=== PATIENT | female | born 1980 | race Caucasian/White ===

== ENCOUNTER → 2023-06-09 08:20 | Outpatient (BNVA) | payer OTHER, SELFPAY | PROVIDERS: Visit Provider Physician Assistant ==

== ENCOUNTER 2023-06-23 11:22 | Outpatient (AMB) | payer OTHER, MEDICAID, SELFPAY ==
--- NOTE | 2023-06-23 12:44 | MHC.OFFVISWM ---
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.6 HPI Details Start time: 12.15pm, End time: 1.30pm ?I spent 40 minutes speaking with the patient on the phone plus an additional 5 minutes reviewing and updating records for a total of 45 minutes HPI Comments History of Present Illness Details Previous weight loss efforts: self diets, GLP-1 (Semaglutide lost 27lbs in 3 months but regained all of it) Wakes up: 6.30am, Sleeps: 11pm Breakfast: 9am (eggs and cheese with bagel) Lunch: 2pm (mac and cheese, fast food) Dinner: 6pm (chicken, vegetable, potatoes) Snacks: 4pm (donut), 8pm (ice cream) Exercise: has home treadmill and rowing machine Fluids: Coffee 3-4 cups/day (sugar), tea: none, soda: none, juice: x3/wk cranberry juice, ETOH: 1-2/wk (1 glass each) PFSH Medical History (Updated 06/23/23 @ 13:00 by Shahab Leavitt MD) Heavy menses Sleep apnea with use of continuous positive airway pressure (CPAP) Surgical History (Updated 06/09/23 @ 08:57 by Kirstin Obregon CMA) Hx of dilation and curettage History of wisdom tooth extraction Hx of breast biopsy Family History (Updated 06/09/23 @ 08:58 by Kirstin Obregon CMA) Maternal Aunt Breast CA Social History (Updated 06/09/23 @ 08:58 by Kirstin Obregon CMA) Alcohol intake: current Alcohol intake frequency: other Comment: once a week Patient Tobacco Use Status: Never used Tobacco Assessment & Plan Assessment & Plan (1) Obesity: Code(s): E66.9 - Obesity, unspecified Qualifiers: Obesity type: due to excess calories Obesity classification: adult class 2 (BMI 35 - 39.9) Serious obesity comorbidity presence: with serious comorbidity Body mass index: BMI 36.0-36.9 Qualified Code(s): E66.01 - Morbid (severe) obesity due to excess calories; Z68.36 - Body mass index [BMI] 36.0-36.9, adult Plan: 1.? Plan for lap sleeve gastrectomy. If diaphragmatic or ventral hernias are present at time of surgery, these will be repaired laparoscopically as well. Risks and complications were discussed in detail including possible conversion to an open procedure, anastomotic leak, bleeding requiring transfusion, small bowel obstruction, , DVT and pulmonary embolism, cardiac, or pulmonary complications, as moth exterminator complications such as anastomotic ulcer, insufficient weight loss and vitamin deficiencies. I emphasized the importance of close follow-up, adherence to instructions and good communication. 2. Nutritional counseling. Start with 2 Isopure protein (buy at [employer], [employer], [employer], [employer]) shakes (HALF scoop in 8oz water each) at 7am-9am and 10am-12pm, 2 protein bars (Zone Perfect protein bars, buy at [employer], [employer], [employer], or [employer]) at 1pm-3pm, 4pm-6pm, dinner at 7pm (8 forks of protein and 8 forks of salad/vegetables) and one more Isopure protein shake (HALF scoop in 8oz water) after dinner at 11pm-1am. So you do 3 protein shakes, 2 protein bars and one meal per day. Meal to include lean meat (beef, fish, pork, turkey, chicken), or iraqi yogurt, or egg whites, or beans with a salad with olive oil and fruits (berries, pears, apples, kiwi). Avoid salt, breads, potatoes, rice, pasta, desserts. 3. Each shake would be drunk slowly, like coffee in a period of 2 hours. 4. Cut each bar in 4 pieces and eat each piece in 30min ?to make each bar last 2 hours. 5. I emphasized the importance of measuring accurately the food portion and measure it when serving the food in plate 6. The meal portions include 8 full-size forks of meat and 8 full-size forks of salad. You always eat the meat portion but you can replace up to 4 forks for salad/vegetables with rice, potatoes or pasta, or a fruit ?if you like. The less you do it the better weight loss will be. 7. One full-size fork is what it can be scooped on the fork without falling aside and not what can be bit with the fork. Use regular forks like those you find in a typical restaurant. 8.? Please send me weight measurements tomorrow and then once a week. Always include your diet and exercise plan. 9. Start treadmill with an incline of 2.0 and speed of 3.0. Increase incline by 1 every 3 min to a max incline of 8.0, stay 3min at 8.0 and then return to 2.0 and repeat same steps until calorie goal is met. Goal is to burn 2000 calories per week on exercise, which means either 300 calories daily, or 400 calories 5 days per week, or 500 calories 4 days per week, or 650 calories 3 days per week. 10.?It is important of avoiding and for at least 18 months postoperatively and has been discussed at the infosession. 11. Goal is to lose at least 1.5-2lbs per week 12. Goal to lose 10% of your weight before surgery, which is about 23lbs. Ultimate weight goal: 210lbs before surgery 13. Please follow the diet plan exactly without any change. If you don't like something about the plan or you feel hungry you need to communicate with me so I can help you revise the plan. You should not change the plan yourself. Orders: Orders Insulin Today E66.9 - Obesity, unspecified, G47.30 - Sleep apnea, unspecified, N92.0 - Excessive and frequent menstruation with regular cycle, Z68.36 - Body mass index [BMI] 36.0-36.9, adult Complete Blood Count Auto Diff Today E66.9 - Obesity, unspecified, G47.30 - Sleep apnea, unspecified, N92.0 - Excessive and frequent menstruation with regular cycle, Z68.36 - Body mass index [BMI] 36.0-36.9, adult Lipid Panel Today E66.9 - Obesity, unspecified, G47.30 - Sleep apnea, unspecified, N92.0 - Excessive and frequent menstruation with regular cycle, Z68.36 - Body mass index [BMI] 36.0-36.9, adult IRON PROFILE Today E66.9 - Obesity, unspecified, G47.30 - Sleep apnea, unspecified, N92.0 - Excessive and frequent menstruation with regular cycle, Z68.36 - Body mass index [BMI] 36.0-36.9, adult Comprehensive Met. Panel Today E66.9 - Obesity, unspecified, G47.30 - Sleep apnea, unspecified, N92.0 - Excessive and frequent menstruation with regular cycle, Z68.36 - Body mass index [BMI] 36.0-36.9, adult Vitamin B12 and Folate Today E66.9 - Obesity, unspecified, G47.30 - Sleep apnea, unspecified, N92.0 - Excessive and frequent menstruation with regular cycle, Z68.36 - Body mass index [BMI] 36.0-36.9, adult Zinc Today E66.9 - Obesity, unspecified, G47.30 - Sleep apnea, unspecified, N92.0 - Excessive and frequent menstruation with regular cycle, Z68.36 - Body mass index [BMI] 36.0-36.9, adult C Reactive Protein Today E66.9 - Obesity, unspecified, G47.30 - Sleep apnea, unspecified, N92.0 - Excessive and frequent menstruation with regular cycle, Z68.36 - Body mass index [BMI] 36.0-36.9, adult TSH reflex Free T4 Today E66.9 - Obesity, unspecified, G47.30 - Sleep apnea, unspecified, N92.0 - Excessive and frequent menstruation with regular cycle, Z68.36 - Body mass index [BMI] 36.0-36.9, adult Ferritin Today E66.9 - Obesity, unspecified, G47.30 - Sleep apnea, unspecified, N92.0 - Excessive and frequent menstruation with regular cycle, Z68.36 - Body mass index [BMI] 36.0-36.9, adult XR chest 2V Today E66.9 - Obesity, unspecified, G47.30 - Sleep apnea, unspecified, N92.0 - Excessive and frequent menstruation with regular cycle, Z68.36 - Body mass index [BMI] 36.0-36.9, adult ECG 12 lead EKG Today E66.9 - Obesity, unspecified, G47.30 - Sleep apnea, unspecified, N92.0 - Excessive and frequent menstruation with regular cycle, Z68.36 - Body mass index [BMI] 36.0-36.9, adult FL upper GI w air Today E66.9 - Obesity, unspecified, G47.30 - Sleep apnea, unspecified, N92.0 - Excessive and frequent menstruation with regular cycle, Z68.36 - Body mass index [BMI] 36.0-36.9, adult Hemoglobin A1c Today E66.9 - Obesity, unspecified, G47.30 - Sleep apnea, unspecified, N92.0 - Excessive and frequent menstruation with regular cycle, Z68.36 - Body mass index [BMI] 36.0-36.9, adult H Pylori Breath Test Today E66.9 - Obesity, unspecified, G47.30 - Sleep apnea, unspecified, N92.0 - Excessive and frequent menstruation with regular cycle, Z68.36 - Body mass index [BMI] 36.0-36.9, adult Vitamin B1 Today E66.9 - Obesity, unspecified, G47.30 - Sleep apnea, unspecified, N92.0 - Excessive and frequent menstruation with regular cycle, Z68.36 - Body mass index [BMI] 36.0-36.9, adult Vitamin A Today E66.9 - Obesity, unspecified, G47.30 - Sleep apnea, unspecified, N92.0 - Excessive and frequent menstruation with regular cycle, Z68.36 - Body mass index [BMI] 36.0-36.9, adult Vitamin D 25-OH Total Today E66.9 - Obesity, unspecified, G47.30 - Sleep apnea, unspecified, N92.0 - Excessive and frequent menstruation with regular cycle, Z68.36 - Body mass index [BMI] 36.0-36.9, adult US abdomen comp w elastography Today E66.9 - Obesity, unspecified, G47.30 - Sleep apnea, unspecified, N92.0 - Excessive and frequent menstruation with regular cycle, Z68.36 - Body mass index [BMI] 36.0-36.9, adult Referrals Behavioral Health Referral E66.9 - Obesity, unspecified, G47.30 - Sleep apnea, unspecified, N92.0 - Excessive and frequent menstruation with regular cycle, Z68.36 - Body mass index [BMI] 36.0-36.9, adult Nutrition/Dietitian Referral E66.9 - Obesity, unspecified, G47.30 - Sleep apnea, unspecified, N92.0 - Excessive and frequent menstruation with regular cycle, Z68.36 - Body mass index [BMI] 36.0-36.9, adult Telehealth Telehealth Location of provider rendering services: practice address Location of patient: address on file Patient Identification confirmed using: Name, : Yes Telehealth method: voice only Patient verbally consented to treatment: Yes Patient verbally consented to billing insurance company: Yes Patient informed of any privacy concerns related to visit: Yes Minutes spent on Phone/Video with Pt.: 45 Coding Level of Care Code Tele [facility] Pt Level 4 (08771) Diagnoses Class 2 severe obesity due to excess calories with serious comorbidity and body mass index (BMI) of 36.0 to 36.9 in adult E66.01; Z68.36 Obesity type: due to excess calories Obesity classification: adult class 2 (BMI 35 - 39.9) Serious obesity comorbidity presence: with serious comorbidity Body mass index: BMI 36.0-36.9 Time Spent (min) 45
[2023-06-23 12:54] VITALS: BMI 36.5
== END 2023-06-23 13:31 | disposition home or self-care (01) ==
LOC: HO.HBS 11:22
PROVIDERS: Visit Provider Surgery
DX: E66.01 Morbid (severe) obesity due to excess calories (principal); Z68.36 Body mass index [BMI] 36.0-36.9, adult
CPT/HCPCS: 99443

== ENCOUNTER → 2023-06-23 11:22 | Outpatient (BNVA) | payer OTHER, SELFPAY | PROVIDERS: Visit Provider Surgery ==

== ENCOUNTER 2023-06-26 08:23 | Outpatient (REF) | payer OTHER, SELFPAY ==
--- NOTE | ~2023-06-26 | US_ITS ---
EXAMINATION: US COMPLETE ABDOMEN WITH LIVER ELASTOGRAPHY CLINICAL INFORMATION: Obesity COMPARISON: None available. TECHNIQUE: Real-time imaging of the abdominal viscera. Noninvasive ultrasound liver fibrosis assessment is performed using [employer] ElastPQ point quantification shear wave elastography (2D-SWE) with a C5-2 MHz transducer. Multiple elastography samples are obtained. FINDINGS: PANCREAS: Normal. The visualized pancreatic head and body are normal in appearance. The remainder of the pancreas is obscured from visualization by the overlying bowel gas. ABDOMINAL AORTA: The proximal, middle, and distal aortic segments are normal in caliber. INFERIOR VENA CAVA: Visualized portions are normal. LIVER: Normal. The liver demonstrates normal size, contour and echogenicity. No focal lesion or intrahepatic biliary duct dilatation. The right lobe measures 17.6 cm in length. The left lobe measures 10.5 cm in length. Portal flow is antegrade. Shear wave liver elastography median stiffness is 1.46 m/s (reference: normal median stiffness is 1.3 m/s or less). IQR/median stiffness to assess sampling precision is 0.22 (reference: good quality data set is IQR/median stiffness of 0.15 or less). GALLBLADDER: Cholelithiasis is present without gallbladder wall thickening or pericholecystic fluid. COMMON BILE DUCT: Normal in caliber measuring 0.3 cm in diameter. RIGHT KIDNEY: Normal. No hydronephrosis. No renal calculi or focal parenchymal lesions. The kidney measures 11.2 cm in maximum dimension. LEFT KIDNEY: Normal. No hydronephrosis. No renal calculi or focal parenchymal lesions. The kidney measures 10 cm in maximum dimension. SPLEEN: Normal. The spleen measures 9.4 cm in maximum dimension. FREE FLUID: None. US/US abdomen comp w elastography IMPRESSION: 1. Cholelithiasis without evidence of acute cholecystitis. 2. Liver elastography: Although measurements appear to rule out compensated advanced chronic liver disease, there is statistical variability of the sampling which decreases accuracy. REFERENCE: Society of Radiologists in Ultrasound Liver Stiffness Thresholds (2019): LIVER STIFFNESS THRESHOLDS: *Liver Stiffness equal or less than 1.3 m/s: High probability of being normal. *Liver Stiffness less than 1.7 m/s: In the absence of other known clinical signs, rules out compensated advanced chronic liver disease. *Liver Stiffness 1.7-2.1 m/s: Suggestive of compensated advanced chronic liver disease but need further test for confirmation. *Liver Stiffness over 2.1 m/s: Rules in compensated advanced chronic liver disease. *Liver Stiffness over 2.4 m/s: Suggestive of clinically significant portal hypertension. QUALITY OF DATA SET: *IQR/Median value equal or less than 0.15 implies a quality data set. *IQR/Median value over 0.15 implies a poor quality data set. SIGNIFICANT CHANGE FROM PRIOR EXAM: Significant change if liver stiffness measurement is 10% or greater from prior exam. OTHER CONSIDERATIONS: The stage of liver fibrosis may be overestimated in the setting of acute hepatitis, liver inflammation, elevated liver function tests, hepatic vascular congestion, obstructive cholestasis, non-fasting state, and infiltrative diseases such as amyloidosis and lymphoma. In some patients with NAFLD, the liver stiffness thresholds for compensated advanced chronic liver disease may be lower. In causes other than viral hepatitis and NAFLD, liver stiffness thresholds are not well established.
== END 2023-06-26 08:24 | disposition home or self-care (01) ==
LOC: HO.US 08:23
PROVIDERS: PCP Internal Medicine; Visit Provider Surgery
DX: E66.9 Obesity, unspecified (principal); Z68.36 Body mass index [BMI] 36.0-36.9, adult; G47.30 Sleep apnea, unspecified; N92.0 Excessive and frequent menstruation with regular cycle
CPT/HCPCS: 76700; 76981

== ENCOUNTER 2023-07-03 08:18 | Outpatient (REF) | payer OTHER, MEDICAID, SELFPAY ==
--- NOTE | ~2023-07-03 | XR_ITS ---
EXAMINATION: XR CHEST CLINICAL INFORMATION: Obesity unspecified. COMPARISON: None available. TECHNIQUE: 2 views of the chest were obtained. FINDINGS: There is no gross pneumothorax. Heart size is normal. No pleural effusion. No focal consolidation to suggest pneumonia. Mild degenerative changes in the thoracic spine. XR/XR chest 2V IMPRESSION: No evidence of pneumonia.
[2023-07-03 08:38] LABS: MANUAL DIFF FLAG NO
--- NOTE | 2023-07-03 08:38 | ECG_ITS ---
Test Reason : OBESITY Blood Pressure : / mmHG Vent. Rate : 061 BPM Atrial Rate : 061 BPM P-R Int : 166 ms QRS Dur : 080 ms QT Int : 440 ms P-R-T Axes : 037 055 033 degrees QTc Int : 442 ms Normal sinus rhythm with sinus arrhythmia Normal ECG No previous ECGs available Referred By: Shahab Leavitt Electronically Signed By:KALIA BEAUCHAMP MD
[2023-07-03 09:38] LABS: Basophils Percent Auto 0.8 % (0-2); Eosinophils Absolute Auto 0.1 X10*3/uL (0.0-0.4); Eosinophils Percent Auto 2.2 % (0-4); Hematocrit 39.6 % (37.0-47.0); Hemoglobin 13.3 g/dl (12.0-16.0); Imm Gran Abs Auto 0.01 X10*3/uL (0.00-0.03); Imm Gran Pct Auto 0.2 % (0.0-0.4); Lymphocytes Absolute Auto 1.3 X10*3/uL (1.2-4.9); Lymphocytes Percent Auto 26.2 % (20-40); Mean Corpuscular HGB Conc 33.6 g/dl (31.0-35.0); Mean Corpuscular Hemoglobin 29.7 pg (27.0-33.0); Mean Corpuscular Volume 88.4 fL (80.0-98.0); Mean Platelet Volume 10.3 fL (9.4-12.3); Monocytes Absolute Auto 0.6 X10*3/uL (0.1-1.2); Monocytes Percent Auto 11.5 % (2-11); Neutrophils Absolute Auto 2.9 x10*3/uL (2.0-8.3); Neutrophils Percent Auto 59.1 % (45-73); Platelet Count 293 X10*3/uL (160-400); Red Blood Count 4.48 X10*6/uL (4.20-5.50); Red Cell Distribution Width 17.4 % (11.0-16.0); White Blood Count 4.9 X10*3/uL (4.8-10.8)
[2023-07-03 09:43] LABS: Estimated Average Glucose 94 mg/dL; Hemoglobin A1c % 4.9 % (<6.0)
[2023-07-03 10:04] LABS: Alanine Aminotransferase 20 U/L (0-31); Alkaline Phosphatase 56 U/L (39-117); Anion Gap 12 (12-20); Aspartate Amino Transferase 23 U/L (5-31); Bilirubin Total 0.4 mg/dL (0.0-1.0); Blood Urea Nitrogen 14 mg/dL (9-16); C Reactive Protein 0.51 mg/dL (< or = 0.50); Calcium 9.4 mg/dL (8.4-10.2); Carbon Dioxide 25 mmol/L (22-29); Chloride 107 mmol/L (96-108); Cholesterol 179 mg/dL (<200); Estimated Glomerular Filt Rate > 60; Glucose Random 82 mg/dL (60-115); HDL Cholesterol 61 mg/dL (>40); Iron 72 mcg/dL (30-160); LDL Cholesterol Calculated 104 mg/dL (<100); Percent Iron Saturation 24 % (15-50); Potassium 4.1 mmol/L (3.3-5.1); Sodium 140 mmol/L (135-145); Total Iron Binding Capacity 298 mcg/dL (228-428); Triglycerides 72 mg/dL (<150); Unsaturated Iron Binding 226 ug/dL
[2023-07-03 10:20] LABS: Ferritin 31 ng/mL (10-250); Insulin 6 uU/mL (2-29); TSH reflex Free T4 1.05 uIU/mL (0.32-4.0); Vitamin D 25-OH Total 25.3 ng/mL (>30)
[2023-07-03 10:30] LABS: Folate 14.9 ng/mL (> or = 4.0); Vitamin B12 772 pg/mL (200-900)
[2023-07-07 03:13] LABS: Zinc 97 mcg/dL (60-130)
[2023-07-07 19:58] LABS: Vitamin A 42 mcg/dL (38-98)
[2023-07-08 16:02] LABS: Vitamin B1 15 nmol/L (8-30)
== END 2023-07-03 08:19 | disposition home or self-care (01) ==
LOC: HO.LAB 08:18
PROVIDERS: PCP Internal Medicine; Visit Provider Surgery
DX: E66.9 Obesity, unspecified (principal); Z68.36 Body mass index [BMI] 36.0-36.9, adult; G47.30 Sleep apnea, unspecified; N92.0 Excessive and frequent menstruation with regular cycle
CPT/HCPCS: 36415; 71046; 80053; 80061; 82306; 82607; 82728; 82746; 83036; 83525; 83540; 84425; 84443; 84590; 84630; 85025; 86140; 93005

== ENCOUNTER → 2023-07-03 08:38 | Outpatient (BNV) | payer OTHER, MEDICAID, SELFPAY | PROVIDERS: PCP Internal Medicine; Visit Provider Internal Medicine Cardiovascular Disease | DX: I49.8 Other specified cardiac arrhythmias (principal); E66.9 Obesity, unspecified | CPT/HCPCS: 93010 ==

== ENCOUNTER 2023-07-07 10:17 | Outpatient (AMB) | payer OTHER, MEDICAID, SELFPAY ==
--- NOTE | 2023-07-07 10:09 | A.OFFVIS_ITS ---
Intake Intake Visit Reasons: (TV) Initial Nutrition [facility] Transit Planning Manager Required: No Allergies No Known Allergies Allergy (Verified 06/23/23 12:44) HPI Nutrition Presentation Reason for consult elevated BMI Diet Assmnt Details using Issopure infusion 1/2 scoop 3x per day 2 zone perfect bars dinner meal - protein and vegetables reports feeling hungry between 10am-1pm Prior to the program, reports mindless eating, didn't realize how often she was getting restaurant foods, drinks, etc until she started changing eating habits. [id number] was vegan, then vegetarian aft er in 2019, then resumed eating animal products. [facility] online classes: completed , reviewed. Previous weight loss methods attempted self diets, GLP-1 (Semaglutide lost 27lbs in 3 months but regained all of it) Dietary counseling reduction Who buys your food self Who prepares/cooks your food self Lifestyle Food frequency Fruit: daily, Vegetables: daily, Grains/pasta/breads/cereal (carbs): daily, Meats/poultry/fish (protein): daily and Meat substitutes/nuts/seeds/legumes: daily Diagnosis Nutrition problem #1 overweight/obesity As related to (etiology) #1 excess energy intake and physical inactivity As evidenced by (sign/symptom) #1 high BMI Monitoring/Goals Nutrition problem monitoring total energy intake, level of knowledge/skill, total PRO intake, total CHO intake and weight Outcome progress progressing Learning/Education Readiness to learn good Stages of change action Educational materials provided Yes Most Recent Diabetes Results: Cholesterol 179 mg/dL (<200) 07/03/23 HDL Cholesterol 61 mg/dL (>40) 07/03/23 Triglycerides 72 mg/dL (<150) 07/03/23 Creatinine 0.83 mg/dL (0.5-1.4) 07/03/23 Blood Urea Nitrogen 14 mg/dL (9-16) 07/03/23 Sodium 140 mmol/L (135-145) 07/03/23 Potassium 4.1 mmol/L (3.3-5.1) 07/03/23 Chloride 107 mmol/L (96-108) 07/03/23 Carbon Dioxide 25 mmol/L (22-29) 07/03/23 Calcium 9.4 mg/dL (8.4-10.2) 07/03/23 AST 23 U/L (5-31) 07/03/23 ALT 20 U/L (0-31) 07/03/23 Total Protein 7.0 g/dL (6.5-8.0) 07/03/23 Albumin 4.0 g/dL (3.5-5.0) 07/03/23 PFSH Medical History (Updated 06/23/23 @ 13:00 by Shahab Leavitt MD) Heavy menses Sleep apnea with use of continuous positive airway pressure (CPAP) Surgical History (Updated 06/09/23 @ 08:57 by Kirstin Obregon CMA) Hx of dilation and curettage History of wisdom tooth extraction Hx of breast biopsy Family History (Updated 06/09/23 @ 08:58 by Kirstin Obregon CMA) Maternal Aunt Breast CA Social History (Updated 06/09/23 @ 08:58 by Kirstin Obregon CMA) Alcohol intake: current Alcohol intake frequency: other Comment: once a week Patient Tobacco Use Status: Never used Tobacco Assessment & Plan Assessment & Plan (1) Obesity (BMI 30-39.9): Code(s): E66.9 - Obesity, unspecified Plan Patient is cleared from a nutrition standpoint for bariatric surgery. Educational requirements have been completed. Reviewed vitamin supplementation and commitment to protein shake for several months post surgery. Encouraged communication with office as needed Telehealth Telehealth Location of provider rendering services: practice address Location of patient: address on file Patient Identification confirmed using: Name, : Yes Telehealth method: voice only Patient verbally consented to treatment: Yes Patient verbally consented to billing insurance company: Yes Patient informed of any privacy concerns related to visit: Yes Minutes spent on Phone/Video with Pt.: 20 Coding Level of Care Code Nutr Indiv Intake (15620) Diagnoses Obesity (BMI 30-39.9) E66.9 Time Spent (min) 20
== END 2023-07-07 10:29 | disposition home or self-care (01) ==
LOC: HO.HBS 10:17
PROVIDERS: PCP Internal Medicine; Visit Provider Dietitian, Registered
DX: E66.9 Obesity, unspecified (principal)

== ENCOUNTER → 2023-07-07 10:17 | Outpatient (BNVA) | payer OTHER, MEDICAID, SELFPAY | PROVIDERS: PCP Internal Medicine; Visit Provider Dietitian, Registered | DX: E66.9 Obesity, unspecified (principal); Z71.3 Dietary counseling and surveillance | CPT/HCPCS: 97802 ==

== ENCOUNTER 2023-07-17 07:33 | Outpatient (AMB) | payer OTHER, MEDICAID, SELFPAY ==
--- NOTE | 2023-07-17 09:12 | MHC.OFFVISWM ---
Intake VS Expanded 07/17/23 09:16 Height 5 ft 7 in Weight 211 lb 4 oz BMI 33.1 Body Fat % 46.1 Body Fat Mass 97.4 Fat Free Mass 114 Visceral Fat Rating 12.1 Body Water % 41 Body Water Mass 86.6 Basal Metabolic Rate/Score 1,650 Intake Visit Reasons: TV Follow Up SWL - 1ST Allergies No Known Allergies Allergy (Verified 06/23/23 12:44) HPI TV Follow Up SWL - 1ST HPI Details Start time: 9.03am, End time: 9.23am ?I spent 15 minutes speaking with the patient on the phone plus an additional 5 minutes reviewing and updating records for a total of 20 minutes HPI Comments History of Present Illness Details Overall weight loss: 22lbs, or 9.43% TBWL Is doing 3 Isopure Infusions (1/2 scoop in 8oz water), 2 Zone Perfect protein bars and one meal (8 forks of meat and 8 forks of salad or vegetables) Exercise: is doing treadmill daily for 475 calories per work-out PFSH Medical History (Updated 07/17/23 @ 09:09 by Shahab Leavitt MD) Heavy menses Sleep apnea with use of continuous positive airway pressure (CPAP) Surgical History (Updated 06/09/23 @ 08:57 by Kirstin Obregon CMA) Hx of dilation and curettage History of wisdom tooth extraction Hx of breast biopsy Family History (Updated 06/09/23 @ 08:58 by Kirstin Obregon CMA) Maternal Aunt Breast CA Social History (Updated 06/09/23 @ 08:58 by Kirstin Obregon CMA) Alcohol intake: current Alcohol intake frequency: other Comment: once a week Patient Tobacco Use Status: Never used Tobacco Assessment & Plan Assessment & Plan (1) Obesity: Code(s): E66.9 - Obesity, unspecified Qualifiers: Obesity type: due to excess calories Obesity classification: adult class 2 (BMI 35 - 39.9) Serious obesity comorbidity presence: with serious comorbidity Body mass index: BMI 36.0-36.9 Qualified Code(s): E66.01 - Morbid (severe) obesity due to excess calories; Z68.36 - Body mass index [BMI] 36.0-36.9, adult Plan: 1. Plan for lap sleeve gastrectomy including upper GI endoscopy. All tests has been completed and reviewed and the patient is cleared for the surgery. ?If diaphragmatic or ventral hernias are present at time of surgery, these will be repaired laparoscopically as well. Risks and complications were discussed in detail including possible conversion to an open procedure, anastomotic leak, bleeding requiring transfusion, small bowel obstruction, , DVT and pulmonary embolism, cardiac, or pulmonary complications, as director long term care complications such as anastomotic ulcer, insufficient weight loss and vitamin deficiencies. I emphasized the importance of close follow-up, adherence to instructions and good communication. So far she has proven to be an excellent communicator and very compliant with all our directions accomplishing a great weight loss. I believe that she is an excellent candidate and she is ready. 2. The patient participated in a structured preoperative lifestyle intervention program supervised by a physician the 3 weeks preceding the surgical procedure. The lifestyle intervention included a structured nutritional plan with a specific daily protein intake goal, an exercise plan with a 2000 calorie burn weekly goal, weekly behavior modification guidance and completion of eight 1-hour online nutritional classes and passing successfully the corresponding quizzes. Adherence to preoperative care plan was demonstrated by completing an extensive preoperative work-up. Program participation was demonstrated by completing 2 visits with our medical team and by sharing weekly weight measurements weekly for 4 consecutive weeks via an approved body composition scale. Compliance to the lifestyle intervention was demonstrated by achieving a 22lbs weight-loss or 9.43% total body weight loss (TBWL). No medications were used to achieve this weight loss. In our published experience an over 7% preoperative TBWL, achieved by meeting the diet and exercise goals of our program improves surgical outcomes, reduces the potential for surgical complications, and predicts a statistically significant higher weight loss up to 6 years postoperatively. 3. Continue same nutritional plan of 3 Isopure Infusions (1/2 scoop in 8oz water), 2 Zone Perfect protein bars and one meal (8 forks of meat and 8 forks of salad or vegetables) 4. Exercise: continue treadmill daily for 475 calories per work-out 5. Continue to send me weight measurements weekly on Wednesdays Medications: New cholecalciferol (vitamin D3) 125 mcg PO DAILY 90 caps 0RF E55.9 - Vitamin D deficiency, unspecified Telehealth Telehealth Location of provider rendering services: practice address Location of patient: address on file Patient Identification confirmed using: Name, : Yes Telehealth method: voice only Patient verbally consented to treatment: Yes Patient verbally consented to billing insurance company: Yes Patient informed of any privacy concerns related to visit: Yes Minutes spent on Phone/Video with Pt.: 20 Coding Level of Care Code Tele Est Pt Level 3 (43594) Diagnoses Class 2 severe obesity due to excess calories with serious comorbidity and body mass index (BMI) of 36.0 to 36.9 in adult E66.01; Z68.36 Obesity type: due to excess calories Obesity classification: adult class 2 (BMI 35 - 39.9) Serious obesity comorbidity presence: with serious comorbidity Body mass index: BMI 36.0-36.9 Time Spent (min) 20
[2023-07-17 09:16] VITALS: BMI 33.1
== END 2023-07-17 09:25 | disposition home or self-care (01) ==
LOC: HO.HBS 07:33
PROVIDERS: PCP Internal Medicine; Visit Provider Surgery
DX: E66.09 Other obesity due to excess calories (principal); Z68.33 Body mass index [BMI] 33.0-33.9, adult
CPT/HCPCS: 99442

== ENCOUNTER → 2023-07-17 07:33 | Outpatient (BNVA) | payer OTHER, MEDICAID, SELFPAY | PROVIDERS: PCP Internal Medicine; Visit Provider Surgery ==

== ENCOUNTER 2023-07-20 12:07 | Outpatient (AMB) | payer OTHER, MEDICAID, SELFPAY ==
--- NOTE | 2023-07-20 12:01 | MHC.WMTHER ---
Intake Intake Visit Reasons: (TV) BH Intake Allergies No Known Allergies Allergy (Verified 06/23/23 12:44) [facility] Medical History (Updated 07/20/23 @ 12:20 by Khushboo Horner) Heavy menses Sleep apnea with use of continuous positive airway pressure (CPAP) Surgical History (Updated 06/09/23 @ 08:57 by Kirstin Obregon CMA) Hx of dilation and curettage History of wisdom tooth extraction Hx of breast biopsy Family History (Updated 06/09/23 @ 08:58 by Kirstin Obregon CMA) Maternal Aunt Breast CA Social History (Updated 06/09/23 @ 08:58 by Kirstin Obregon CMA) Alcohol intake: current Alcohol intake frequency: other Comment: once a week Patient Tobacco Use Status: Never used Tobacco Behavioral Health Assessment Weight Management Therapy Therapy Notes Details Patient is looking to have weight loss surgery to help improve her health and quality of life. She reported being in therapy last year (anxiety, , stress) and is currently in therapy for marriage counseling with her . Pt has no history of alcohol or drug abuse. She has no history of inpatient psychiatric admissions. Takes half of a 1mg Clonazepam every morning. Presenting Concerns Referral Source provider Reason for referral weight loss surgery evaluation Precipitating Event obesity Living Situation At risk of losing current housing? No Satisfied with current living situation? Yes Comments Patient lives with her , children 17, 12, 5, and 3 years old. Food/Weight/Diet Expectations of change weight loss and maintenance History/Relationship with food Pt stated that when she was alone, after her kids would be in bed, she would treat herself to bowl of ice cream, or be alone in the car without interruption, then would have shame and hide the trash. She would sometimes skip meals, would have coffee with sweeteners. She would eat late morning/afternoon, kids foods, mac and cheese, snacking, History/Relationship with weight Patient stated that she has struggled with her weight for years on and off. She stated that her mom was overweight and often did not see healthy eating habits. During her first , she was often shamed by him and his family because of how strict they were. History/Relationship with dieting Isogenix, counting calories, semaglutide, Binge Eating Do you frequently eat large amounts of food in short periods of time, not feeling physically hungry? No Do you feel out of control when you eat a large amount of food in a short period of time? No Do you eat large amounts of food rapidly and typically alone? Yes Night Eating Do you wake up at least once during the night to eat? No If you wake up in the night, do you find that it is necessary to eat something in order to fall back asleep? No Do you have little or no appetite in the morning and feel very hungry in the evening, often overeating between dinner and when you go to bed? Yes Social History Family history and relationship Patient is and remarried. She has 4 children. 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 none Education Highest grade completed high school Preferred learning style Auditory, Verbal, Written, Learn by doing and Visual Currently enrolled in educational program? No Interested in further educational program? 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 No Meaningful activities exercise Financial Situation Describe current financial situation Comfortable Financial assistance? None Service Service? No Mental Health and Addiction Treatment Current/Past substance abuse? No Current/Past addictive behavior concerns? No Medical and Physical Health Summary Physical exam in the last year? Yes Pain Screening Current pain? No Pain in the last few months? No Medications Is the patient compliant with medications? Yes Does the patient have Hassan Guardian in place? Not applicable Does the patient use complimentary health approaches? No Trauma/Abuse History History of trauma? No Questionnaires PHQ-9 Over the last 2 weeks, how often have you been bothered by any of the following problems? 1. Little interest or pleasure in doing things: several days 2. Feeling down, depressed, or hopeless: several days 3. Trouble falling or staying asleep, or sleeping too much: not at all 4. Feeling tired or having little energy: nearly every day 5. Poor appetite or overeating: more than half the days 6. Feeling bad about yourself - or that you are a failure or have let yourself or your family down: several days 7. Trouble concentrating on things, such as reading the newspaper or watching television: several days 8. Moving or speaking so slowly that other people could have noticed. Or the opposite - being so fidgety or restless that you have been moving around a lot more than usual: not at all 9. Thoughts that you would be better off or of hurting yourself in some way: not at all Total score: 9 Source: Developed by Drs. Angel Barboza, Sofía Alegria, Butch Juan and colleagues, with an educational lauryn from [employer]. Binge Eating Scale Group 1 A. I don't feel self-conscious about my wt. or body size when I'm with others. B. I feel concerned about how I look to others, but it normally does not make me fell disappointed with myself C. I do get self-conscious about my appearance and wt. which makes me feel disappointed in myself. D. I feel very self-conscious about my wt. and frequently I feel intense shame and disgust for myself. I try to avoid social contacts because of my self-consciousness. Response Group 1: B Group 2 A. I don't have any difficulty eating slowly in the proper manner. B. Although I seem to gobble down foods, I don't end up feeling stuffed because of eating to much. C. At times, I tend to eat quickly and then, I feel uncomfortably full afterwards. D. I have the habit of bolting down my food, without really chewing it. When this happens I usually feel uncomfortably stuffed because I've eaten to much. Response Group 2: B Group 3 A. I feel capable to control my eating urges when I want to. B. I feel like I have failed to control my eating more than the average person. C. I feel utterly helpless when it comes to feeling in control of my eating urges. D. Because I feel so helpless about controlling my eating I have become very desperate about trying to get control. Response Group 3: A Group 4 A. I don't have the habit of eating when I'm bored. B. I sometimes eat when I'm bored, but often I'm able to get busy and get my mind off food. C. I have a regular habit of eating when I'm bored, but occasionally, I can use some other activity to get my mind off eating. D. I have a strong habit of eating when I'm bored. Nothing seems to help me breath the habit. Response Group 4: D Group 5 A. I'm usually physically hungry when I eat something. B. Occasionally, I eat something on impulse even though I really am not hungry. C. I have the regular habit of eating foods, that I might not really enjoy, to satisfy a hungry feeling even though physically, I don't need the food. D. Although I'm not physically hungry, I get a hungry feeling in my mouth that only seems to be satisfied when I eat a food, like sandwich, that fills my mouth. Sometimes, when I eat the food to satisfy my mouth hunger, I then spit the food out so I won't gain weight. Response Group 5: C Group 6 A. I don't feel any guilt or self-hate after I overeat. B. After I overeat, occasionally I feel guilt or self-hate. C. Almost all the time I experience strong guilt or self-hate after I overeat. Response Group 6: B Group 7 A. I don't lose total control of my eating when dieting even after periods when I overeat. B. Sometimes when I eat a forbidden food on a diet, I feel like I blew it and eat even more. C. Frequently, I have the habit of saying to myself, I've blown it now, why not go all the way, when I overeat on a diet. When that happens I eat more. D. I have a regular habit of starting a strict diets for myself but I break the diets by going on an eating binge. My life seems to be either a feast or famine. Response Group 7: B Group 8 A. I rarely eat so much food that I feel uncomfortably stuffed afterwards. B. Usually about once a month, I each such a quantity of food, I end up feeling very stuffed. C. I have regular periods during the month when I eat large amounts of food, either at mealtime or at snacks. D. I eat so much food that I regularly feel quite uncomfortable after eating and sometimes a bit nauseous. Response Group 8: C Group 9 A. My level of calorie intake does not go up very high or go down very low on a regular basis. B. Sometimes after I overeat, I will try to reduce my caloric intake to almost nothing to compensate for the excess calories I've eaten. C. I have a regular habit of overeating during the night. It seems that my routine is not to be hungry in the morning but overeat in the evening. D. In my adult years, I have had week-long periods where I practically starve myself. This follows periods when I overeat. It seems I live a life of either feast or famine. Response Group 9: C Group 10 A. I usually am able to stop eating when I want to. I know when enough is enough. B. Every so often, I experience a compulsion to eat which I can't seem to control. C. Frequently, I experience strong urges to eat which I seem unable to control, but at other times I can control my eating urges. D. I feel incapable of controlling urges to eat. I have a fear of not being able to stop eating voluntarily. Response Group 10: B Group 11 A. I don't have any problem stopping eating when I feel full. B. I usually can stop eating when I feel full but occasionally overeat leaving me feeling uncomfortably stuffed. C. I have a problem stopping eating once I start and usually I feel uncomfortably stuffed after I eat a meal. D. Because I have a problem not being able to stop eating when I want, I sometimes have to induce vomiting to relieve my stuffed feeling. Response Group 11: B Group 12 A. I seem to eat just as much when I'm with others, Family social gatherings as when I'm by myself. B. Sometimes, when I'm with other persons, I don't eat as much as I want to eat because I'm self-conscious about my eating. C. Frequently, I eat only a small amount of food when others are present, because I'm very embarrassed about my eating. D. I feel so ashamed about overeating that I pick times to overeat when I know no one will see me. I feel like a closet eater. Response Group 12: B Group 13 A. I eat three meals a day with only an occasional between meal snack. B. I eat 3 meals a day, but I also normally snack between meals. C. When I am snacking heavily, I get in the habit of skipping regular meals. D. There are regular periods when I seem to be continually eating, with no planned meals. Response Group 13: A Group 14 A. I don't think much about trying to control unwanted eating urges. B. At least some of the time, I feel my thoughts are pre-occupied with trying to control my eating urges. C. I feel that frequently I spend much time thinking about how much I ate or about trying not to eat anymore. D. It seems to me that most of my waking hours are pre-occupied by thoughts about eating or not eating. I feel like I'm constantly struggling not to eat. Response Group 14: A Group 15 A. I don't think about food a great deal. B. I have strong craving for food but they last only for brief periods of time. C. I have days when I can't seem to think about anything else but food. D. Most of my days seem to be pre-occupied with thoughts about food. I feel like I live to eat. Response Group 15: B Group 16 A. I usually know whether or not I'm physically hungry. I take the right portion of food to satisfy me. B. Occasionally, I feel uncertain about knowing whether or not I'm physically hungry. A these times it's hard to know how much food I should take to satisfy me. C. Even though I might know how many calories I should eat, I don't have any idea what is a normal amount of food for me. Response Group 16: B Binge Eating Score: 18 Score less than 17 Minimal Risk Score between 18-26 Moderate Risk Score between 27-46 High Risk Assessment & Plan Assessment & Plan (1) Generalized anxiety disorder: Code(s): F41.1 - Generalized anxiety disorder (2) Obesity: Code(s): E66.9 - Obesity, unspecified Qualifiers: Obesity type: due to excess calories Obesity classification: adult class 2 (BMI 35 - 39.9) Serious obesity comorbidity presence: with serious comorbidity Body mass index: BMI 36.0-36.9 Qualified Code(s): E66.01 - Morbid (severe) obesity due to excess calories; Z68.36 - Body mass index [BMI] 36.0-36.9, adult (3) Sleep apnea with use of continuous positive airway pressure (CPAP): Code(s): G47.30 - Sleep apnea, unspecified Plan Patient is doing well, no major barriers. She is cleared for surgery when ready. Telehealth Telehealth Location of provider rendering services: other Location of patient: address on file Patient Identification confirmed using: Name, : Yes Telehealth method: voice only Patient verbally consented to treatment: Yes Patient verbally consented to billing insurance company: Yes Patient informed of any privacy concerns related to visit: Yes Minutes spent on Phone/Video with Pt.: 45 Coding Level of Care Code Tele Psy Diag Eval (50782) Diagnoses Generalized anxiety disorder F41.1 Class 2 severe obesity due to excess calories with serious comorbidity and body mass index (BMI) of 36.0 to 36.9 in adult E66.01; Z68.36 Obesity type: due to excess calories Obesity classification: adult class 2 (BMI 35 - 39.9) Serious obesity comorbidity presence: with serious comorbidity Body mass index: BMI 36.0-36.9 Sleep apnea with use of continuous positive airway pressure (CPAP) G47.30 Time Spent (min) 45
== END 2023-07-20 12:23 | disposition home or self-care (01) ==
LOC: HO.HBST 12:07
PROVIDERS: PCP Internal Medicine; Visit Provider Counselor Mental Health
DX: F41.1 Generalized anxiety disorder (principal); E66.01 Morbid (severe) obesity due to excess calories; Z68.36 Body mass index [BMI] 36.0-36.9, adult; G47.30 Sleep apnea, unspecified
CPT/HCPCS: 90791

== ENCOUNTER → 2023-07-20 12:07 | Outpatient (BNVA) | payer OTHER, MEDICAID, SELFPAY | PROVIDERS: PCP Internal Medicine; Visit Provider Counselor Mental Health ==

== ENCOUNTER 2023-07-28 12:43 | Day surgery (SDC) | payer OTHER, SELFPAY ==
--- NOTE | 2023-07-27 10:17 | HO.ANESPROP2 ---
HPI - Anesthesia Eval Consult details Narrative: 42yo F for Upper Endoscopy PMFSH Active Problems Active Problems: All Active Problems Generalized anxiety disorder (Acute) Vitamin D deficiency (Acute) Heavy menses (Acute) Sleep apnea with use of continuous positive airway pressure (CPAP) (Acute) BMI 36.0-36.9,adult (Acute) Obesity (Acute) Past Medical History Medical History Heavy menses Sleep apnea with use of continuous positive airway pressure (CPAP) Family History Family History Maternal Aunt Breast CA Surgical History Surgical History History of esophagogastroduodenoscopy (EGD) Hx of dilation and curettage History of wisdom tooth extraction Hx of breast biopsy Social History Social History Are you a primary palliative care physician to a significant other at home: No Do you presently have visiting nurse or other home services: No Alcohol intake: current Alcohol intake frequency: does not drink Comment: once a week Patient Tobacco Use Status: Former Tobacco user Quit Date: >10 years ago-smoked very occasionally Tobacco use type: Cigarette Use of substances other than those prescribed or required for medical reasons: No Have you been hit, kicked, punched, or otherwise hurt by someone within the past year? If so, by whom?: No Are you DNR?: No Advance Directives: No Advance Directives on File: No Recently lost weight without trying: No Eating poorly because of decreased appetite: No Nutrition Risks: No Nutritional Risk Patient : No FDLMP: 07/30/23 : No Poor oral hygiene: No Meds Allergies Allergy/AdvReac Type Severity Reaction Status Date / Time steri strips-adhesive Allergy Intermediate Blister Uncoded 08/04/23 11:09 Home Medications ?Medication ?Instructions ?Recorded ?Confirmed ?Last Taken ?Type CPAP (CPAP Machine/Device) 06/09/23 07/31/23 Unknown History clonazepam 1 mg tablet 1 mg PO DAILY PRN Anxiety 06/09/23 08/04/23 Unknown History multivitamin 1 tab PO DAILY 06/09/23 08/11/23 08/10/23 History tranexamic acid 650 mg tablet 1,300 mg PO TID PRN during menses 06/09/23 08/11/23 06/19/23 History ondansetron 4 mg disintegrating 4 mg PO Q12H PRN nausea and 08/11/23 08/11/23 Unknown History tablet vomiting pantoprazole 40 mg tablet,delayed 40 mg PO DAILY@0630 08/11/23 08/11/23 08/10/23 History release Assessment and Plan Assessment Anesthesia Assessment: Chart Reviewed
[2023-07-28 13:04] VITALS: BMI 32.4
[2023-07-28 13:14] VITALS: BP 131/69; PULSE 64; RESP 18; TEMP 36.7; O2SAT 98
[2023-07-28 13:14] LABS: UPreg QC Valid YES; Urine Pregnancy NEGATIVE (NEGATIVE)
[2023-07-28] MEDS: Lactated Ringers 1,000 ML 100 ML IVCONT (13:15)
--- NOTE | 2023-07-28 13:27 | MHC.SHP ---
Pre-Procedural Eval Section A - 24 Hr Update-Section A only Date of Service: 07/28/23 The patient is an INPATIENT: No The patient has been examined within 24 hours of the surgical procedure. The History & Physical has been completed within 30 days and I have reviewed it.: No Section B - Complete if H&P > 30 days Chief Complaint: Morbid (severe) obesity due to excess calories Relevant Family History (Specify if Yes): No Relevant Social History: None Present Medications: None Medical History: No relevant PMH History of Previous Operations: No relevant previous surgery Allergies: Allergies Allergy/AdvReac Type Severity Reaction Status Date / Time No Known Allergies Allergy Verified 07/28/23 13:25 Review of Systems Sugical H&P ROS: Negative: Constitution, Cardiovascular, Respiratory, Neurological, Psychiatric, Hem-Onc, Allergic/Immunologic, Gastrointestinal, Genitourinary, Musculoskeletal, Integumentary, Endocrine and Eyes/Ears/Nose/Throat Exam Surgical H&P Exam: Normal: HEENT, Normal: Heart, Normal: Lungs, Normal: Extremities, Normal: Abdomen, Normal: Skin and Normal: Neurological Plan Diagnosis/Plan: Unchanged (EGD to assess the stomach's anatomy and for H pylori. Risks of bleeding and perforation were discussed with the patient and she is in agreement with the plan.) I have reviewed the history and physical and performed a pertinent physical examination on my patient. No changes have occurred unless specified. Time Spent With Patient Time: Total time managing care of this patient today ____ minutes.
--- NOTE | 2023-07-28 13:36 | PM.OP ---
Brief Operative Note Date of Service: 07/28/23 Pre-op diagnosis: Obesity Post-op diagnosis: same Procedure: PROCEDURE DATE: 07/28/2023 PREOPERATIVE DIAGNOSIS: Obesity POSTOPERATIVE DIAGNOSIS: ?Same as above. 1) small hiatal hernia PROCEDURE: Pccpfkuh-zyyqyo-flsivcgonmxy with biopsies Surgeon: William Leavitt M.D.. Ph.D. Solid Waste Disposal Manager: None ? Anesthesia: IV sedation Estimated blood loss: ?Minimal FINDINGS AND PROCEDURE: ? OPERATIVE INDICATIONS: ?The patient is a 42 year old female known to me who is interested in bariatric surgery. Based on this information I recommended an upper endoscopy to evaluate the stomach's anatomy. Risks and complications of the surgery were discussed with the patient in advance particularly the possibility of perforation or bleeding that may require surgical intervention. The patient understood the risks and was in agreement with the plan. ? PROCEDURE: After informed consent was obtained by the patient, the patient was ?transferred to the Operating Room and was placed in the supine position.? After successful induction of IV sedation, a mouth block was inserted and the patient was placed in the left lateral decubitus position. An upper endoscopy was performed next, the oropharynx and esophagus appeared within the normal limits. There was a small 2-3cm hiatal hernia. The z-line was smooth. Two biopsies were obtained from the distal esophagus 2-3 cm proximal to the GE junction and two additional biopsies from the GE junction. The stomach was entered and it appeared to be of normal size. There was no gastritis. There was no stricture or ulcer. A biopsy was obtained from the gastric fundus and antrum. No significant bleeding was noted from any of the biopsy sites. The scope was then advanced into the duodenum which appeared to be normal as well. At that point the duodenum ?and the stomach were decompressed and the scope was withdrawn from the patient's mouth. The patient extubated and was transferred in stable condition to the Recovery Room for further care. I was present and performed all steps of the procedure. There were no residents to assist with this case. Andrea Leavitt M.D., Ph.D. Surgeon: Shahab Leavitt MD Anesthesia: MAC Was an Solid Waste Disposal Manager used for this Procedure?: No Estimated blood loss (mL): 0 IV fluids (mL): 400 Urine output (mL): 0 (No Wright to record output) Pathology: other (1) antrum x1, 2) gastric fundus x1, 3) GE junctionx2, 4) distal esophagus x2) Condition: stable Disposition: PACU
[2023-07-28 14:05] VITALS: BP 111/56; PULSE 67; RESP 14; TEMP 37.2; O2SAT 98
[2023-07-28 14:20] VITALS: BP 128/67; PULSE 60; RESP 20; TEMP 37.1; O2SAT 100
== END 2023-07-28 15:27 | disposition home or self-care (01) ==
PROVIDERS: Nurse Practitioner; PCP Internal Medicine; Visit Provider Surgery
PROC: 0DJ08ZZ Inspection of Upper Intestinal Tract, Via Natural or Artificial Opening Endoscopic (ICD-10-PCS; CPT 43235; principal; 2023-07-28 13:30)
DX: E66.01 Morbid (severe) obesity due to excess calories (principal); Z68.36 Body mass index [BMI] 36.0-36.9, adult; K44.9 Diaphragmatic hernia without obstruction or gangrene; N92.0 Excessive and frequent menstruation with regular cycle; E55.9 Vitamin D deficiency, unspecified; G47.33 Obstructive sleep apnea (adult) (pediatric); Z99.89 Dependence on other enabling machines and devices
CPT/HCPCS: 43239; 81025; 88305; 88313; 88342; J2250; J2704

== ENCOUNTER → 2023-07-28 12:43 | Outpatient (BNV) | payer OTHER, SELFPAY | PROVIDERS: PCP Internal Medicine; Visit Provider Surgery | DX: K44.9 Diaphragmatic hernia without obstruction or gangrene (principal) | CPT/HCPCS: 43239 ==

== ENCOUNTER 2023-07-31 08:30 | Outpatient (AMB) | payer OTHER, SELFPAY ==
--- NOTE | 2023-07-31 14:12 | A.OFFVIS_ITS ---
Intake VS Expanded 07/31/23 14:21 Height 5 ft 7 in Weight 205 lb 5 oz BMI 32.2 Body Fat % 45.2 Body Fat Mass 92.8 Fat Free Mass 112.7 Visceral Fat Rating 11.5 Body Water % 41.5 Body Water Mass 85.2 Basal Metabolic Rate/Score 1,622 Intake Visit Reasons: TV Pre Op LSG 08/11/23 Allergies No Known Allergies Allergy (Verified 07/31/23 14:12) Medication List - Last Reconciled 07/31/23 by Shahab Leavitt MD cholecalciferol (vitamin D3) 125 mcg PO DAILY clonazepam 1 mg PO DAILY CPAP (CPAP Machine/Device) As directed multivitamin 1 tab PO DAILY ondansetron 4 mg PO Q12H pantoprazole 40 mg PO DAILY polyethylene glycol 3350 (Miralax) 17 grams PO DAILY sucralfate 10 mL PO BID tranexamic acid 1,300 mg PO TID HPI TV Pre Op LSG 08/11/23 HPI Details Start time: 2.10pm, End time: 2.30pm ?I spent 15 minutes speaking with the patient on the phone plus an additional 5 minutes reviewing and updating records for a total of 20 minutes HPI Comments History of Present Illness Details Overall weight loss: 27.9lbs, or 11.95% TBWL Is doing 3 Isopure Infusions (1/2 scoop each in water), 2 Zone Perfect protein bars and one meal (8 forks of protein and 8 forks of salad or vegetables) Exercise: treadmill daily for 350 calories (speed: 3mph, incline: 2-8) PFSH Medical History (Updated 07/20/23 @ 12:20 by Khushboo Horner) Heavy menses Sleep apnea with use of continuous positive airway pressure (CPAP) Surgical History (Updated 06/09/23 @ 08:57 by Kirstin Obregon CMA) Hx of dilation and curettage History of wisdom tooth extraction Hx of breast biopsy Family History (Updated 06/09/23 @ 08:58 by Kirstin Obregon CMA) Maternal Aunt Breast CA Social History (Updated 06/09/23 @ 08:58 by Kirstin Obregon CMA) Alcohol intake: current Alcohol intake frequency: other Comment: once a week Patient Tobacco Use Status: Never used Tobacco Assessment & Plan Assessment & Plan (1) Obesity: Code(s): E66.9 - Obesity, unspecified Qualifiers: Obesity type: due to excess calories Obesity classification: adult class 2 (BMI 35 - 39.9) Serious obesity comorbidity presence: with serious comorbidity Body mass index: BMI 36.0-36.9 Qualified Code(s): E66.01 - Morbid (severe) obesity due to excess calories; Z68.36 - Body mass index [BMI] 36.0- 36.9, adult Plan: 1. Plan for lap sleeve gastrectomy including upper GI endoscopy. All tests has been completed and reviewed and the patient is cleared for the surgery. ?If diaphragmatic or ventral hernias are present at time of surgery, these will be repaired laparoscopically as well. Risks and complications were discussed in detail including possible conversion to an open procedure, anastomotic leak, bleeding requiring transfusion, small bowel obstruction, , DVT and pulmonary embolism, cardiac, or pulmonary complications, as intermediate complications such as anastomotic ulcer, insufficient weight loss and vitamin deficiencies. I emphasized the importance of close follow-up, adherence to instructions and good communication. So far she has proven to be an excellent communicator and very compliant with all our directions accomplishing a great weight loss. I believe that she is an excellent candidate and she is ready. 2. Preop prescriptions were provided and explained the purpose of each one. Need to be purchased preop. Start Pantoprazole now as you get it from the pharmacy, 1 pill per day. Sucralfate and Zofran are for after surgery as needed. 3. Bowel prep: please do 7 packets ?of Miralax mixing each one with a an 8oz glass of water, crystal light, gatorade zero, or propel ?on 08/09/23 and the same amount on 08/10/23. The Miralax you begin with one packet at a time in 8oz water or crystal light, gatorade zero, or propel ?as early in the day as you can and you do them back to back until you finish them. Continue the protein shakes during? the bowel prep. 4. Needs to purchase 1oz medicine cups . 5. Needs to purchase Children's liquid Tylenol for postop pain control. 6. She needs to stop the Tranexamic acid as of today and do not restart it until 09/10/23. Avoid aspirin, motrin, Advil, Aleve, Ibuprofen, Naproxyn. Tylenol is OK. 7. She needs to purchase the Celebrate 4:1 protein shakes from the hospital's gift shop. 8. Will do basic preop blood work-up any day between Thursday08/04/23 and Thursday08/07/23 fasting for 12 hours and is scheduled to see the Anesthesiologist prior to the day of surgery. 9. Importance of adherence to postop folllow-up and recommendations was underscored and she understands that. 10. Stop food and bars as of Thursday08/01/23 and continue with 3 Isopure protein shakes (HALF scoop EACH in 8oz water) at 8am-10am, 11am-1pm and 2pm-4pm and two more Isopure protein shakes with ONE scoop EACH in 8oz of water at 5pm- 7pm and 8pm-10pm 11. No soups, broths or V8 12. The patient's?medical?history has been reviewed and they are considered low risk for post op DVT and therefore DVT prophylaxis is not considered necessary. Travel after surgery was reviewed. The patient has not disclosed any travel plans during the first 30 days after surgery and they have been advised that within the first 30 days after surgery any bus, plane, train or car travel over 2 hours in duration is contraindicated due to the possibility of developing blood clots from immobility. Any travel, needs to include periods of ambulation of 10 minutes in duration every 2 hours.? Patient was instructed to discuss any plans for travel during this period with their bariatric surgeon.? 13. Use your CPAP daily and bring it to the hospital with your mask 14. Please take at the day of surgery the following medications: NONE 15. Stop any control pills and don't use them for one month after surgery 16. Absolutely no smoking or vaping, or marijuana until the surgery and for at least the first 4 weeks. Only nicotine patches are allowed. 17. Send me weight measurements on Thursday08/05/23 and then on Thursday08/11/23, the day of surgery before you go to the hospital. 18. Avoid any steroids by mouth for any reason. Let me know if someone prescribes them to you 19. These instructions supersede anything else you read in the handbook, anything you watched in videos or classes or you were told by any other provider. If there is any conflict, you follow the above instructions and nothing else. Orders: Orders TSH reflex Free T4 Today E66.01 - Morbid (severe) obesity due to excess calories, Z68.36 - Body mass index [BMI] 36.0-36.9, adult Type and Screen Today E66.01 - Morbid (severe) obesity due to excess calories, Z68.36 - Body mass index [BMI] 36.0-36.9, adult Partial Thromboplastin Time Today E66.01 - Morbid (severe) obesity due to excess calories, Z68.36 - Body mass index [BMI] 36.0-36.9, adult C Reactive Protein Today E66.01 - Morbid (severe) obesity due to excess calories, Z68.36 - Body mass index [BMI] 36.0-36.9, adult Lipid Panel Today E66.01 - Morbid (severe) obesity due to excess calories, Z68.36 - Body mass index [BMI] 36.0-36.9, adult Hemoglobin A1c Today E66.01 - Morbid (severe) obesity due to excess calories, Z68.36 - Body mass index [BMI] 36.0-36.9, adult Insulin Today E66.01 - Morbid (severe) obesity due to excess calories, Z68.36 - Body mass index [BMI] 36.0-36.9, adult Comprehensive Met. Panel Today E66.01 - Morbid (severe) obesity due to excess calories, Z68.36 - Body mass index [BMI] 36.0-36.9, adult Prothrombin Time INR Today E66.01 - Morbid (severe) obesity due to excess calories, Z68.36 - Body mass index [BMI] 36.0-36.9, adult Complete Blood Count Auto Diff Today E66.01 - Morbid (severe) obesity due to excess calories, Z68.36 - Body mass index [BMI] 36.0-36.9, adult Medications: New pantoprazole 40 mg PO DAILY 90 tabs 0RF K21.9 - Gastro-esophageal reflux disease without esophagitis sucralfate 10 mL PO BID 600 mL 2RF K21.9 - Gastro-esophageal reflux disease without esophagitis polyethylene glycol 3350 (Miralax) Mix each packet with 8oz of water, Crystal light, or Gatorade zero, or Propel and do 7 packets on 08/09/23 and another 7 packets on 08/10/23 17 grams PO DAILY 14 ea 0RF Z01.818 - Encounter for other preprocedural examination ondansetron Only take one every 12 hours as needed if you have nausea 4 mg PO Q12H 20 tabs 0RF nausea and vomiting R11.0 - Nausea Telehealth Telehealth Location of provider rendering services: practice address Location of patient: address on file Patient Identification confirmed using: Name, : Yes Telehealth method: voice only Patient verbally consented to treatment: Yes Patient verbally consented to billing insurance company: Yes Patient informed of any privacy concerns related to visit: Yes Minutes spent on Phone/Video with Pt.: 20 Coding Level of Care Code Tele Est Pt Level 3 (11375) Diagnoses Class 2 severe obesity due to excess calories with serious comorbidity and body mass index (BMI) of 36.0 to 36.9 in adult E66.01; Z68.36 Obesity type: due to excess calories Obesity classification: adult class 2 (BMI 35 - 39.9) Serious obesity comorbidity presence: with serious comorbidity Body mass index: BMI 36.0-36.9 Time Spent (min) 20
[2023-07-31 14:21] VITALS: BMI 32.2
== END 2023-07-31 14:31 | disposition home or self-care (01) ==
LOC: HO.HBS 08:30
PROVIDERS: PCP Internal Medicine; Visit Provider Surgery
DX: E66.09 Other obesity due to excess calories (principal); Z68.32 Body mass index [BMI] 32.0-32.9, adult
CPT/HCPCS: 99499

== ENCOUNTER → 2023-07-31 08:30 | Outpatient (BNVA) | payer OTHER, SELFPAY | PROVIDERS: PCP Internal Medicine; Visit Provider Surgery ==

== ENCOUNTER 2023-08-04 08:07 | Outpatient (REF) | payer OTHER, MEDICAID, SELFPAY ==
[2023-08-04 08:37] LABS: MANUAL DIFF FLAG NO
[2023-08-04 09:06] LABS: Prothrombin Time 12.3 SEC (11.1-13.3)
[2023-08-04 09:08] LABS: Basophils Percent Auto 0.7 % (0-2); Eosinophils Absolute Auto 0.1 X10*3/uL (0.0-0.4); Eosinophils Percent Auto 1.6 % (0-4); Hemoglobin 13.2 g/dl (12.0-16.0); Imm Gran Abs Auto 0.01 X10*3/uL (0.00-0.03); Imm Gran Pct Auto 0.2 % (0.0-0.4); Lymphocytes Absolute Auto 0.9 X10*3/uL (1.2-4.9); Mean Corpuscular Hemoglobin 30.1 pg (27.0-33.0); Mean Corpuscular Volume 91.3 fL (80.0-98.0); Mean Platelet Volume 11.8 fL (9.4-12.3); Monocytes Absolute Auto 0.4 X10*3/uL (0.1-1.2); Monocytes Percent Auto 9.8 % (2-11); Neutrophils Absolute Auto 2.9 x10*3/uL (2.0-8.3); Neutrophils Percent Auto 66.7 % (45-73); Platelet Count 232 X10*3/uL (160-400); Red Blood Count 4.38 X10*6/uL (4.20-5.50); Red Cell Distribution Width 14.9 % (11.0-16.0); White Blood Count 4.4 X10*3/uL (4.8-10.8)
[2023-08-04 09:09] LABS: Estimated Average Glucose 103 mg/dL; Hemoglobin A1c % 5.2 % (<6.0); Partial Thromboplastin Time 31.4 SEC (26.0-36.8)
[2023-08-04 10:16] LABS: Alanine Aminotransferase 13 U/L (0-31); Albumin Level 4.1 g/dL (3.5-5.0); Alkaline Phosphatase 56 U/L (39-117); Anion Gap 12 (12-20); Aspartate Amino Transferase 15 U/L (5-31); Bilirubin Total 0.7 mg/dL (0.0-1.0); Blood Urea Nitrogen 16 mg/dL (9-16); C Reactive Protein 0.27 mg/dL (< or = 0.50); Calcium 9.5 mg/dL (8.4-10.2); Carbon Dioxide 25 mmol/L (22-29); Chloride 107 mmol/L (96-108); Cholesterol 150 mg/dL (<200); Estimated Glomerular Filt Rate > 60; Glucose Random 75 mg/dL (60-115); HDL Cholesterol 50 mg/dL (>40); Insulin 3 uU/mL (2-29); LDL Cholesterol Calculated 87 mg/dL (<100); Potassium 3.8 mmol/L (3.3-5.1); Sodium 140 mmol/L (135-145); TSH reflex Free T4 1.09 uIU/mL (0.32-4.0); Total Protein 6.9 g/dL (6.5-8.0); Triglycerides 67 mg/dL (<150)
== END 2023-08-04 08:08 | disposition home or self-care (01) ==
LOC: HO.LAB 08:07
PROVIDERS: Visit Provider Surgery
DX: E66.01 Morbid (severe) obesity due to excess calories (principal); Z68.36 Body mass index [BMI] 36.0-36.9, adult
CPT/HCPCS: 36415; 80053; 80061; 83036; 83525; 84443; 85025; 85610; 85730; 86140

== ENCOUNTER 2023-08-11 08:04 | Inpatient (IN) | payer OTHER, MEDICAID, SELFPAY ==
[2023-08-04 11:11] VITALS: BMI 31.3
--- NOTE | 2023-08-10 10:06 | HO.ANESPROP2 ---
Documented by User: Annie Sinha NP 08/10/23 10:07 HPI - Anesthesia Eval Consult details Narrative: 42yo F for Gastrectomy Sleeve,EGD,possible diaphragmatic hernia, possible ventral hernia,possible open, PMFSH Active Problems Active Problems: All Active Problems Generalized anxiety disorder (Acute) Vitamin D deficiency (Acute) BMI 36.0-36.9,adult (Acute) Obesity (Acute) Heavy menses (Acute) Sleep apnea with use of continuous positive airway pressure (CPAP) (Acute) Past Medical History Medical History Heavy menses Sleep apnea with use of continuous positive airway pressure (CPAP) Family History Family History Maternal Aunt Breast CA Surgical History Surgical History History of esophagogastroduodenoscopy (EGD) Hx of dilation and curettage History of wisdom tooth extraction Hx of breast biopsy Social History Social History Are you a primary career placement specialist to a significant other at home: No Do you presently have visiting nurse or other home services: No Alcohol intake: current Alcohol intake frequency: does not drink Comment: once a week Patient Tobacco Use Status: Former Tobacco user Quit Date: >10 years ago-smoked very occasionally Tobacco use type: Cigarette Use of substances other than those prescribed or required for medical reasons: No Have you been hit, kicked, punched, or otherwise hurt by someone within the past year? If so, by whom?: No Are you DNR?: No Advance Directives: No Advance Directives on File: No Recently lost weight without trying: No Eating poorly because of decreased appetite: No Nutrition Risks: No Nutritional Risk Patient : No FDLMP: 07/30/23 : No Poor oral hygiene: No Meds Allergies Allergy/AdvReac Type Severity Reaction Status Date / Time steri strips-adhesive Allergy Intermediate Blister Uncoded 08/04/23 11:09 Home Medications ?Medication ?Instructions ?Recorded ?Confirmed ?Last Taken ?Type CPAP (CPAP Machine/Device) 06/09/23 07/31/23 Unknown History clonazepam 1 mg tablet 1 mg PO DAILY PRN Anxiety 06/09/23 08/04/23 Unknown History multivitamin 1 tab PO DAILY 06/09/23 08/04/23 Unknown History tranexamic acid 650 mg tablet 1,300 mg PO TID 06/09/23 08/04/23 Unknown History Exam Height,Weight and Vital Signs: Height 5 ft 7 in Weight 90.718 kg Pertinent Lab Results Pertinent Lab Results: Laboratory Tests 08/04/23 08:25 Blood Type AB Positive Antibody Screen NEGATIVE Laboratory Tests 08/04/23 08:25 WBC 4.4 L Hgb 13.2 Hct 40.0 Plt Count 232 Sodium 140 Potassium 3.8 Chloride 107 Carbon Dioxide 25 BUN 16 Creatinine 0.76 Narrative Narrative: EKG 06/2023 Vent. Rate : 061 BPM Atrial Rate : 061 BPM P-R Int : 166 ms QRS Dur : 080 ms QT Int : 440 ms P-R-T Axes : 037 055 033 degrees QTc Int : 442 ms Normal sinus rhythm with sinus arrhythmia Normal ECG No previous ECGs available Assessment and Plan Assessment Anesthesia Assessment: Chart Reviewed Documented by User: Mayte Teague MD 08/11/23 08:56 HPI - Anesthesia Eval Consult details Narrative: 42yo F for EGD, Laparoscopic Sleeve Gastrectomy,possible diaphragmatic hernia, possible ventral hernia,possible open, PMFSH Past Medical History Medical History Heavy menses Sleep apnea with use of continuous positive airway pressure (CPAP) Family History Family History Maternal Aunt Breast CA Family history of problems with anesthesia: No Surgical History Surgical History History of esophagogastroduodenoscopy (EGD) Hx of dilation and curettage History of wisdom tooth extraction Hx of breast biopsy History of Problems with Anesthesia: No Social History Social History Are you a primary career placement specialist to a significant other at home: No Do you presently have visiting nurse or other home services: No Alcohol intake: current Alcohol intake frequency: does not drink Comment: once a week Patient Tobacco Use Status: Former Tobacco user Quit Date: >10 years ago-smoked very occasionally Tobacco use type: Cigarette Use of substances other than those prescribed or required for medical reasons: No Have you been hit, kicked, punched, or otherwise hurt by someone within the past year? If so, by whom?: No Are you DNR?: No Advance Directives: No Advance Directives on File: No Recently lost weight without trying: No Eating poorly because of decreased appetite: No Nutrition Risks: No Nutritional Risk Patient : No FDLMP: 07/30/23 : No Poor oral hygiene: No Meds Allergies Allergy/AdvReac Type Severity Reaction Status Date / Time steri strips-adhesive Allergy Intermediate Blister Uncoded 08/04/23 11:09 Home Medications ?Medication ?Instructions ?Recorded ?Confirmed ?Last Taken ?Type CPAP (CPAP Machine/Device) 06/09/23 07/31/23 Unknown History clonazepam 1 mg tablet 1 mg PO DAILY PRN Anxiety 06/09/23 08/04/23 Unknown History multivitamin 1 tab PO DAILY 06/09/23 08/04/23 Unknown History tranexamic acid 650 mg tablet 1,300 mg PO TID 06/09/23 08/04/23 Unknown History Exam Height,Weight and Vital Signs: Height 5 ft 7 in Weight 90.718 kg Vital Signs Temp Pulse Resp BP Pulse Ox O2 Del Method 08/11/23 08:44 97.1 F 68 16 116/63 99 Room Air Pertinent Lab Results Pertinent Lab Results: Laboratory Tests 08/04/23 08:25 Blood Type AB Positive Antibody Screen NEGATIVE Laboratory Tests 08/04/23 08:25 WBC 4.4 L Hgb 13.2 Hct 40.0 Plt Count 232 Sodium 140 Potassium 3.8 Chloride 107 Carbon Dioxide 25 BUN 16 Creatinine 0.76 Lab Results 08/04/23 08/11/23 Range/Units 08:25 08:05 Urine Test NEGATIVE (NEGATIVE) Blood Type AB Positive Antibody Screen NEGATIVE Airway Mallampati Class: I TM Dist: >3cm Neck ROM: Full Loose/Missing/Broken Teeth: No (Denies broken, loose, missing teeth) Heart: RRR Lungs: CTAB Assessment and Plan Assessment Anesthesia Assessment: Anesthesia Plan Discussed and Chart Reviewed Final Anesthetic Review Family History of Problems with Anesthesia: No History of Problems with Anesthesia: No NPO: Yes ASA Class: III Final Preanesthetic Review: No Changes in Pt Med Stat, Meds/Allgs Chart Reviewed, Consent Obtained/Reviewed and Anes Risks/Benef Reviewed Patient Risk: Intermediate Procedure Risk: Intermediate Assessment/Block/Sedation in SS: Assess/Block/Sedation- Anesthetic Plan Anesthetic Plan: GA Disposition: Standard PACU and Inp. Admit - Standard Bed
[2023-08-11] VITALS (19 sets, daily range): BP systolic 100–141; BP diastolic 58–79; PULSE 68–93; RESP 16–20; TEMP 36.2–37.3; O2SAT 95–100; BMI 33.7
--- OUTSIDE RECORDS SUMMARY | 2023-08-11 08:18 | XMS_ITS | Continuity of Care Document ---
Author Organization [facility]andra Address [address] [place] [address]- Care Team Providers Care Receptionist Scheduler Name Role Phone Lisa ADAMES ([facility] [place]), Francisca Hidalgo Primary Care Ph ysician Encounter [facility] Date(s): 11/11/19 - 12/11/19 [facility] [address] [place] [address]- [facility] Allergies, Adverse Reactions, Alerts Substance Reaction Severity Status NKA Active Immunizations Given and Recorded Vaccine Date Status Refusal Reason tetanus/diphtheria/pertussis, acel(Tdap) 09/28/19 Given Medications famotidine 10 mg oral tablet 1 tablet = 10 mg, By Mouth, 2 times a day, # 60 tablet, 5 Refills, Soft Stop, 10/04/19 7:53:00 EDT,[id number], 174, cm, 09/28/19 14:40:00 EDT, Height, 100.3, kg, 07/21/18 14:06:00 EDT, Dry Weight Start Date: 10/04/19 Stop Date: 04/01/20 Status: Ordered Multivitamins By Mouth, Daily, 0 Refills, Maintenance, 09/26/19 14:02:00 EDT Start Date: 09/26/19 Status: Ordered Tofranil 10 mg oral tablet See Instructions, 3 tablet By Mouth daily, 0 Refills, Maintenance, 05/03/18 11:29:39 EST Start Date: 05/03/18 Status: Ordered Problem List Condition Effective Dates Status Health Status Inform ant Anxiety(Confirmed) 1 Active BMI 31.0-31.9,adult(Confirmed) Active abnormality in (Confirmed) Active Injury of left elbow(Confirmed) 05/03/18 Active Advanced maternal age in multigravida(Confirmed) Active H/O hemorrhage(Confirmed) 2 Active state(Confirmed) Active UTI in (Confirmed) Active 1Per chart: Has therapist, takes medication. Patient aware of potential KELI of 2due to retained placenta Social History Social History Type Response Smoking Status Former smoker, quit more than 30 days ago; Other: quit >10 years ago; entered on: 09/26/19 Sex
--- OUTSIDE RECORDS SUMMARY | 2023-08-11 08:18 | XMS_ITS | Continuity of Care Document ---
Author Organization [facility] Address [address] [place] [address]- Care Team Providers Care Box Repairer Name Role Phone Priyank ADAMES, Michael Price Primary Care Physician Encounter [facility] Date(s): 12/16/22 - 01/15/[address] [address]- Attending Physician: Rebeca Garcia Admitting Physician: Rebeca Garcia Referring Physician: Rebeca Gacria Allergies, Adverse Reactions, Alerts No Known Allergies Immunizations Given and Recorded Vaccine Date Status Refusal Reason tetanus/diphtheria/pertussis, acel(Tdap) 09/28/19 Given Medications AutoCPAP 9-14 AutoCPAP 9-14, See Instructions, # 1 each, Refills 0, Tot. Refills 0, Maintenance, use overnight and naps from [employer], 10/09/22 15:06:00 EDT, Compound Start Date: 10/09/22 Status: Ordered Cymbalta 20 mg oral enteric coated capsule 2 capsule = 40 mg, By Mouth, Daily, 0 Refills, Maintenance, 07/10/22 11:24:00 EDT, Partial fill upon patient request if the prescription is for a schedule II opioid drug. Start Date: 07/10/22 Status: Ordered Problem List Condition Confirmation Course Effective Dates Status Health St atus Informant Anxiety 1 Confirmed Active BMI 31.0-31.9,adult Confirmed Active abnormality in Confirmed Active Injury of left elbow Confirmed 05/03/18 Active Advanced maternal age in multigravida Confirmed Active Obese class I Confirmed Active BENJAMIN (obstructive sleep apnea) Confirmed Active H/O hemorrhage 2 Confirmed Active state Confirmed Active UTI in Confirmed Active 1Per chart: Has therapist, takes medication. Patient aware of potential KELI of 2due to retained placenta Procedures Procedure Date Related Diagnosis Body Site Status D&C - Dilatation and curettage 2018 Completed 1D&C for retained placenta 3-4 days Vital Signs Most recent to oldest [Reference Range]: 1 Height 174 cm (09/26/19 1:45 PM) Social History Social History Type Response Smoking Status Never (less than 100 in lifetime); Tobacco user in household: No entered on: 05/12/18 Sex Patient Care team information Care Team Personnel Name: Michael Yost MD Position: [facility] Physician - Primary Care Member Role: PCP Address: Address: [address] [place] [address] [address] [place] [address]- Care Team Related Persons Name: SUSIE HUMPHREYS Address: [address] [place] [address] Name: JOHN HUMPHREYS Address: [employer] Address: [address] [place] [address] Name: TRISH MANDUJANO Address: [facility] [address] [place] [address]
--- OUTSIDE RECORDS SUMMARY | 2023-08-11 08:18 | XMS_ITS | Continuity of Care Document ---
Author Organization [facility] Address [address] [place] [id number]- Care Team Providers Care Customer Success Advocate Name Role Phone Priyank ADAMES, Michael Price Primary Care Physician Encounter [facility] Date(s): 07/07/23 - 08/06/[address] [address]- Allergies, Adverse Reactions, Alerts No Known Allergies Immunizations Given and Recorded Vaccine Date Status Refusal Reason tetanus/diphtheria/pertussis, acel(Tdap) 09/28/19 Given Medications AutoCPAP 9-14 AutoCPAP 9-14, See Instructions, # 1 each, Refills 0, Tot. Refills 0, Maintenance, use overnight and naps from [employer], 10/09/22 15:06:00 EDT, Compound Start Date: 10/09/22 Status: Ordered Clonazepam See Instructions, By Mouth 3 times a day, 0 Refills, Maintenance, 05/27/23 8:52:00 EST, Partial fill upon patient request if the prescription is for a schedule II opioid drug. Start Date: 05/27/23 Status: Ordered ferrous sulfate 325 mg oral tablet 1 tablet = 325 mg, By Mouth, 3 times a day, # 90 tablet, 0 Refills, Maintenance, 01/23/23 12:53:00 EDT, Tablet, [facility] #[id number], Partial fill upon patient request if the prescription is for a schedule II opioid drug., 174, cm, 01/21/23 14:10:00 EDT... Start Date: 01/23/23 Status: Ordered tranexamic acid 650 mg oral tablet 2 tablet = 1,300 mg, By Mouth, 3 times a day, for a maximum of 5 days during monthly menstruation, # 15 tablet, 3 Refills, Maintenance, 07/07/23 14:17:00 EDT, Tablet, [id number], Partial fillupon patient request if the prescription is for a s... Start Date: 07/07/23 Status: Ordered Problem List Condition Confirmation Course Effective Dates Status Health St atus Informant Abnormal uterine bleeding (AUB) Confirmed Active Anemia Confirmed Active Anxiety 1 Confirmed Active BMI 31.0-31.9,adult Confirmed Active Injury of left elbow Confirmed 05/03/18 Active Menorrhagia Confirmed Active BENJAMIN (obstructive sleep apnea) Confirmed Active Severe obesity (BMI 35.0-39.9) with comorbidity Confirmed Active 1Per chart: Has therapist, takes medication. Patient aware of potential KELI of Social History Social History Type Response Smoking Status Never (less than 100 in lifetime); Tobacco user in household: No entered on: 05/12/18 Sex Patient Care team information Care Team Personnel Name: Michael Yost MD Position: S Physician - Primary Care Member Role: PCP Address: Address: [address] [place] [address] [address] [place] [address]- Care Team Related Persons Name: SUSIE HUMPHREYS Address: [address] [place] [address] Name: JOHN HUMPHREYS Address: [employer] Address: [address] [place] [address] [place] Name: TRISH MANDUJANO
--- OUTSIDE RECORDS SUMMARY | 2023-08-11 08:18 | XMS_ITS | Continuity of Care Document ---
Author Organization [facility] Enoc Mendez [facility] Address [address] [place] [address], [address] [place] [address]- Care Team Providers Care Asparagus Buncher Name Role Phone Not on Staff, PCP Primary Care Physician Unavail able Encounter [facility] Date(s): 09/20/19 - 10/20/19 [facility] [address] [facility] [place] [address]- [facility] Attending Physician: Rebeca Garcia Admitting Physician: Rebeca Garcia Referring Physician: Rebeca Garcia Allergies, Adverse Reactions, Alerts Substance Reaction Severity [...] in multigravida(Confirmed) Active H/O hemorrhage(Confirmed) 2 Active UTI in (Confirmed) Active 1Per chart: Has therapist, takes medication. Patient aware of potential KELI of 2due to retained placenta Social History Social History Type Response Smoking Status Former smoker, quit more than 30 days ago; Other: quit >10 years ago; entered on: 09/26/19 Sex
--- OUTSIDE RECORDS SUMMARY | 2023-08-11 08:18 | XMS_ITS | Continuity of Care Document ---
Author Organization [facility] Address [address] [place] [address]- Care Team Providers Care Brush Trimming Machine Setter Name Role Phone Angel Henley DO Primary Care Physician Encounter [facility] Date(s): 12/25/21 - 01/24/[address] [address]- Attending Physician: Rebeca Garcia Admitting Physician: Rebeca Garcia Referring Physician: AdmtrRebeca Allergies, Adverse Reactions, Alerts No Known Allergies Immunizations Given and Recorded Vaccine Date Status Refusal Reason tetanus/diphtheria/pertussis, acel(Tdap) 09/28/19 Given Medications Multivitamins By Mouth, Daily, 0 Refills, Maintenance, 09/26/19 14:02:00 EDT Start Date: 09/26/19 Status: Ordered Tofranil 10 mg oral tablet See Instructions, 3 tablet By Mouth daily, 0 Refills, Maintenance, 05/03/18 11:29:39 EST Start Date: 05/03/18 Status: Ordered Problem List Condition Confirmation Course Effective Dates Status Health St atus Informant Anxiety 1 Confirmed Active BMI 31.0-31.9,adult Confirmed Active abnormality in Confirmed Active Injury of left elbow Confirmed 05/03/18 Active Advanced maternal age in multigravida Confirmed Active Obese class I Confirmed Active H/O hemorrhage 2 Confirmed Active [...] on: 05/12/18 Sex Patient Care team information Personnel Name: Angel Henley DO Address: Address: [address] [place] [address]
--- OUTSIDE RECORDS SUMMARY | 2023-08-11 08:18 | XMS_ITS | Continuity of Care Document ---
Author Organization [facility] Address [address] [place] [address]- Care Team Providers Care Electrician Master Name Role Phone Not on Staff, PCP Primary Care Physician Unavail able Encounter [facility] Date(s): 01/04/20 - 02/03/20 [facility] [address] [address]- [facility] Attending Physician: Rebeca Garcia Admitting Physician: AdmRebeca jacques Referring Physician: AdmtrRebeca Allergies, Adverse Reactions, Alerts Substance Reaction Severity [...]
--- OUTSIDE RECORDS SUMMARY | 2023-08-11 08:18 | XMS_ITS | Continuity of Care Document ---
Author Organization [facility] ter Address [address] [place] [address]- Care Team Providers Care Player Piano Technician Name Role Phone Priyank ADAMES, Michael Price Primary Care Physician Encounter [facility] Date(s): 02/05/23 - 02/06/[address] [address]- Encounter Diagnosis Shortness of breath(Final) - 02/06/23 Discharge Disposition: A-D/C AMA Attending Physician: Jonah Medina MD Admitting Physician: Jonah Medina MD Referring Physician: Not on Staff, Referring MD Allergies, Adverse Reactions, Alerts No Known Allergies [...] opioid drug. Start Date: 07/10/22 Status: Ordered ferrous sulfate 325 mg oral tablet 1 tablet = 325 mg, By Mouth, 3 times a day, # 90 tablet, 0 Refills, Maintenance, 01/23/23 12:53:00 EDT, Tablet, [facility]/pharmacy #[id number], Partial fill upon patient request if the prescription is for a schedule II opioid drug., 174, cm, 01/21/23 14:10:00 EDT... Start Date: 01/23/23 Status: Ordered Problem List Condition Confirmation Course Effective Dates Status Health St atus Informant Abnormal uterine bleeding (AUB) Confirmed Active Anemia Confirmed Active Anxiety 1 Confirmed Active BMI 31.0-31.9,adult Confirmed Active Injury of left elbow Confirmed 05/03/18 Active Obese class I Confirmed Active BENJAMIN (obstructive sleep apnea) Confirmed Active 1Per chart: Has therapist, takes medication. Patient aware of potential KELI of Vital Signs Most recent to oldest [Reference Range]: 1 2 3 Height 174 cm (02/05/23 5:31 PM) 174 cm (02/05/23 5:24 PM) Weight 97 kg (02/05/23 5:31 PM) 97 kg (02/05/23 5:24 PM) Oxygen Saturation [94-100 %] 100 % (02/05/23 10:54 PM) 100 % (02/05/23 8:53 PM) 97 % (02/05/23 5:27 PM) Pulse Rate [55-90 bpm] 68 bpm (02/05/23 10:54 PM) 88 bpm (02/05/23 8:53 PM) 94 bpm *H* (02/05/23 5:27 PM) Body Mass Index [18.5-24.99 kg/m2] 32.04 kg/m2 *>HHI* (02/05/23 5:24 PM) Blood Pressure [90-138/55-84 mm Hg] 116/63mm Hg (02/05/23 10:54 PM) 123/65mm Hg (02/05/23 8:53 PM) 125/78mm Hg (02/05/23 5:24 PM) Respiratory Rate [16-30 br/min] 18 br/min (02/05/23 5:24 PM) Temperature [96.8-100.4 DegF] 97.9 DegF (02/05/23 10:54 PM) 98.4 DegF (02/05/23 8:53 PM) 98.4 DegF (02/05/23 5:24 PM) Mode of Delivery (Oxygen) Room air (02/05/23 5:27 PM) Room air (02/05/23 5:24 PM) Blood pressure sites Arm, right (02/05/23 10:54 PM) Arm, left (02/05/23 8:53 PM) Arm, right (02/05/23 5:24 PM) Temperature Route Oral (02/05/23 10:54 PM) Oral (02/05/23 8:53 PM) Oral (02/05/23 5:24 PM) Dry Weight 97 kg (02/05/23 5:31 PM) 97 kg (02/05/23 5:24 PM) Social History Social History Type Response Smoking Status Never (less than 100 in lifetime); Tobacco user in household: No entered on: 05/12/18 Sex EKG study * Event Display: EKG Authored Date: * Event Display: ECG 12-Lead Authored Date: [id number] Please click on pdf link to open report * Event Display: ECG 12-Lead Authored Date: [id number] Ventricular Rate: 71 BPM Atrial Rate: 71 BPM P-R Interval: 144 ms QRS Duration: 72 ms Q-T Interval: 410 ms QTC Calculation(Bazett): 445 ms P Kinta: 28 degrees R Kinta: 49 degrees T Kinta: 36 degrees Normal sinus rhythm with sinus arrhythmia Normal ECG When compared with ECG of 21-JUL-2018 11:49, T wave amplitude has increased in Anterior leads Confirmed by CHASE QUINTANILLA MD ([id number]) on 02/06/2023 7:59:40 AM [place]: CHASE QUINTANILLA MD Patient Care team information Care Team Personnel Name: Michael Yost MD Position: [facility] Physician - Primary Care Member Role: PCP Address: Address: [address] [place] [address] & [place] [address]- Name: Jonah Medina MD Position: [facility] ED Medicine MD Member Role: ED Attending Physician Address: Address: [address] [place] [address] [place] [address]- Care Team Related Persons Name: SUSIE HUMPHREYS Address: home [address] [place] [address] Name: JOHN HUMPHREYS Address: [employer] Address: [address] [place] [address] Name: TRISH MANDUJANO Address: home [address] [place] [address]
--- OUTSIDE RECORDS SUMMARY | 2023-08-11 08:18 | XMS_ITS | Continuity of Care Document ---
Author Organization [facility] Address [address] [place] [address]- Care Team Providers Care Sample Preparation Supervisor Name Role Phone Lisa ADAMES ([facility])Francisca Primary Care ysician Encounter [facility] Date(s): 11/02/19 - 12/24/19 [facility] [address] [address]- [facility] Attending Physician: Not on Staff, Attending MD Referring Physician: Lisa ADAMES ([facility])Francisca Allergies, Adverse Reactions, Alerts Substance Reaction Severity [...]
--- OUTSIDE RECORDS SUMMARY | 2023-08-11 08:18 | XMS_ITS | Continuity of Care Document ---
Author Organization [facility] Address [address] [place] [address]- Care Team Providers Care Hat Marker Name Role Phone Priyank ADAMES, Michael Price Primary Care Physician Encounter [facility] Date(s): 06/17/23 - 07/17/[address] [address]- Allergies, Adverse Reactions, Alerts No Known Allergies [...] 0 Refills, Maintenance, 01/23/23 12:53:00 EDT, Tablet, [facility]/pharmacy #[id number], Partial fill upon patient request if the prescription is for a schedule II opioid drug., 174, cm, 01/21/23 14:10:00 EDT... Start Date: 01/23/23 Status: Ordered tranexamic acid 650 mg oral tablet 2 tablet = 1,300 mg, By Mouth, 3 times a day, for a maximum of 5 days during monthly menstruation, # 15 tablet, 3 Refills, Maintenance, 07/07/23 14:17:00 EDT, Tablet, [id number], Partial fillupon patient request if the prescription [...] Primary Care Member Role: PCP Address: Address: [address] [place] [address] [address] [place] [address]- Care Team Related Persons Name: SUSIE HUMPHREYS Address: [address] [place] [address] Name: JOHN HUMPHREYS Address: [employer] Address: home [address] [place] [address] [place] Name: TRISH MANDUJANO
--- OUTSIDE RECORDS SUMMARY | 2023-08-11 08:18 | XMS_ITS | Continuity of Care Document ---
Author Organization [facility] Address [address] [place] [address]- Care Team Providers Care Spray Gun Operator Name Role Phone Priyank ADAMES, Michael Price Primary Care Physician [place] [facility] [place](s[place] 01/29/23 - 02/28/[address] [address]- Allergies, Adverse Reactions, Alerts No Known Allergies [...] 0 Refills, Maintenance, 01/23/23 12:53:00 EDT, Tablet, [id number], Partial fill upon patient request if the [...] elbow Confirmed 05/03/18 Active Menorrhagia Confirmed Active Obese class I Confirmed Active BENJAMIN (obstructive sleep apnea) Confirmed Active 1Per chart: Has therapist, takes medication. Patient aware of potential KELI of Social History Social History Type Response Smoking Status Never (less than 100 in lifetime); Tobacco user in household: No entered on: 05/12/18 Sex Patient Care team information Care Team Personnel Name: Michael Yost MD Position: [facility] Physician - Primary Care Member Role: PCP Address: Address: [address] [place] [address] & [place] [address]- Care Team Related Persons Name: SUSIE HUMPHREYS Address: home [address] [place] [address] Name: JOHN HUMPHREYS Address: [employer] Address: home [address] [place] [address] Name: TRISH MANDUJANO Address: home [address] [place] [address]
--- OUTSIDE RECORDS SUMMARY | 2023-08-11 08:18 | XMS_ITS | Continuity of Care Document ---
Author Organization [facility] Address [address] [place] [address]- Care Team Providers Care Sales Advisory Manager Name Role Phone Not on Staff, PCP Primary Care Physician Unavail able Encounter [facility] Date(s): 07/10/22 - 08/09/22 [facility] [address] [place] [address] Attending Physician: Rebeca Garcia Admitting Physician: Rebeca Garcia Referring Physician: Rebeca Garcia Allergies, Adverse Reactions, Alerts No Known Allergies Immunizations Given and Recorded Vaccine Date Status Refusal Reason tetanus/diphtheria/pertussis, acel(Tdap) 09/28/19 Given Medications AutoCPAP 11-14 AutoCPAP 11-14, See Instructions, # 1 each, Refills 0, Tot. Refills 0, Maintenance, use overnight and naps from [employer], 07/10/22 11:25:00 EDT, Compound Start Date: 07/10/22 Status: Ordered Cymbalta 20 mg oral enteric [...] Care team information Care Team Personnel Name: Not on Staff, PCP Position: S Physician (General Medicine) Member Role: PCP Care Team Related Persons Name: SUSIE HUMPHREYS Address: [address] [place] [address] Name: JOHN HUMPHREYS Address: [employer] Address: [address] [place] [address] Name: TRISH MANDUJANO Address: home [address] [place] [address]
--- OUTSIDE RECORDS SUMMARY | 2023-08-11 08:18 | XMS_ITS | Continuity of Care Document ---
Author Organization [facility] Address [address] [place] [address]- Care Team Providers Care Electrical Prospecting Observer Name Role Phone Priyank ADAMES, Michael Price Primary Care Physician Encounter [place] Date(s): 01/23/23 - 02/22/[address] [address]- Allergies, Adverse Reactions, Alerts No Known Allergies Immunizations Given and Recorded Vaccine Date Status Refusal Reason tetanus/diphtheria/pertussis, acel(Tdap) 09/28/19 Given Medications AutoCPAP 9-14 AutoCPAP 9-14, See Instructions, # 1 each, Refills 0, Tot. Refills 0, Maintenance, use overnight and naps from [employer], 10/09/22 15:06:00 EDT, Compound Start Date: 10/09/22 Status: Ordered cefpodoxime 100 mg oral tablet 1 tablet = 100 mg, By Mouth, Every 12 hours, for 7 days, # 14 tablet, 0 Refills, Acute 02/28/23 20:38:00 EST, 02/21/23 20:38:00 EDT, Tablet, [facility]/pharmacy #[id number], Partial fill upon patient request if the prescription is for a schedule II opioid drug., 1... Start Date: 02/21/23 Stop Date: 02/28/23 Status: Ordered Cymbalta 20 mg oral enteric [...] Refills, Maintenance, 01/23/23 12:53:00 EDT, Tablet, [id number], Partial fill upon patient request if the [...] Team Personnel Name: Michael Yost MD Position: [facility] Physician - Primary Care Member Role: PCP Address: Address: [address] [place] [address] [address] [place] [address]- Care Team Related Persons Name: SUSIE HUMPHREYS Address: [address] [place] [address] Name: JOHN HUMPHREYS Address: [employer] Address: home [address] [place] [address] [place] Name: TRISH MANDUJANO Address: [address] [place] [address]
--- OUTSIDE RECORDS SUMMARY | 2023-08-11 08:19 | XMS_ITS | Continuity of Care Document ---
Author Organization [facility] ter Address [address] [place] [address]- Care Team Providers Care Dedicated Regional Driver Name Role Phone Priyank ADAMES, Michael Price Primary Care Physician Encounter [facility] Date(s): 02/05/23 - 02/12/[address] [address]- Attending Physician: Ezequiel ADAMES, Ivette Vick Allergies, Adverse Reactions, Alerts No Known Allergies [...] 0 Refills, Maintenance, 01/23/23 12:53:00 EDT, Tablet, [facility]/pharmacy #[id number], Partial fill upon patient request if the prescription is for a schedule II opioid drug., 174, cm, 01/21/23 14:10:00 EDT... Start Date: 01/23/23 Status: Ordered metronidazole topical 0.75% gel with applicator 1 applicator, Vaginally, Daily at bedtime, for 5 days, # 70 Gm, 0 Refills, Acute 02/14/23 13:15:00 EDT, 02/09/23 13:15:00 EDT, Gel, [id number], Partial fill upon patient request if the prescription is for a schedule II opioid drug., 1 applicat... Start Date: 02/09/23 Stop Date: 02/14/23 Status: Ordered Problem List Condition Confirmation Course [...] Most recent to oldest [Reference Range]: 1 Weight 97.4 kg (02/05/23 5:02 PM) Oxygen Saturation [94-100 %] 100 % (02/05/23 5:02 PM) Pulse Rate [55-90 bpm] 85 bpm (02/05/23 5:02 PM) Blood Pressure [90-138/55-84 mm Hg] 114/ 49mm Hg (02/05/23 5:02 PM) Respiratory Rate [16-30 br/min] 18 br/mi n (02/05/23 5:02 PM) Temperature [96.8-100.4 DegF] 98.5 DegF (02/05/23 5:02 PM) Mode of Delivery (Oxygen) Room air (02/05/23 5:02 PM) Blood pressure sites Arm, right (02/05/23 5:02 PM) Temperature Route Oral (02/05/23 5:02 PM) Dry Weight 97.4 kg (02/05/23 5:02 PM) Weight Obtained Via Standing scale (02/05/23 5:02 PM) Dry Weight Obtained Via Standing scale (02/05/23 5:02 PM) Social History Social History Type Response Smoking Status Never (less than 100 in lifetime); Tobacco user in household: No entered on: 05/12/18 Sex Patient Care team information Care Team Personnel Name: Michael Yost MD Position: S Physician - Primary Care Member Role: PCP Address: Address: [address] [place] [address] Violeta Earl, [place] [address]- Care Team Related Persons Name: SUSIE HUMPHREYS Address: [address] [place] [address] Name: JOHN HUMPHREYS Address: [employer] Address: [address] [place] [address] Name: TRISH MANDUJANO Address: home [address] [place] [address]
--- OUTSIDE RECORDS SUMMARY | 2023-08-11 08:19 | XMS_ITS | Continuity of Care Document ---
Author Organization [facility] Address [address] [place] [address]- Care Team Providers Care Fixing [place] Name Role Phone Priyank ADAMES, Michael Price Primary Care Physician En[place] [facility] Date(s): 06/19/23 - 07/19/[address] [address]- Allergies, Adverse Reactions, Alerts No Known Allergies [...] 0 Refills, Maintenance, 01/23/23 12:53:00 EDT, Tablet, [facility]/pharmacy #[id number], Partial fill upon patient request if the prescription is for a schedule II opioid drug., 174, cm, 01/21/23 14:10:00 EDT... Start Date: 01/23/23 Status: Ordered tranexamic acid 650 mg oral tablet 2 tablet = 1,300 mg, By Mouth, 3 times a day, for a maximum of 5 days during monthly menstruation, # 15 tablet, 3 Refills, Maintenance, 07/07/23 14:17:00 EDT, Tablet, [id number], Partial fillupon patient request if the prescription [...] team information Care Team Personnel Name: Michael oYst MD Position: S Physician - Primary Care Member Role: PCP Address: Address: [address] [place] [address] [address] [place] [address]- Care Team Related Persons Name: SUSIE HUMPHREYS Address: [address] [place] [address] Name: JOHN UHMPHREYS Address: [employer] Address: home [address] [place] [address] [place] Name: TRISH MANDUJANO
--- OUTSIDE RECORDS SUMMARY | 2023-08-11 08:19 | XMS_ITS | Continuity of Care Document ---
Author Organization [facility] Address [address] [place] [address]- Care Team Providers Care Interpreter Translator Name Role Phone Michael Yost MD Primary Care Physician En[facility] Date(s): 06/19/23 - 07/19/23 [facility] [address] [place] [address]- [place] Allergies, Adverse Reactions, Alerts No Known Allergies [...] 0 Refills, Maintenance, 01/23/23 12:53:00 EDT, Tablet, [facility]/pharmacy #[id number], Partial fill upon patient request if the prescription is for a schedule II opioid drug., 174, cm, 01/21/23 14:10:00 EDT... Start Date: 01/23/23 Status: Ordered tranexamic acid 650 mg oral tablet 2 tablet = 1,300 mg, By Mouth, 3 times a day, for a maximum of 5 days during monthly menstruation, # 15 tablet, 3 Refills, Maintenance, 07/07/23 14:17:00 EDT, Tablet, [id number], Partial fillupon patient request if the prescription [...] Primary Care Member Role: PCP Address: Address: [address] [place] [address] & [place] [address]- Care Team Related Persons Name: SUSIE HUMPHREYS Address: [address] [place] [address] Name: JOHN HUMPHREYS Address: [employer] Address: home [address] [place] [address] Name: TRISH MANDUJANO
--- OUTSIDE RECORDS SUMMARY | 2023-08-11 08:19 | XMS_ITS | Continuity of Care Document ---
Author Organization [facility] Address [address] [place] [address]- Care Team Providers Care Physicians And Surgeons Name Role Phone Priyank ADAMES, Michael Price Primary Care Physician En[place] [facility] Date(s): 04/14/23 - 05/14/[address] [address]- Allergies, Adverse Reactions, Alerts No Known Allergies [...] 0 Refills, Maintenance, 01/23/23 12:53:00 EDT, Tablet, [facility]/pharmacy #[id number], Partial fill upon patient request if the prescription is for a schedule II opioid drug., 174, cm, 01/21/23 14:10:00 EDT... Start Date: 01/23/23 Status: Ordered tranexamic acid 650 mg oral tablet 2 tablet = 1,300 mg, By Mouth, 3 times a day, for a maximum of 5 days during monthly menstruation, # 15 tablet, 3 Refills, Maintenance, 04/14/23 17:48:00 EST, Tablet, [id number], Partial fillupon patient request if the prescription is for a s... Start Date: 04/14/23 Status: Ordered Problem List Condition Confirmation Course [...] Primary Care Member Role: PCP Address: Address: [address] [place] [address] [address] [place] [address]- Care Team Related Persons Name: SUSIE HUMPHREYS Address: [address] [place] [address] Name: JOHN HUMPHREYS Address: [employer] Address: [address] [place] [address] [place] Name: TRISH MANDUJANO Address: [place] [address] [place] [address]
--- OUTSIDE RECORDS SUMMARY | 2023-08-11 08:19 | XMS_ITS | Continuity of Care Document ---
Author Organization [facility] Address [address] [facility] [address] [place] [address]- Care Team Providers Care Family Nurse Name Role Phone Lisa ADAMES ([facility]), Francisca Hidalgo Primary Care Ph ysician Encounter [facility] Date(s): 11/14/19 - 12/14/19 [facility] [address] [facility] [address] [place] [address]- [facility] Attending Physician: AdmRebeca jacques Admitting Physician: AdmtrRebeca Referring Physician: Admtr, Ar8 Allergies, Adverse Reactions, Alerts Substance Reaction Severity [...]
--- OUTSIDE RECORDS SUMMARY | 2023-08-11 08:19 | XMS_ITS | Continuity of Care Document ---
Author Organization [facility] Address [address] [place] [address]- Care Team Providers Care Director Of Outpatient Services Name Role Phone Angel Henley DO Primary Care Physician [place] [facility] [place] 12/16/21 - 01/24/[address] [address]- [place] Attending Physician: Not on Staff, Attending MD Allergies, Adverse Reactions, Alerts No Known [...] Personnel Name: Angel Henley DO Address: Address: [address] [place] [address]
--- OUTSIDE RECORDS SUMMARY | 2023-08-11 08:19 | XMS_ITS | Continuity of Care Document ---
Author Organization [facility] [employer] [facility] Address [address] [facility], [address] [place] [address]- Care Team Providers Care Teacher Drama Name Role Phone Angel Henley DO Primary Care Physician Encounter [facility] Date(s): 12/24/21 - 01/23/22 [facility] [address] [facility], [address]th [place] [address]- [place] Allergies, Adverse Reactions, Alerts No Known Allergies [...] Personnel Name: Angel Henley DO Address: Address: [address] [place] [address]-
--- OUTSIDE RECORDS SUMMARY | 2023-08-11 08:19 | XMS_ITS | Continuity of Care Document ---
Author Organization [facility] Address [address] [place] [address]- Care Team Providers Care [place] [facility]inary Name Role Phone Priyank ADAMES, Michael Price Primary Care Physician Encounter [facility] Date(s): 04/14/23 - 05/14/[address] [address]- Allergies, Adverse Reactions, Alerts No Known Allergies [...] 0 Refills, Maintenance, 01/23/23 12:53:00 EDT, Tablet, [facility]/pharmacy #[id number], Partial fill upon patient request if the prescription is for a schedule II opioid drug., 174, cm, 01/21/23 14:10:00 EDT... Start Date: 01/23/23 Status: Ordered tranexamic acid 650 mg oral tablet 2 tablet = 1,300 mg, By Mouth, 3 times a day, for a maximum of 5 days during monthly menstruation, # 15 tablet, 3 Refills, Maintenance, 04/14/23 17:48:00 EST, Tablet, [id number], Partial fillupon patient request if the prescription [...] Primary Care Member Role: PCP Address: Address: [address] [place] [address] [address] [place] [address]- Care Team Related Persons Name: SUSIE HUMPHREYS Address: [address] [place] [address] Name: JOHN HUMPHREYS Address: [employer] Address: [address] [place] [address] [place] Name: TRISH MANDUJANO Address: [place] [address] [place] [address]
--- OUTSIDE RECORDS SUMMARY | 2023-08-11 08:19 | XMS_ITS | Continuity of Care Document ---
Author Organization [facility] Address [address] [place] [address]- Care Team Providers Care Miller Kiln Dried Salt Name Role Phone Priyank ADAMES, Michael Price Primary Care Physician Encounter [facility] Date(s): 02/09/23 - 03/11/[address] [address]- Allergies, Adverse Reactions, Alerts No Known Allergies [...] Refills, Maintenance, 01/23/23 12:53:00 EDT, Tablet, [id number], Partial fill upon patient request if the [...] Team Personnel Name: Michael Yost MD Position: [facility] Physician - Primary Care Member Role: PCP Address: Address: [address] [place] [address] & [place] [address]- Care Team Related Persons Name: SUSIE HUMPHREYS Address: [address] [place] [address] Name: JOHN HUMPHREYS Address: [employer] Address: [address] [place] [address] Name: TRISH MANDUJANO Address: [address] [place] [address]
--- OUTSIDE RECORDS SUMMARY | 2023-08-11 08:19 | XMS_ITS | Continuity of Care Document ---
Author Organization [facility] ter Address [address] [place] [address]- Care Team Providers Care Bone Char Kiln Operator Name Role Phone Angel Henley DO Primary Care Physician Encounter [facility] [place] Date(s): 12/10/21 - 01/23/[address] [address]- [place] Attending Physician: Scareltt Anderson CNM Admitting Physician: Scarlett Anderson CNM Referring Physician: Scarlett Anderson CNM Allergies, Adverse Reactions, Alerts No Known Allergies [...] Personnel Name: Angel Henley DO Address: Address: [address] [place] [address]- [place]
--- OUTSIDE RECORDS SUMMARY | 2023-08-11 08:19 | XMS_ITS | Continuity of Care Document ---
Author Organization [facility] ter Address [address] [place] [address]- Care Team Providers Care Intelligence Intern Name Role Phone Lisa ADAMES ([facility] [place]), Francisca Hidalgo Primary Care Ph ysician En[place] [facility] [place] Date(s): 11/22/19 - 11/24/[address] [address]- [facility] Discharge Disposition: A-D/C Home Attending Physician: Nereyda Chavez MD Admitting Physician: Nereyda Chavez MD Referring Physician: Nereyda Chavez MD Allergies, Adverse Reactions, Alerts Substance Reaction Severity [...] potential KELI of 2due to retained placenta Vital Signs Most recent to oldest [Reference Range]: 1 2 3 Height 174 cm (11/24/19 8:50 AM) 174 cm (11/24/19 12:00 AM) 174 cm (11/23/19 5:06 PM) Weight 113.6 kg (11/23/19 1:00 AM) Oxygen Saturation [94-100 %] 98 % (11/24/19 12:00 AM) 98 % (11/23/19 6:10 AM) 89 % *L* (11/23/19 2:45 AM) Pulse Rate [55-90 bpm] 92 bpm *H* (11/24/19 8:50 AM) 80 bpm (11/24/19 12:00 AM) 79 bpm (11/23/19 5:06 PM) Body Mass Index [18.5-24.99] 37.52 *>HHI* (11/23/19 1:00 AM) Blood Pressure [90-138/55-84 mm Hg] 112/67mm Hg (11/24/19 8:50 AM) 127/64mm Hg (11/24/19 12:00 AM) 120/71mm Hg (11/23/19 5:06 PM) Respiratory Rate [16-30 br/min] 18 br/min (11/24/19 8:50 AM) 18 br/min (11/24/19 12:00 AM) 18 br/min (11/23/19 5:06 PM) Temperature [96.8-100.4 DegF] 98.1 DegF (11/24/19 8:50 AM) 97.9 DegF (11/24/19 12:00 AM) 98.3 DegF (11/23/19 5:06 PM) Mode of Delivery (Oxygen) Room air (11/24/19 12:00 AM) Room air (11/23/19 6:10 AM) Room air (11/22/19 9:01 PM) Blood pressure sites Arm, left (11/24/19 8:50 AM) Arm, left (11/23/19 3:15 AM) Arm, left (11/23/19 3:00 AM) Temperature Route Oral (11/24/19 8:50 AM) Oral (11/24/19 12:00 AM) Oral (11/23/19 5:06 PM) Dry Weight 113.6 kg (11/23/19 1:00 AM) Social History Social History Type Response Smoking Status Former smoker, quit more than 30 days ago; Other: quit >10 years ago; entered on: 09/26/19 Sex
--- OUTSIDE RECORDS SUMMARY | 2023-08-11 08:19 | XMS_ITS | Continuity of Care Document ---
Author Organization [facility] Address [address] [place] [address]- Care Team Providers Care Boiler Blower Name Role Phone Priyank ADAMES, Michael Price Primary Care Physician Encounter [facility] [place] Date(s): 06/22/23 - 07/22/[address] [address]- Allergies, Adverse Reactions, Alerts No Known Allergies [...] 0 Refills, Maintenance, 01/23/23 12:53:00 EDT, Tablet, [facility]/pharmacy #[id number], Partial fill upon patient request if the prescription is for a schedule II opioid drug., 174, cm, 01/21/23 14:10:00 EDT... Start Date: 01/23/23 Status: Ordered tranexamic acid 650 mg oral tablet 2 tablet = 1,300 mg, By Mouth, 3 times a day, for a maximum of 5 days during monthly menstruation, # 15 tablet, 3 Refills, Maintenance, 07/07/23 14:17:00 EDT, Tablet, [id number], Partial fillupon patient request if the prescription [...] Primary Care Member Role: PCP Address: Address: [address] [place] [address] [address] [place] [address]- Care Team Related Persons Name: SUSIE HUMPHREYS Address: [address] [place] [address] Name: JOHN HUMPHREYS Address: AMER[employer] Address: [address] [place] [address] [place] Name: TRISH MANDUJANO
--- OUTSIDE RECORDS SUMMARY | 2023-08-11 08:19 | XMS_ITS | Continuity of Care Document ---
Author Organization [facility] Address [address] [place] [address]- Care Team Providers Care Medical Office Representative Name Role Phone Priyank ADAMES, Michael Price Primary Care Physician Encounter [facility] Date(s): 02/03/23 - 03/05/[address] [address]- Allergies, Adverse Reactions, Alerts No Known Allergies [...] Refills, Maintenance, 01/23/23 12:53:00 EDT, Tablet, [id number], Partial fill upon patient request if the [...] Team Personnel Name: Michael Yost MD Position: [facility] Physician - Primary Care Member Role: PCP Address: Address: [address] [place] [address] & [place] [address]- Care Team Related Persons Name: SUSIE HUMPHREYS Address: home [address] [place] [address] Name: JOHN HUMPHREYS Address: AMER[employer] Address: [address] [place] [address] Name: TRISH MANDUJANO Address: home [address] [place] [address]
--- OUTSIDE RECORDS SUMMARY | 2023-08-11 08:19 | XMS_ITS | Continuity of Care Document ---
Author Organization [facility] Address [address] [place] [address]- Care Team Providers Care Rn Ent Name Role Phone Priyank ADAMES, Michael Price Primary Care Physician [place] [facility] [place] 06/17/23 - 07/17/[address] [address]- Allergies, Adverse Reactions, Alerts No Known Allergies [...] 0 Refills, Maintenance, 01/23/23 12:53:00 EDT, Tablet, [facility]/pharmacy #[id number], Partial fill upon patient request if the prescription is for a schedule II opioid drug., 174, cm, 01/21/23 14:10:00 EDT... Start Date: 01/23/23 Status: Ordered tranexamic acid 650 mg oral tablet 2 tablet = 1,300 mg, By Mouth, 3 times a day, for a maximum of 5 days during monthly menstruation, # 15 tablet, 3 Refills, Maintenance, 07/07/23 14:17:00 EDT, Tablet, [id number], Partial fillupon patient request if the prescription [...] Primary Care Member Role: PCP Address: Address: [address] [place] [address] [address] [place] [address]- Care Team Related Persons Name: SUSIE HUMPHREYS Address: [address] [place] [address] Name: JOHN HUMPHREYS Address: AMER[employer] Address: [address] [place] [address] [place] Name: TRISH MANDUJANO
--- OUTSIDE RECORDS SUMMARY | 2023-08-11 08:19 | XMS_ITS | Continuity of Care Document ---
Author Organization [facility] Address [address] [place] [address]- Care Team Providers Care Cutting Tool Sharpener Name Role Phone Priyank ADAMES, Michael Price Primary Care Physician En[place] [facility] [place] Date(s): 06/26/23 - 07/26/[address] [address]- Allergies, Adverse Reactions, Alerts No Known Allergies [...] 0 Refills, Maintenance, 01/23/23 12:53:00 EDT, Tablet, [facility]/pharmacy #[id number], Partial fill upon patient request if the prescription is for a schedule II opioid drug., 174, cm, 01/21/23 14:10:00 EDT... Start Date: 01/23/23 Status: Ordered tranexamic acid 650 mg oral tablet 2 tablet = 1,300 mg, By Mouth, 3 times a day, for a maximum of 5 days during monthly menstruation, # 15 tablet, 3 Refills, Maintenance, 07/07/23 14:17:00 EDT, Tablet, [id number], Partial fillupon patient request if the prescription [...] Primary Care Member Role: PCP Address: Address: [address] [place] [address] [address] [place] [address]- Care Team Related Persons Name: SUSIE HUMPHREYS Address: [address] [place] [address] Name: JOHN HUMPHREYS Address: AMER[employer] Address: [address] [place] [address] [place] Name: TRISH MANDUJANO
--- OUTSIDE RECORDS SUMMARY | 2023-08-11 08:19 | XMS_ITS | Continuity of Care Document ---
Author Organization [facility] Address [address], 4t [place] [address]- Care Team Providers Care Hospice Administrator Name Role Phone Angel Henley DO Primary Care Physician [phone] Encounter [facility] [place] Date(s): 01/07/22 - 02[facility]06/[facility] [address], 4th [place] [address]- us Allergies, Adverse Reactions, Alerts [...] Personnel Name: Angel Henley DO Address: Address: [address] [place] [address]-
--- OUTSIDE RECORDS SUMMARY | 2023-08-11 08:19 | XMS_ITS | Continuity of Care Document ---
Author Organization [facility] Address [address] [place] [address]- Care Team Providers Care Rat Trapper Name Role Phone Lisa ADAMES ([facility] [place]), Francisca Hidalgo Primary Care Ph ysician Encounter [facility] [place] Date(s): 10/27/19 - 11/26/19 [facility] [address] [address]- [facility] Allergies, Adverse Reactions, Alerts Substance Reaction Severity [...]
--- OUTSIDE RECORDS SUMMARY | 2023-08-11 08:19 | XMS_ITS | Continuity of Care Document ---
Author Organization [facility] ter Address [address] [place] [address]- Care Team Providers Care Acid Retort Operator Name Role Phone Michael Yost MD Primary Care Physician Encounter [facility] [place] Date(s): 09/25/22 - 01/15/[address] [address]- Attending Physician: Scarlett Anderson CNM Admitting Physician: Scarlett Anderson CNM [...] Team Personnel Name: Michael Yost MD Position: [facility] Physician - Primary Care Member Role: PCP Address: Address: [address] [place] [address] & [place] [address]- Care Team Related Persons Name: SUSIE HUMPHREYS Address: [address] [place] [address] Name: JOHN HUMPHREYS Address: AMER[employer] Address: [address] [place] [address] Name: TRISH MANDUJANO Address: home [address] [place] [address]
--- OUTSIDE RECORDS SUMMARY | 2023-08-11 08:19 | XMS_ITS | Continuity of Care Document ---
Author Organization [facility] Address [address] [place] [address]- Care Team Providers Care Environmental Health And Safety Intern Name Role Phone Priyank ADAMES, Michael Price Primary Care Physician Encounter [facility] [place] Date(s): 01/30/23 - 07/03/23 [facility] [address] [place] [address]- Discharge Disposition: A-D/C Home Attending Physician: Ej Steiner MD Admitting Physician: Geneva Richey MD, Ej Merlos Referring Physician: Michael Yost MD Allergies, Adverse Reactions, Alerts No Known [...] 0 Refills, Maintenance, 01/23/23 12:53:00 EDT, Tablet, [facility]/pharmacy #[id number], Partial fill upon patient request if the prescription is for a schedule II opioid drug., 174, cm, 01/21/23 14:10:00 EDT... Start Date: 01/23/23 Status: Ordered tranexamic acid 650 mg oral tablet 2 tablet = 1,300 mg, By Mouth, 3 times a day, for a maximum of 5 days during monthly menstruation, # 15 tablet, 3 Refills, Maintenance, 04/14/23 17:48:00 EST, Tablet, [id number], Partial fillupon patient request if the prescription [...] Care team information Care Team Personnel Name: Priyank ADAMES, Michael Price Position: [facility] Physician - Primary Care Member Role: PCP Address: Address: [address] [place], [place] [address]chuck & [place] [address]- Name: Geneva Richey MD, Ej Gaurang Position: [facility] Physician - Oncology Med Service: Hematology & Oncology Member Role: Admitting Physician Address: Address: [address] [place] [address] Hem/[place] [address]- Care Team Related Persons Name: SUSIE HUMPHREYS Address: [address] [place] [address] Name: JOHN HUMPHREYS Address: AMER[employer] Address: [address] [place] [address] Name: TRISH MANDUJANO
--- OUTSIDE RECORDS SUMMARY | 2023-08-11 08:19 | XMS_ITS | Continuity of Care Document ---
Author Organization [facility] Address [address] [place] [address]- Care Team Providers Care Deputy Assessor Name Role Phone Priyank ADAMES, Michael Price Primary Care Physician Encounter [facility] [place] Date(s): 04/29/23 - 06/07/[address] [address]- Attending Physician: Not on Staff, Attending MD [...] opioid drug. Start Date: 05/27/23 Status: Ordered Cymbalta 20 mg oral enteric [...] Refills, Maintenance, 01/23/23 12:53:00 EDT, Tablet, [id number], Partial fill upon patient request if the prescription is for a schedule II opioid drug., 174, cm, 01/21/23 14:10:00 EDT... Start Date: 01/23/23 Status: Ordered tranexamic acid 650 mg oral tablet 2 tablet = 1,300 mg, By Mouth, 3 times a day, for a maximum of 5 days during monthly menstruation, # 15 tablet, 3 Refills, Maintenance, 04/14/23 17:48:00 EST, Tablet, [facility], Partial fillupon patient request if the prescription [...] Primary Care Member Role: PCP Address: Address: [address] [place] [address] & [place] [address]- Care Team Related Persons Name: SUSIE HUMPHREYS Address: [address] [place] [address] Name: JOHN HUMPHREYS Address: AMER[employer] Address: [address] [place] [address] [place] Name: TRISH MANDUJANO Address: [place] [address] [place] [address]
--- OUTSIDE RECORDS SUMMARY | 2023-08-11 08:19 | XMS_ITS | Continuity of Care Document ---
Author Organization [facility] Address [address] [place] [address]- Care Team Providers Care Director Security Management Name Role Phone Priyank ADAMES, Michael Price Primary Care Physician [place] [facility] [place] 07/07/23 - 08/06/[address] [address]- Allergies, Adverse Reactions, Alerts No Known Allergies [...] 0 Refills, Maintenance, 01/23/23 12:53:00 EDT, Tablet, [facility]/pharmacy #0942, Partial fill upon patient request if the prescription is for a schedule II opioid drug., 174, cm, 01/21/23 14:10:00 EDT... Start Date: 01/23/23 Status: Ordered tranexamic acid 650 mg oral tablet 2 tablet = 1,300 mg, By Mouth, 3 times a day, for a maximum of 5 days during monthly menstruation, # 15 tablet, 3 Refills, Maintenance, 07/07/23 14:17:00 EDT, Tablet, [id number], Partial fillupon patient request if the prescription [...] Primary Care Member Role: PCP Address: Address: [address] [place] [address] [address] [place] [address]- Care Team Related Persons Name: SUSIE HUMPHREYS Address: [address] [place] [address] Name: JOHN HUMPHREYS Address: AMER[employer] Address: [address] [place] [address] [place] Name: TRISH MANDUJANO
--- OUTSIDE RECORDS SUMMARY | 2023-08-11 08:19 | XMS_ITS | Continuity of Care Document ---
Author Organization [facility] Address [address] [place] [address]- Care Team Providers Care Revenue Director Name Role Phone Priyank ADAMES, Michael Price Primary Care Physician [place] [facility] [place]/07/23 - 08/06/[address] [address]- Allergies, Adverse Reactions, Alerts No Known Allergies [...] 0 Refills, Maintenance, 01/23/23 12:53:00 EDT, Tablet, [facility]/pharmacy #[id number], Partial fill upon patient request if the prescription is for a schedule II opioid drug., 174, cm, 01/21/23 14:10:00 EDT... Start Date: 01/23/23 Status: Ordered tranexamic acid 650 mg oral tablet 2 tablet = 1,300 mg, By Mouth, 3 times a day, for a maximum of 5 days during monthly menstruation, # 15 tablet, 3 Refills, Maintenance, 07/07/23 14:17:00 EDT, Tablet, [facility], Partial fillupon patient request if the prescription [...] Primary Care Member Role: PCP Address: Address: [address] [place] [address] [address] [place] [address]- Care Team Related Persons Name: SUSIE HUMPHREYS Address: [address] [place] [address] Name: JOHN HUMPHREYS Address: AMER[employer] Address: [address] [place] [address] [place] Name: TRISH MANDUJANO
--- OUTSIDE RECORDS SUMMARY | 2023-08-11 08:19 | XMS_ITS | Continuity of Care Document ---
Author Organization [facility] Address [address] [place] [address]- Care Team Providers Care Move Coordinator Name Role Phone Priyank ADAMES, Michael Price Primary Care Physician [place] [facility] [place] 06/26/23 - 08/02/[address] [address]- Attending Physician: Not on Staff, Attending MD [...] Refills, Maintenance, 01/23/23 12:53:00 EDT, Tablet, [facility], Partial fill upon patient request if the prescription is for a schedule II opioid drug., 174, cm, 01/21/23 14:10:00 EDT... Start Date: 01/23/23 Status: Ordered tranexamic acid 650 mg oral tablet 2 tablet = 1,300 mg, By Mouth, 3 times a day, for a maximum of 5 days during monthly menstruation, # 15 tablet, 3 Refills, Maintenance, 07/07/23 14:17:00 EDT, Tablet, [id number], Partial fillupon patient request if the prescription [...] Care Member Role: PCP Address: Address: [address] [place] [address] [address] [place] [address]- Care Team Related Persons Name: SUSIE HUMPHREYS Address: [address] [place] [address] Name: JOHN HUMPHREYS Address: AMER[employer] Address: [address] [place] [address] Name: TRISH MANDUJANO
--- OUTSIDE RECORDS SUMMARY | 2023-08-11 08:19 | XMS_ITS | Continuity of Care Document ---
Author Organization [facility] Address [address] [place] [address]- Care Team Providers Care Social And Human Services Assistant Name Role Phone Priyank ADAMES, Michael Price Primary Care Physician Encounter [facility] Date(s): 01/22/23 - 02/21/[address] [address]- Allergies, Adverse Reactions, Alerts No Known Allergies [...] 02/28/23 20:38:00 EST, 02/21/23 20:38:00 EDT, Tablet, [facility]/pharmacy #0957, Partial fill upon patient request if the [...] Refills, Maintenance, 01/23/23 12:53:00 EDT, Tablet, [facility], Partial fill upon patient request if the [...] Team Personnel Name: Michael Yost MD Position: [facility] Physician - Primary Care Member Role: PCP Address: Address: [address] [place] [address] [address] [place] [address]- Care Team Related Persons Name: SUSIE HUMPHREYS Address: [address] [place] [address] Name: JOHN HUMPHREYS Address: AMER[employer] Address: [address] [place] [address] [place] Name: TRISH MANDUJANO Address: [address] [place] [address]
--- OUTSIDE RECORDS SUMMARY | 2023-08-11 08:19 | XMS_ITS | Continuity of Care Document ---
Author Organization [facility] Address [address] [place] [address]- Care Team Providers Care Magazine Grinder Loader Name Role Phone Priyank ADAMES, Michael Price Primary Care Physician Encounter [facility] [place] Date(s): 06/11/23 - 07/11/[address] [address]- Allergies, Adverse Reactions, Alerts No Known Allergies [...] 0 Refills, Maintenance, 01/23/23 12:53:00 EDT, Tablet, [facility]/pharmacy #0969, Partial fill upon patient request if the [...] Primary Care Member Role: PCP Address: Address: [address] [place] [address] [address] [place] [address]- Care Team Related Persons Name: SUSIE HUMPHREYS Address: [address] [place] [address] Name: JOHN HUMPHREYS Address: AMER[employer] Address: [address] [place] [address] [place] Name: TRISH MANDUJANO
--- OUTSIDE RECORDS SUMMARY | 2023-08-11 08:19 | XMS_ITS | Continuity of Care Document ---
Author Organization [facility] Address [address] [place] [address]- Care Team Providers Care Webbing Supervisor Name Role Phone Priyank ADAMES, Michael Price Primary Care Physician En[place] [facility] [place] Date(s): 05/22/23 - 06/21/[address] [address] Allergies, Adverse Reactions, Alerts No Known Allergies [...] 0 Refills, Maintenance, 01/23/23 12:53:00 EDT, Tablet, [facility]/pharmacy #0948, Partial fill upon patient request if the [...] Primary Care Member Role: PCP Address: Address: [address] [place] [address] & [place] [address]- Care Team Related Persons Name: SUSIE HUMPHREYS Address: [address] [place] [address] Name: JOHN HUMPHREYS Address: AMER[employer] Address: [address] [place] [address] [place] Name: TRISH MANDUJANO Address: [place] [address] [place] [address]
--- OUTSIDE RECORDS SUMMARY | 2023-08-11 08:19 | XMS_ITS | Continuity of Care Document ---
Author Organization [facility] Address [address] [place] [address]- Care Team Providers Care Training Professional Name Role Phone Priyank ADAMES, Michael Price Primary Care Physician Encounter [facility] [place] Date(s): 04/28/23 - 05/28/[address] [address]- Allergies, Adverse Reactions, Alerts No Known Allergies [...] 0 Refills, Maintenance, 01/23/23 12:53:00 EDT, Tablet, [facility]/pharmacy #0946, Partial fill upon patient request if the prescription is for a schedule II opioid drug., 174, cm, 01/21/23 14:10:00 EDT... Start Date: 01/23/23 Status: Ordered tranexamic acid 650 mg oral tablet 2 tablet = 1,300 mg, By Mouth, 3 times a day, for a maximum of 5 days during monthly menstruation, # 15 tablet, 3 Refills, Maintenance, 04/14/23 17:48:00 EST, Tablet, [facility], Partial fillupon patient request [...] Primary Care Member Role: PCP Address: Address: [address] [place], [place] [address]ch[address] [place] [address]- Care Team Related Persons Name: SUSIE HUMPHREYS Address: home [address] [place] [address] Name: JOHN HUMPHREYS Address: AMER[employer] Address: home [address] [place] [address] [place] Name: TRISH MANDUJANO Address: [place] [address] [place] [address]
--- OUTSIDE RECORDS SUMMARY | 2023-08-11 08:19 | XMS_ITS | Continuity of Care Document ---
Author Organization [facility] Address [address] [place] [address]- Care Team Providers Care 4Th Grade Math Teacher Name Role Phone Priyank ADAMES, Michael Price Primary Care Physician Encounter [facility] [place] Date(s): 07/03/23 - 08/02/[address] [address]- Allergies, Adverse Reactions, Alerts No Known Allergies [...] 0 Refills, Maintenance, 01/23/23 12:53:00 EDT, Tablet, [facility]/pharmacy #0989, Partial fill upon patient request if the prescription is for a schedule II opioid drug., 174, cm, 01/21/23 14:10:00 EDT... Start Date: 01/23/23 Status: Ordered tranexamic acid 650 mg oral tablet 2 tablet = 1,300 mg, By Mouth, 3 times a day, for a maximum of 5 days during monthly menstruation, # 15 tablet, 3 Refills, Maintenance, 07/07/23 14:17:00 EDT, Tablet, [id number], Partial fillupon patient request if the prescription [...] Primary Care Member Role: PCP Address: Address: [address] [place] [address] [address] [place] [address]- Care Team Related Persons Name: SUSIE HUMPHREYS Address: [address] [place] [address] Name: JOHN HUMPHREYS Address: AMER[employer] Address: [address] [place] [address] [place] Name: TRISH MANDUJANO
--- OUTSIDE RECORDS SUMMARY | 2023-08-11 08:19 | XMS_ITS | Continuity of Care Document ---
Author Organization [facility] Address [address] [place] [address]- Care Team Providers Care Electric Welder Helper Name Role Phone Priyank ADAMES, Michael Price Primary Care Physician Encounter [facility] Date(s): 02/09/23 - 03/11/[address] [address]- Allergies, Adverse Reactions, Alerts No Known Allergies [...] Refills, Maintenance, 01/23/23 12:53:00 EDT, Tablet, [facility], Partial fill upon patient request if the [...] Care Member Role: PCP Address: Address: [address] [place] [address] & [place] [address]- Care Team Related Persons Name: SUSIE HUMPHREYS Address: [address] [place] [address] Name: JOHN HUMPHREYS Address: AMER[employer] Address: [address] [place] [address] Name: TRISH MANDUJANO Address: home [address] [place] [address]
--- OUTSIDE RECORDS SUMMARY | 2023-08-11 08:19 | XMS_ITS | Continuity of Care Document ---
Author Organization [facility] Address [address] [place] [address]- Care Team Providers Care Carbonizer Name Role Phone Not on Staff, PCP Primary Care Physician Unavail able Encounter [facility] Date(s): 11/06/21 - 12/18/21 [facility] [address] [address] Attending Physician: Not on Staff, Attending MD [...] Active Advanced maternal age in multigravida(Confirmed) Active Obese class I(Confirmed) Active H/O hemorrhage(Confirmed) 2 Active state(Confirmed) Active UTI in (Confirmed) Active 1Per chart: Has therapist, takes medication. Patient aware of potential KELI of 2due to retained placenta Social History Social History Type Response Smoking Status Never (less than 100 in lifetime); Tobacco user in household: No entered on: 05/12/18 Sex Care Team Personnel Name: Not on Staff, PCP
--- OUTSIDE RECORDS SUMMARY | 2023-08-11 08:19 | XMS_ITS | Continuity of Care Document ---
Author Organization [facility] Address [address] [place] [address]- Care Team Providers Care Outpatient Pharmacy Manager Name Role Phone Michael Yost MD Primary Care Physician Encounter [facility] Date(s): 06/15/23 - 07/15/23 [facility] [address] [place], [place] [id number]- [place] Allergies, Adverse Reactions, Alerts No Known [...] Refills, Maintenance, 01/23/23 12:53:00 EDT, Tablet, [facility]/pharmacy #[id number], Partial fill upon patient request if the prescription is for a schedule II opioid drug., 174, cm, 01/21/23 14:10:00 EDT... Start Date: 01/23/23 Status: Ordered tranexamic acid 650 mg oral tablet 2 tablet = 1,300 mg, By Mouth, 3 times a day, for a maximum of 5 days during monthly menstruation, # 15 tablet, 3 Refills, Maintenance, 07/07/23 14:17:00 EDT, Tablet, [id number], Partial fillupon patient request if the prescription [...] Care Member Role: PCP Address: Address: [address] [place] [address] & [place] [address]- Care Team Related Persons Name: SUSIE HUMPHREYS Address: [address] [place] [address] Name: JOHN HUMPHREYS Address: [employer] Address: [address] [place] [address] Name: TRISH MANDUJANO
--- OUTSIDE RECORDS SUMMARY | 2023-08-11 08:19 | XMS_ITS | Continuity of Care Document ---
Author Organization [facility] Address [address] [place] [address]- Care Team Providers Care Activity Coordinator Name Role Phone Priyank ADAMES, Michael Price Primary Care Physician Encounter [facility] Date(s): 06/15/23 - 07/31/23 [facility] [address] [place], [place] [id number]- Attending Physician: Prakash REAL, Angela Pace Allergies, Adverse Reactions, Alerts No Known Allergies [...] Refills, Maintenance, 01/23/23 12:53:00 EDT, Tablet, [facility]/pharmacy #[id number], Partial fill upon patient request if the prescription is for a schedule II opioid drug., 174, cm, 01/21/23 14:10:00 EDT... Start Date: 01/23/23 Status: Ordered tranexamic acid 650 mg oral tablet 2 tablet = 1,300 mg, By Mouth, 3 times a day, for a maximum of 5 days during monthly menstruation, # 15 tablet, 3 Refills, Maintenance, 07/07/23 14:17:00 EDT, Tablet, [id number], Partial fillupon patient request [...] Primary Care Member Role: PCP Address: Address: [address] [place] [address] [address] [place] [address]- Care Team Related Persons Name: SUSIE HUMPHREYS Address: [address] [place] [address] Name: JOHN HUMPHREYS Address: [employer] Address: home [address] [place] [address] [place] Name: TRISH MANDUJANO
--- OUTSIDE RECORDS SUMMARY | 2023-08-11 08:19 | XMS_ITS | Continuity of Care Document ---
Author Organization [facility] Address [address] [place] [address]- Care Team Providers Care Chief Controller Name Role Phone Priyank ADAMES, Michael Price Primary Care Physician Encounter [facility] Date(s): 02/21/23 - 02/21/[address] [address]- Discharge Disposition: A-D/C Home Attending Physician: Chidi Gonzalez MD Admitting Physician: Chidi Gonzalez MD Referring Physician: Not on Staff, Referring [...] 02/28/23 20:38:00 EST, 02/21/23 20:38:00 EDT, Tablet, [id number], Partial fill upon patient request if the [...] Refills, Maintenance, 01/23/23 12:53:00 EDT, Tablet, [facility]/pharmacy #[id number], Partial fill upon patient request if the [...] medication. Patient aware of potential KELI of Results Radiology Reports * Exam Date Time Procedure Performing Provider Status 02/21/23 7:[address] Angio Chest Stefani Alcantara; (Verified) Notes: (CT Angio Chest) Reason For Exam: PE suspected, Intermediate prob, positive D-dimer,;Other: RESULT: CT Angio Chest EXAMINATION: CT Angio Chest INDICATION: Hx of Present Illness: Tender lump on the back of her head with pain that radiates to her ear and neck. Also reports brain fog and tiredness which was recently Dx as iron def anemia; Reason: Other:; PE suspected, Intermediate prob, positive D-dimer,; Clinical Question(s): Pulmonary Embolism TECHNIQUE: Spiral CTA of the chest was performed after rapid IV contrast administration without cardiac gating, triggered by an LADONNA on the main pulmonary artery. Images are formatted in multiple planes using 2-D multiplanar and 3-D maximum intensity projection. 100 cc of Omnipaque 300 was administered intravenously. Weight-based protocol using automatic tube modulation was used to optimize exposure parameters. CTDIvol Body: 21.56 mGy, DLP Body: 640 mGy*cm. COMPARISONS: None. ANGIOGRAPHIC FINDINGS: Evaluation is mildly limited by incomplete opacification of the pulmonary arteries with contrast. No pulmonary embolism to the subsegmental level. Normal caliber pulmonary arteries. No acute aortic abnormality seen on this study performed without cardiac gating. NON-ANGIOGRAPHIC FINDINGS: Transmission Worker View Findings, Lines and Tubes: None. Trachea and Airways: Patent without evidence of tracheal or endobronchial lesion. Lungs and Pleura: Clear lungs. No effusion or pneumothorax. Mediastinum and shavon: No mass or hematoma. No mediastinal or hilar lymphadenopathy. No esophageal abnormality. Normal thyroid. Heart: Heart is normal in size. No pericardial effusion. No coronary arterial calcifications. Chest Wall Soft Tissues: No acute abnormality. Diaphragm and upper abdomen: No significant abnormality. Bones: No acute abnormality. IMPRESSION: No evidence of pulmonary embolism. I have personally reviewed the images and I agree with this report. WSN: [id number] Ordering Physician: Carol Samuel Dictated By: Miles Francis MD Dictated Date/Time: 02/21/23 7:52 pm Reviewed By: Jarad Forde MD Signed By: Jarad Forde MD Signed Date/Time: 02/21/23 7:57 pm Transcribed By: MARIA FERNANDA Transcribed Date/Time: 02/21/23 7:43 pm Vital Signs Most recent to oldest [Reference Range]: 1 2 3 Height 172 cm (02/21/23 6:27 PM) 172 cm (02/21/23 4:09 PM) 172 cm (02/21/23 1:32 PM) Weight 99.4 kg (02/21/23 6: PM) 99.4 kg (02/21/23 4:09 PM) 99.4 kg (02/21/23 1:32 PM) Oxygen Saturation [94-100 %] 98 % (02/21/23 9:06 PM) 99 % (02/21/23: PM) 100 % (02/21/23 1:32 PM) Pulse Rate [55-90 bpm] 76 bpm (02/21/23 9:06 PM) 64 bpm (02/21/23 6:27 PM) 86 bpm (02/21/23 1:32 PM) Body Mass Index [18.5-24.99 kg/m2] 33.6 kg/m2 *>HHI* (02/21/23 6:27 PM) 33.6 kg/m2 *>HHI* (02/21/23 4:09 PM) Blood Pressure [90-138/55-84 mm Hg] 116/57mm Hg (02/21/23 9:06 PM) 104/42mm Hg (02/21/23 6:27 PM) 146/88mm Hg *H* (02/21/23 1:32 PM) Respiratory Rate [16-30 br/min] 16 br/min (02/21/23 9:06 PM) 16 br/min (02/21/23 6:27 PM) 18 br/min (02/21/23 1:32 PM) Temperature [96.8-100.4 DegF] 97.6 DegF (02/21/23 1:32 PM) Mode of Delivery (Oxygen) Room air (02/21/23 9:06 PM) Room air (02/21/23 6:27 PM) Room air (02/21/23 1:32 PM) Blood pressure sites Arm, left (02/21/23 9:06 PM) Arm, right (02/21/23 6:27 PM) Temperature Route Temporal (02/21/23 1:32 PM) Dry Weight 99.4 kg (02/21/23 6:27 PM) 99.4 kg (02/21/23 4:09 PM) 99.4 kg (02/21/23 1:32 PM) Social History Social History Type Response Smoking Status Never (less than 100 in lifetime); Tobacco user in household: No entered on: 05/12/18 Sex Note * Carol Rucker: PERFORM, SIGN, VERIFY Event Display: Patient Education Handout Authored Date: [id number] * Carol Rucker: PERFORM Event Display: Patient Education Leaflets Authored Date: [id number] Bladder Infection,??Female (Adult) ?? [id number] Bladder Infection,??Female (Adult) Urine normally doesn't have any germs (bacteria) in it. But bacteria can get into the urinary tractfrom the skin around the rectum. Or they can travel in the blood from other parts of the body. Oncethey are in your urinary tract, they can cause infection in these areas: ??? The urethra (urethritis) ??? The bladder (cystitis) ??? The kidneys (pyelonephritis) The most common place for an infection is in the bladder. This is called a bladder infection. This is one of the most common infections in women because women have a shorter urethra than men. Bacteria have a shorter distance to travel to reach the bladder.. Women who have gone through menopause also lose the protection from estrogen that lowers the chance of getting a UTI. And some women are at higher risk because of their genes. Most bladder infections are easily treated. They are not serious unless the infection spreads to the kidney. The terms bladder infection, UTI, and cystitis are often used to describe the same thing. But they are not always the same. Cystitis is an inflammation of the bladder. The??most common cause of cystitis is an infection. Symptoms The infection causes inflammation in the urethra and bladder. This causes many of the symptoms. Themost common symptoms of a bladder infection are: ??? Pain or burning when urinating ??? Having to urinate more often than normal ??? Urgent need to urinate ??? Only a small amount of urine comes out ??? Blood in urine ??? Belly (abdominal) discomfort. This is often in the lower belly above the pubic bone. ??? Lower back pain ??? Cloudy urine ??? Strong- or bad-smelling urine ??? Unable to urinate(urinary retention) ??? Unable to hold urine in (urinary incontinence) ??? Fever ??? Loss of appetite ??? Confusion (in older adults) ?? Causes Bladder infections are not contagious. You can't get one from someone else, from a toilet seat, or from sharing a bath. The most common cause of bladder infections is bacteria from the bowels. The bacteria get onto the skin around the opening of the urethra. From there, they can get into the urine. Then they travel upto the bladder, causing inflammation and infection. This often happens because of: ??? Wiping incorrectly after urinating. Always wipe from front to back. ??? Bowel incontinence ??? . Duringpregnancy urinary tract changes raise the risk for infection. ??? Procedures such as having a catheter put in ??? Older age ??? Not emptying your bladder. This can give bacteria a chance to grow in your urine. ??? Fluid loss (dehydration) ??? Constipation ??? Having sex ??? Using a diaphragm for control? Treatment Bladder infections are diagnosed by a urine test and urine culture. They are treated with antibiotics. They often??clear up quickly without problems. Treatment helps prevent a more serious kidney infection. ?? Medicines Medicines can help in the treatment of a bladder infection: ??? Take antibiotics until they are used up, even if you feel better. It's important to finish them to make sure the infection has cleared.??? You can use acetaminophen or ibuprofen for pain, fever, or discomfort, unless another medicine was prescribed. If you have long-term (chronic) liver or kidney disease, talk with your healthcare??provider before using??these medicines. Also talk with your provider if you've ever had a stomach ulcer or GI (gastrointestinal) bleeding, or are taking blood-thinner medicines. ??? If you are given??phenazopydridine to reduce burning with urination, it will make your urine a bright orange color. This can stain clothing. ?? Care and prevention These self-care steps can help prevent future infections: ??? Drink plenty of fluids. This helps toprevent dehydration and flush out your bladder. Do this??unless you must restrict fluids for other health reasons, or your healthcare provider told you not to. ??? Clean yourself correctly after going to the bathroom. Wipe from front to back after using the toilet. This helps prevent the spread of bacteria. ??? Urinate more often. Don't try to hold urine in for a long time. ??? Wear loose-fittingclothes and cotton underwear. Don't wear tight- fitting pants. ??? Improve your diet and prevent constipation. Eat more fresh fruits and vegetables, and??fiber. Eat less junk foods and fatty foods. ??? Don't have sex until your symptoms are gone. ??? Don't have caffeine, alcohol, and spicy foods. These can irritate your bladder. ??? Urinate right after you have sex to flush out your bladder. ??? If you use control pills and have frequent bladder infections, discuss it with your healthcare provider. ?? Follow-up care Call your healthcare provider if all symptoms are not gone after 3 days of treatment. This is especially important if you have repeat infections. If a culture was done, you will be told if your treatment needs to be changed. If directed, you cancall??to find out the results. If X-rays were done, you will be told if the results will affect your??treatment. ?? Call 911 Call 911 if any of the following occur: ??? Trouble breathing ??? Hard to wake up or??confusion ???Fainting (loss of consciousness) ??? Fast heart rate ?? When to get medical advice Call your healthcare provider right away if any of these occur: ??? Fever of 100.4??F (38.0??C) or higher, or as directed by your healthcare provider ??? Symptoms are not better??after 3 days of treatment ??? Symptoms get worse or you have new symptoms ??? Back or belly pain that gets worse ??? Repeated vomiting, or unable to keep medicine down ??? Weakness or dizziness ??? Vaginal discharge ??? Pain, redness, or swelling in the outer vaginal area (labia) ?? Last Reviewed Date: 2021 ?? [id number] [employer]. All rights reserved. This information is not intended as a substitute for professional medical care. Always follow your healthcare professional's instructions. ?? * Carol Rucker: PERFORM Event Display: Patient Education Leaflets Authored Date: [id number] Heavy Menstrual Bleeding ?? [id number] Heavy Menstrual Bleeding Heavy menstrual bleeding means that your periods are heavier or longer than normal.??You may soak through a pad or tampon every 1 to 3 hours on the heaviest days of your period.??You may also pass large, dark clots.??And your periods may last longer than 7 days. If you have heavy periods often, this can cause a problem called anemia.??With anemia, your red blood cell count is too low. Red blood cells are needed as they help carry oxygen all over your body.??Severe anemia may make you look pale and feel weak or tired. You might also get short of breath easily. There are many possible causes of heavy menstrual bleeding.??Hormonal imbalance is the most common cause. Having noncancer (benign) growths in your uterus is another cause.??These include fibroids orpolyps. Taking certain medicines or having certain health problems or bleeding disorders are also causes. To treat heavy menstrual bleeding, your healthcare provider may prescribe medicines first. If thesedon???t help, you may need more testing and treatments. Home care Medicines If you???re prescribed medicines, take them as directed. ??? To help control heavy bleeding, any of these may be used: o Hormone therapy (this includes all types of hormonal control such as pills, shots, cream, ring, patch, or hormone-releasing IUD) o Nonsteroidal anti-inflammatory drugs (NSAIDs), such as ibuprofen o Antifibrinolytic medicines, such as tranexamic acid ??? To help treat anemia, iron supplements may be prescribed. General care ??? Get plenty of rest if you tire easily. Avoid heavy exertion. ??? To help ease painor cramping, try using a heating pad on the lower belly or back. A warm bath may also help. ?? Follow-up care Follow up with your healthcare provider, or as advised. ?? When to get medical advice Call your healthcare provider right away if any of these occur: ??? Heavier bleeding (soaking 1 pador tampon every hour for 3 hours) ??? Heavy bleeding that lasts longer than 1 week ??? Fever of 100.4??F (38??C) or higher, or as directed by your healthcare provider ??? Pain or cramping that gets worse instead of better ??? Signs of anemia such as pale skin, extreme tiredness or weakness, or shortness of breath ??? Dizziness or fainting ?? Last Reviewed Date: 2022 ?? [id number] [employer]. All rights reserved. This information is not intended as a substitute for professional medical care. Always follow your healthcare professional's instructions. ?? * Carol Rucker: PERFORM Event Display: Patient Education Leaflets Authored Date: [id number] Iron-Deficiency Anemia (Adult) ?? [id number] Iron-Deficiency Anemia (Adult) Red blood cells carry oxygen to the tissues of your body. Anemia is a condition in which you have too few red blood cells. You need iron to make red cells. Anemia makes you feel tired and run down. When anemia becomes severe, your skin becomes pale. You may feel short of breath or have chest pain after physical activity. Other symptoms include: ??? Headaches, especially with physical activity ??? Rapid heart rate ??? Pounding or whooshing in the ears ??? General weakness, drowsiness, or dizziness ??? Brittle nails or hair loss ??? Leg cramps with physical activity ??? Restless legs ??? Urge to eat ice or nonfood items such as paper Your anemia is caused by not having enough iron in your body. This may be because of: ??? Loss of blood caused by heavy menstrual periods or bleeding from the stomach or intestines. ???Major surgery or physical trauma ??? Not eating enough foods that contain iron ??? Not being able to absorb iron from the foods you eat ??? If your blood count is low enough,??your healthcare provider??may prescribe an iron supplement. It usually takes about 2 to 3 months of treatment with iron supplements to correct anemia. Severe casesof anemia need a blood transfusion to quickly ease symptoms and deliver more oxygen to the cells. Home care Follow these guidelines when caring for yourself at home: ??? Eat foods high in iron. This will boost the amount of iron stored in your body. It's a natural way to build up the number of blood cells.Good sources of iron include beef, liver, poultry, fish, spinach, and other dark green leafy vegetables, whole grains, beans, and nuts. ??? Don't overexert yourself. ??? Talk with your provider before traveling by air or traveling to high altitudes. ?? Follow-up care Follow up with your provider in 2 months or as directed by your provider .It's important to have another red blood cell count test to be sure your anemia is getting better. ?? Call 911 Call 911 if any of these occur: ??? Shortness of breath or chest pain ??? Dizziness or fainting ???Vomiting blood or passing red or black-colored stool? Last Reviewed Date: 2021 ?? [employer]. All rights reserved. This information is not intended as a substitute for professional medical care. Always follow your healthcare professional's instructions. ?? Patient Care team information Care Team Personnel Name: Michael Yost MD Position: [facility] Physician - Primary Care Member Role: PCP Address: Address: [address] [place] [address] [address] [place] [address]- Name: Demi Acharya Position: [facility] ED RN W/OE and Tasks Member Role: Patient Care Provider Name: Carol Rucker Position: [facility] Associate Professional Member Role: Physician Nursing Instructor Address: Address: [address] [place] [address]- Name: Evy Judd Position: [facility] ED TA [facility] Member Role: Patient Care Provider Name: Chidi Gonzalez MD Position: [facility] ED Medicine MD Member Role: Admitting Physician Address: Address: [address] [place] [address]- Care Team Related Persons Name: SUSIE HUMPHREYS Address: home [address] [place] [address] Name: JOHN HUMPHREYS Address: [employer] Address: home [address] [place] [address] [place] Name: TRISH MANDUJANO Address: home [address] [place] [address]
--- OUTSIDE RECORDS SUMMARY | 2023-08-11 08:19 | XMS_ITS | Continuity of Care Document ---
Author Organization [facility] Address [address] [place] [address]- Care Team Providers Care Grant Manager Name Role Phone Not on Staff, PCP Primary Care Physician Unavail able Encounter [facility] Date(s): 07/12/19 - 07/22/[facility] [address] [place] [address]- [facility] Attending Physician: Rebeca Garcia Admitting Physician: Rebeca Garcia Referring Physician: AdmtrRebeca Allergies, Adverse Reactions, Alerts Substance Reaction Severity Status NKA Active Medications Tofranil 10 mg oral tablet See Instructions, 3 tablet By Mouth daily, 0 Refills, Maintenance, 05/03/18 11:29:39 EST Start Date: 05/03/18 Status: Ordered Problem List Condition Effective Dates Status Health Status Inform ant Injury of left elbow(Confirmed) 05/03/18 Active Social History Social History Type Response Smoking Status Never (less than 100 in lifetime); Tobacco user in household: No entered on: 05/12/18 Sex
--- OUTSIDE RECORDS SUMMARY | 2023-08-11 08:19 | XMS_ITS | Continuity of Care Document ---
Author Organization [facility] Address [address] [place] [address]- Care Team Providers Care Operations Systems Specialist Name Role Phone Priyank ADAMES, Michael Price Primary Care Physician Encounter [facility] Date(s): 07/03/23 - 08/02/[address] [address]- Attending Physician: Rebeca Garcia Admitting Physician: Rebeca [...] Refills, Maintenance, 01/23/23 12:53:00 EDT, Tablet, [id number], Partial fill upon patient request if the prescription is for a schedule II opioid drug., 174, cm, 01/21/23 14:10:00 EDT... Start Date: 01/23/23 Status: Ordered tranexamic acid 650 mg oral tablet 2 tablet = 1,300 mg, By Mouth, 3 times a day, for a maximum of 5 days during monthly menstruation, # 15 tablet, 3 Refills, Maintenance, 07/07/23 14:17:00 EDT, Tablet, [id number], Partial fillupon patient request if the prescription [...] medication. Patient aware of potential KELI of Procedures Procedure Date Related Diagnosis Body Site [...] Primary Care Member Role: PCP Address: Address: [address] [place] [address] & [place] [address]- Care Team Related Persons Name: SUSIE HUMPHREYS Address: [address] [place] [address] Name: JOHN HUMPHREYS Address: [employer] Address: [address] [place] [address] [place] Name: TRISH MANDUJANO
--- OUTSIDE RECORDS SUMMARY | 2023-08-11 08:19 | XMS_ITS | Continuity of Care Document ---
Author Organization [facility] Address [address] [place] [address]- Care Team Providers Care Slitter Scorer Cut Off Operator Name Role Phone Not on Staff, PCP Primary Care Physician Unavail able Encounter [facility] Date(s): 12/24/21 - 07/19/[address] [address]- Attending Physician: Scarlett Anderson CNM Admitting Physician: [...] Personnel Name: Not on Staff, PCP Position: [facility] Physician (General Medicine) Member Role: PCP Care Team Related Persons Name: SUSIE HUMPHREYS Address: [address] [place] [address] Name: JOHN HUMPHREYS Address: [employer] Address: [address] [place] [address] Name: TRISH MANDUJANO Address: [address] [place] [address]
--- OUTSIDE RECORDS SUMMARY | 2023-08-11 08:19 | XMS_ITS | Continuity of Care Document ---
Author Organization [facility] Address [address] [place] [address]- Care Team Providers Care Performance Improvement Analyst Name Role Phone Priyank ADAMES, Michael Price Primary Care Physician Encounter [facility] Date(s): 01/30/23 - 03/01/23 [facility] Care [address] [place] [address] Attending Physician: Rebeca Garcia Admitting Physician: AdmtrRebeca Referring Physician: Admtr, Ar8 Allergies, Adverse Reactions, Alerts No Known Allergies [...] Refills, Maintenance, 01/23/23 12:53:00 EDT, Tablet, [id number], Partial fill upon patient request if the [...] Team Personnel Name: Michael Yost MD Position: [facility] Physician - Primary Care Member Role: PCP Address: Address: [address] [place] [address] [place] [address]- Care Team Related Persons Name: SUSIE HUMPHREYS Address: [address] [place] [address] Name: JOHN HUMPHREYS Address: [employer] Address: [address] [place] [address] Name: TRISH MANDUJANO Address: home [address] [place] [address]
--- OUTSIDE RECORDS SUMMARY | 2023-08-11 08:19 | XMS_ITS | Continuity of Care Document ---
Author Organization [facility] Address [address] [place] [address]- Care Team Providers Care Foot Specialist Name Role Phone Lisa ADAMES ([facility]), Francisca Hidalgo Primary Care Ph ysician Encounter [facility] Date(s): 11/14/19 - 11/21/19 [facility] [address] [place] [address]- [facility] Attending Physician: Phil ADAMES, Wilbert Lay Referring Physician: Che ADAMES, Salazar Rojas Allergies, Adverse Reactions, Alerts Substance Reaction Severity [...] recent to oldest [Reference Range]: 1 Weight 113.6 kg (11/14/19 8:59 AM) Dry Weight 113.6 kg (11/14/19 8:59 AM) Social History Social History Type Response Smoking Status Former smoker, quit more than 30 days ago; Other: quit >10 years ago; entered on: 09/26/19 Sex
--- OUTSIDE RECORDS SUMMARY | 2023-08-11 08:19 | XMS_ITS | Continuity of Care Document ---
Author Organization [facility] Address [address] [place] [address]- Care Team Providers Care Research Methods Instructor Name Role Phone Priyank ADAMES, Michael Price Primary Care Physician [place] [facility] [place](s): 10/17/22 - 01/15/23 [facility] [address] [address]- Attending Physician: Scarlett Anderson CNM Admitting Physician: Scarlett Anderson CNM Allergies, Adverse Reactions, [...] Team Personnel Name: Michael Yost MD Position: [facility] Physician - Primary Care Member Role: PCP Address: Address: [address] [place] [address] [address] [place] [address]- Care Team Related Persons Name: SUSIE HUMPHREYS Address: [address] [place] [address] Name: JOHN HUMPHREYS Address: [employer] Address: home [address] [place] [address] Name: TRISH MANDUJANO Address: [address] [place] [address]
--- OUTSIDE RECORDS SUMMARY | 2023-08-11 08:20 | XMS_ITS | Continuity of Care Document ---
Author Organization [facility] Address [address] [place] [address]- Care Team Providers Care Public Health Professor Name Role Phone Priyank ADAMES, Michael Price Primary Care Physician Encounter [facility] Date(s): 01/23/23 - 02/22/[address] [address]- Allergies, Adverse Reactions, Alerts No Known Allergies [...] EST, 02/21/23 20:38:00 EDT, Tablet, [id number], Partial fill upon patient request if the [...] Refills, Maintenance, 01/23/23 12:53:00 EDT, Tablet, [id number], Partial fill upon patient request if the [...] Team Personnel Name: Michael Yost MD Position: [facility] Physician - Primary Care Member Role: PCP Address: Address: [address] [place] [address] [address] [place] [address]- Care Team Related Persons Name: SUSIE HUMPHREYS Address: [address] [place] [address] Name: JOHN HUMPHREYS Address: [employer] Address: [address] [place] [address] [place] Name: TRISH MANDUJANO Address: [place] [address] [place] [address]
--- OUTSIDE RECORDS SUMMARY | 2023-08-11 08:20 | XMS_ITS | Continuity of Care Document ---
Author Organization [facility] Address [address] [place] [address]- Care Team Providers Care Assistant Restaurant General Manager Name Role Phone Angel Henley DO Primary Care Physician Encounter [facility] Date(s): 03/05/22 - 04/04/22 [facility] [address] [place] [address] Allergies, Adverse Reactions, Alerts No Known Allergies Immunizations Given and Recorded Vaccine Date Status Refusal Reason tetanus/diphtheria/pertussis, acel(Tdap) 09/28/19 Given Medications AutoCPAP 8-16 with heated humidification AutoCPAP 8-16 with heated humidification, See Instructions, # 1 each, Refills 0, Tot. Refills 0, Maintenance, use overnight and naps from [employer], 02/26/22 11:02:00 EST, Compound Start Date: 02/26/22 Status: Ordered Tofranil 10 mg oral tablet [...] Care team information Care Team Personnel Name: Angel Henley DO Position: [facility] Outreach Member Role: PCP Address: Address: [address] [place] [address]- Care Team Related Persons Name: SUSIE HUMPHREYS Address: [address] [place] [address] Name: JOHN HUMPHREYS Address: [employer] Address: [address] [place] [address] Name: TRISH MANDUJANO Address: home [address] [place] [address]
[2023-08-11] MEDS: Lactated Ringers 1,000 ML 100 ML IVCONT ×2 (08:50→16:14)
[2023-08-11] MEDS: Lactated Ringers 1,000 ML 999 ML IV (08:50)
[2023-08-11] MEDS: Aprepitant 32 MG/4.4 ML VIAL IVPUSH (08:50)
[2023-08-11 08:54] LABS: UPreg QC Valid YES; Urine Pregnancy NEGATIVE (NEGATIVE)
--- NOTE | 2023-08-11 09:27 | PHA.MEDREC ---
Pharmacy Consult ? Medication Reconciliation Pharmacy has completed the medication reconciliation. Pharmacy has reviewed med rec done by admission.
--- NOTE | 2023-08-11 10:30 | MHC.SHP ---
Pre-Procedural Eval Section A - 24 Hr Update-Section A only Date of Service: 08/11/23 The patient is an INPATIENT: Yes Section B - Complete if H&P > 30 days Chief Complaint: obesity Relevant Family History (Specify if Yes): No Relevant Social History: None Present Medications: None Medical History: No relevant PMH History of Previous Operations: No relevant previous surgery Allergies: Allergies Allergy/AdvReac Type Severity Reaction Status Date / Time steri strips-adhesive Allergy Intermediate Blister Uncoded 08/04/23 11:09 Review of Systems Sugical H&P ROS: Negative: Constitution, Cardiovascular, Respiratory, Neurological, Psychiatric, Hem-Onc, Allergic/Immunologic, Gastrointestinal, Genitourinary, Musculoskeletal, Integumentary, Endocrine and Eyes/Ears/Nose/Throat Exam Surgical H&P Exam: Normal: HEENT, Normal: Heart, Normal: Lungs, Normal: Extremities, Normal: Abdomen, Normal: Skin and Normal: Neurological Plan Diagnosis/Plan: Unchanged I have reviewed the history and physical and performed a pertinent physical examination on my patient. No changes have occurred unless specified. Time Spent With Patient Time: Total time managing care of this patient today ____ minutes.
--- NOTE | 2023-08-11 10:36 | PM.OP ---
Brief Operative Note Date of Service: 08/11/23 Pre-op diagnosis: Severe obesity with comorbidities (see below) Post-op diagnosis: same (& incarcerated diaphragmatic hernia) Procedure: INITIAL PATIENT BMI ON PRESENTATION AT OUR OFFICE: 36.6 kg/m2 LAST BMI BEFORE SURGERY: 30.4 kg/m2 COMORBIDITIES: Sleep apnea on CPAP, anxiety, menorrhagia, cholelithiasis ?The patient presented to the Weight Management Program with significant obesity that was negatively impacting the patient's comorbidities as listed above.? The program is a phased program with a special focus on preoperative medical weight management to promote substantial weight loss and prepare the patients for the second phase of the program: bariatric surgery. The patient participated in an intensive weekly lifestyle ?intervention and exercise program during which the patient ?has lost between the initial office visit and the last preoperative visit 43 lbs, or 16% of initial actual body weight. It was deemed appropriate for the patient to now have bariatric surgery. In light of the current Covid-19 pandemic and the well documented strong association of obesity and increased risk of worse outcomes if infected with Covid-19 (REFERENCES:https://pubmed.ncbi.nlm.nih.gov/61003318/,?https://pubmed.ncbi.nlm.nih.gov/76675791/), any delay in undergoing bariatric surgery may lead to the patient's worsening health condition and increased?risk of more severe Covid-19 disease if infected. In addition a recent?study from [facility] published in [employer] on 04/15/2021 (file:///C:/[email or web address] [email or web address]) found that, among patients with obesity, substantial weight loss achieved with surgery was associated with improved outcomes of COVID-19 infection. The findings suggest that obesity can be a modifiable risk factor for the severity of COVID-19 infection. In addition, the patient met the BMI-criteria for bariatric surgery based on the BMI on initial presentation. The patient should not be penalized for achieving such weight loss because ?it is not sustainable long-term without surgical intervention and it was achieved in preparation for bariatric surgery ?under my direction and based on my published research ([email or web address]/C:/[email or web address]).pdf and?https://www.soard.org/article/X6400-4223(17)19330-X/pdf) ?that a 10% preoperative weight loss improves long-term weight loss after surgery and reduces perioperative complications.? Insurance carriers such as [facility] have endorsed my recommendations ?and have included in their policies criteria to include a 10% preoperative weight loss requirement. PROCEDURE: Esophago-gastroscopy, laparoscopic repair of incarcerated diaphragmatic hernia, laparoscopic sleeve gastrectomy and laparoscopic gastropexy INDICATIONS: This is a 42 year-old female who was electively scheduled for laparoscopic, possibly open sleeve gastrectomy. The risks and complications of the procedure were discussed with the patient in advance, particularly the possibility of ; pulmonary embolism; staple line leak; bleeding; GERD; cardiac, pulmonary, or renal complications; as well as long-term problems such as insufficient weight loss, vitamin deficiency, strictures, or ulcers. The patient understood all the risks, and was in agreement to proceed with surgery. DESCRIPTION OF PROCEDURE: After informed consent was obtained from the patient, the patient was given preoperative antibiotics, and was transferred to the operating room. After successful induction of general anesthesia, pneumatic compression devices were placed on both lower extremities. An upper endoscopy was performed next. The oropharynx and esophagus appeared to be within normal limits. There was a diaphragmatic hernia present. The stomach was entered. Then after all fluid and air were suctioned and the stomach was fully decompressed, the scope was withdrawn and secured in the mid esophagus. The patient was then prepped and draped in the usual sterile manner, and abdominal access was established at the right upper quadrant with the Pascual technique. A 12 mm blunt port was inserted, and the abdomen was insufflated with CO2 to a pressure of 15 mmHg. Under direct visualization, additional ports were placed, specifically two 5 mm Versi-step ports to the left upper quadrant, and a 5 mm Versi-Step port to the right upper quadrant. 1% lidocaine plain was used to infiltrate all port sites as well as all fascia defects. Following that, the patient was placed in a steep reverse Trendelenburg position. An additional 5 mm port was placed to the right flank for the Mediflex retractor that was used to retract the left lobe of the liver. The gastro-esophageal fat pad was opened with the ultrasonic device (Thunderbeat, Olympus) and the anterior esophagus and hiatus were exposed. The angle of His was opened with the ultrasonic device the fundus of the stomach from any diaphragmatic and splenic attachments. I then opened the gastrocolic ligament between the transverse colon and the greater curvature of the stomach with the ultrasonic device to enter the lesser sac and facilitate the ligation of the short gastric vessels. I started at a mid-point along the greater curvature and using the Thunderbeat, all short gastric vessels were divided all the way to the angle of His until the left yuli was completely dissected at its entirety. I then divided the gastro-colic ligament distally to a distance of about 3-4 cm proximal to the pylorus. There was an obvious significant-sized hiatal hernia. I continued dissecting along the hiatus toward the left yuli and the angle of His. I fully mobilized the fat pad that was incarcerated in the hernia. I then continued by dissecting even further into the posterior retro-esophageal space all the way to the angle of His. I continued to mobilize the esophagus into the mediastinum circumferentially. Both vagal nerves were seen and preserved. At that point, I was able to have at least 3 to 5 cm of esophagus into the abdomen.? After I completely mobilized the esophagus from both the left and right yuli and I had a good mobilization of the esophagus circumferentially, I closed the hernia defect with three interrupted #0 Surgidac sutures using the Endo Stitch device, two of which was placed posterior and one of which anterior to the esophagus. ? The stomach was then divided transversely with three Endo CECILIA-45 purple and two CECILIA-6s0 articulating purple loads using the SIGNIA stapler and loads. Every effort was made that the gastric sleeve had a tubular shape and an even caliber throughout. Once the sleeve resection was completed, the staple line of the gastric sleeve was reinforced with Hemoclips. The resected stomach was retrieved without difficulty from the Pascual port. A gastropexy was then performed in order to prevent postoperative GERD and partial gastric volvulus. Several interrupted 2.0 Surgidac sutures were placed between the sleeve's staple line and the previously divided greater omentum and gastro-colic ligament using the Endo-Stitch device. ?An upper endoscopy was performed. There was no narrowing at the GE junction. The scope was easily advanced all the way to the pylorus which was clearly visualized. There was no narrowing anywhere and the sleeve's caliber was even throughout. The sleeve's staple line was inspected and there was no evidence of ischemia, bleeding or dehiscence. At that point the gastroscope was withdrawn from the patient?s mouth while we were decompressing the bowel and the stomach from any remaining air. I looked into the lesser sac to see how the sleeve was situating and it was situating well. There was no bleeding from the staple line, spleen, or short gastric vessels. The Mediflex retractor was removed, and the undersurface of the liver was inspected and there was no bleeding. The patient was placed in supine position. I closed the fascial defect of the 12 mm port site with a figure of eight #1 Polysorb suture. Then 30cc Ropivacaine plain with 10 mg of Dexamethasone were used to infiltrate the fascial closure as well as all skin incisions. A total of 5ml Zynrelef was applied in the Pascual wound. At this point, the abdomen was deflated, all ports were removed under direct vision, and no bleeding was noted from any of the port sites. The skin incisions were irrigated with saline and were closed with 4-0 absorbable monofilament sutures. Steri-Strips and OpSites were used to cover all incisions. The patient was extubated and was transferred in stable condition to the recovery room for further care. I was present and performed all ayala parts of the procedure. Ms. Ledesmakarunakurt was the engineer first assistant. There were no residents to assist with this case. Andrea Leavitt MD, PhD, FACS Surgeon: Shahab Leavitt MD Anesthesia: GETA, local and other (TAP block and 5ml Zynrelef) Was an Rose Grower used for this Procedure?: No Rose Grower: Amira Gomez Estimated blood loss (mL): 10 IV fluids (mL): 2,500 Urine output (mL): 0 (No Wright to record output) Pathology: other (Stomach) Condition: stable Disposition: PACU
--- NOTE | 2023-08-11 10:39 | P.PNGS_ITS ---
Subjective Subjective Date of Service: 08/12/23 Interval history: Feels well. Mild incisional pain. She is tolerating phase 1 bariatric diet Physical Exam 2 Vital Signs: Vital Signs: Last Vital Signs Temp 97.1 F 08/11/23 08:44 Pulse 68 08/11/23 08:44 Resp 16 08/11/23 08:44 BP 116/63 08/11/23 08:44 Pulse Ox 99 08/11/23 08:44 O2 Del Method Room Air 08/11/23 08:44 BMI result Body Mass Index 31.3 GI: Inspection: Yes normal to inspection, Yes incision (clean, dry and intact) and Yes obesity Palpation (GI): Soft to palpation Extrem: Right lower extremity: normal to inspection (no calf tenderness) L eft lower extremity: normal to inspection (no calf tenderness) Objective Data Active Medications Fentanyl (Fentanyl Citrate/Pf 100 Mcg/2 Ml Vial) 25 mcg IVPUSH Q5M PRN; Protocol PRN Reason: Pain, Moderate(Pain Scale 4-6) Stop: 08/11/23 14:55 Hydromorphone HCl (Hydromorphone Hcl 0.5 Mg/0.5 Ml Syringe) 0.25 mg IVPUSH Q5M PRN; Protocol PRN Reason: Pain, Severe (Pain Scale 7-10) Stop: 08/11/23 14:55 Lactated Ringer's (Lr) 1,000 mls @ 100 mls/hr IVCONT .Q10H AMY Last Admin: 08/11/23 08:50 Dose: 100 mls/hr Documented By: JULIO CESAR Ondansetron HCl (Ondansetron Hcl 4 Mg/2 Ml Vial) 4 mg IVPUSH ONCE PRN PRN Reason: Nausea and Vomiting Stop: 08/11/23 14:55 Labs 08/12/23 05:39 08/12/23 05:39 Labs: Laboratory Results - last 24 hr 08/11/23 08:05 Urine Test NEGATIVE Procedures Date of Service Date of Service: 08/12/23 Progress Note: A&P Assessment and plan (1) Obesity: Status: Acute Assessment and Plan: s/p laparoscopic sleeve gastrectomy, diaphragmatic hernia repair and gastropexy Doing well Will check am labs and if OK the patient will be discharged home (2) Sleep apnea with use of continuous positive airway pressure (CPAP): Status: Acute (3) Heavy menses: Status: Acute (4) Cholelithiasis: Status: Acute (5) Generalized anxiety disorder: Status: Acute (6) Diaphragmatic hernia: Status: Acute (7) S/P laparoscopic sleeve gastrectomy: Status: Acute (8) Status post repair of paraesophageal diaphragmatic hernia: Status: Acute Time Spent With Patient Time: Total time managing care of this patient today ____ minutes. Quality Stroke Does the patient have a stroke diagnosis?: No VTE Prior VTE?: No VTE Risk Level:: Surgical - moderate VTE Device Contraindication: N/A - Device Ordered VTE Drug Contraindication: Treatment Not Indicated
--- NOTE | 2023-08-11 13:45 | P.DS_ITS ---
DS: Providers Provider Date of Service: 08/12/23 Date of admission: 08/11/23 08:04 Primary care physician: Michael Yost MD DS: Diagnosis Discharge Diagnosis (1) Obesity: Status: Acute (2) Sleep apnea with use of continuous positive airway pressure (CPAP): Status: Acute (3) Heavy menses: Status: Acute (4) Cholelithiasis: Status: Acute (5) Generalized anxiety disorder: Status: Acute DS: Summary Hospital Course Hospital Course: ADMITTING DIAGNOSIS: morbid obesity,?BENJAMIN with CPAP, anxiety, cholelithiasis, heavy menses ? DISCHARGE DIAGNOSIS: same, s/p laparoscopic sleeve gastrectomy with gastropexy and repair diaphragmatic hernia ? PAST SURGICAL HISTORY:? Hx of dilation and curettage History of wisdom tooth extraction Hx of breast biopsy ? PROCEDURE: upper endoscopy, laparoscopic sleeve gastrectomy with gastropexy and repair of diaphragmatic hernia ? DISCHARGE SUMMARY: ? History of Present Illness: ? The patient is a? 42? year-old woman with a BMI of? ?31.3 ? kg/m2 and associated co-morbidities as described above. The patient had extensive work-up, lost? 33.4? ? lbs preoperatively and was electively scheduled for laparoscopic, possible open sleeve gastrectomy and gastropexy. Risks and complications of the surgery were discussed with the patient in advance, particularly the possibility of , pulmonary embolism, anastomotic leak, bleeding, bowel injury, GERD, cardiac, renal or pulmonary complications. The patient understood all the risks and was in agreement with the surgical plan. ? Hospital Course: ? The patient underwent an uneventful laparoscopic sleeve gastrectomy with gastropexy and repair of diaphragmatic hernia on the day of admission. Postoperatively, the patient was transferred to the surgical floor. The patient received IV Acetaminophen and IV dilaudid for pain control. Patient was started on bariatric phase 1 diet POD #0. On postoperative day one, the patient was feeling well without nausea, vomiting, fevers, or tachycardia. The patient had some mild incisional pain and the abdomen was soft.? ? On the morning of postoperative day one, the patient was continued on 1 ounce of water or ice every half hour. During the day, the patient did fairly well, having some incisional pain, but able to ambulate adequately and to tolerate liquids well. ? Since the patient is doing well, we decided that the patient was ready to be discharged. The patient was given instructions to follow-up with me next week and to call my office for any fever over 101, persistent abdominal pain, nausea, vomiting, GERD, symptoms of DVT such as calf tenderness, or leg swelling, or pulmonary embolism such as chest pain or shortness of breath.? The patient was also instructed to drink 40-60 ounces of liquids per day using the 1-ounce cups. The patient had been given prescriptions for Tylenol for pain, Zofran prn for nausea, and pantoprazole and carafate previously. The patient was encouraged to ambulate and use the incentive spirometer. The patient was allowed to shower, but no baths, and encouraged to stay active at home. All of these instructions were given to the patient personally. All questions were answered and the patient understood all instructions, the instructions were also given to the patient in print. Time Attestation Discharge Coordination Time (in mins): 30 Quality: Safe Use of Opioids Does Pt have an Active Cancer Diagnosis on the Problem List?: No Quality: Stroke Does the patient have a stroke diagnosis?: No Physical Exam Vital Signs: Vital Signs: Last Vital Signs Temp 97.1 F 08/11/23 08:44 Pulse 68 08/11/23 08:44 Resp 16 08/11/23 08:44 BP 116/63 08/11/23 08:44 Pulse Ox 99 08/11/23 08:44 O2 Del Method Room Air 08/11/23 08:44 BMI result Body Mass Index 31.3 DS: Data Data Completed and Pending Pending studies at discharge: Pending at discharge 08/11/23 12:49 Surgical [PTH] Routine Labs on day of discharge: Laboratory Results - last 24 hr 08/11/23 08:05 Urine Test NEGATIVE Discharge Plan Discharge Anticipated Discharge Date/Time: 08/12/23 10:00 Patient Disposition: Home, Self-Care Discharge Diagnosis: s/p laparoscopic sleeve gastrectomy with hiatal hernia repair Referrals: Michael Yost MD [Primary Care Provider] - 1 Week Discharge Medications: Continued pantoprazole 40 mg tablet,delayed release (DR/EC) 40 mg PO DAILY@0630 ondansetron 4 mg tablet,disintegrating 4 mg PO Q12H PRN (Reason: nausea and vomiting) sucralfate 100 mg/mL suspension 10 ml PO BID Qty: 600 2RF (DME) CPAP Machine/Device Device See Rx Instructions .Route Rx Instructions: As directed clonazepam 1 mg tablet 1 mg PO DAILY PRN (Reason: Anxiety) Discontinued cholecalciferol (vitamin D3) 125 mcg (5,000 unit) capsule 125 mcg PO DAILY Qty: 90 0RF tranexamic acid 650 mg tablet 1,300 mg PO TID PRN (Reason: during menses) Rx Instructions: for maximum of 5 days during menses multivitamin Tablet 1 tab PO DAILY Discharge Orders: Discharge Order (Routine); Ordered 08/12/23 Ordered By: Shahab Leavitt Activity on Discharge: No heavy lifting Stand Alone Forms: Patient Portal Discharge page Print Language: Bhutanese Care Plan Goals: weight loss Health Concerns: obesity Plan of Treatment: No tub baths, sex or returning to work until discussed at first post op appointment. No alcohol, tobacco or illegal drug use. Continue to use incentive spirometer hourly while awake. Walk in home for 5- 10 minutes every 2 hours during the first week. Wear abdominal binder with activity. Follow all meal plan instructions from your bariatric surgeon. Review bariatric handbook and call with any questions. Discharge Instructions 1. Please call your doctor or come back to the emergency room should any new symptoms arise. 2. Activity: abstain from alcohol,? limited stair climbing, no bending, no driving, no exercise, no illicit substances, no lifting, no sex, no tub bath, no work. 4. Diet: follow your bariatric surgeons recommendations for advancing diet. 5. Dressing Change/Wound Care: Your incisions are covered with waterproof dressings. You can shower with these and pat dry. Do not rub over dressings or incisions. If the area is tender, you may apply an ice pack for short intervals (no more than 20 minutes on, followed by at least 20 minutes off). Do not apply heat. Do not use creams, lotions, or topical antibiotics unless instructed to do so by your surgeon. 6. Call your doctor if: - Your temperature exceeds 101.5 F - You experience excessive pain or swelling - You have an unexpected reaction to medication - You have excessive bleeding - You experience continued vomiting/nausea - Your incision begins to separate - Your incision shows signs of infection such as increased redness, swelling, excessive pain, heat, or drainage (light blood or clear fluid is normal) General instructions: No lifting greater than 10 lbs for the next 6 weeks. [address] driving within 24 hours of taking narcotic pain medications. If you do not move your bowels in the next 2 days, please take milk of magnesia over the counter. Please follow the post op diet and do not advance your diet until you are seen in the office in about 2 weeks. Please walk around your home every hour or two to prevent blood clots from forming in your legs. You do not need to wake from sleeping to walk. Please sleep in a bed or couch to prevent kinking at the hips and knees. Please take your incentive spirometer (your lung time study statistician) home with you and use it for the next few days to prevent pneumonias. You may shower, no hot tubs, baths or swimming pools. Please call the office with any questions or concerns such as increasing abdominal pain, fever, chills, shortness of breath, chest pain, leg pain or swelling, or redness or drainage from your incisions. Please make sure you are consuming 40-60 ounces of total fluids per day. Avoid all carbonation. Do not hesitate to contact the office with any questions at . The patient's medical history has been reviewed and they are considered low risk for post op DVT and therefore DVT prophylaxis is not considered necessary. Travel after surgery was reviewed. The patient has not disclosed any travel plans during the first 30 days after surgery and they have been advised that within the first 30 days after surgery any bus, plane, train or car travel over 2 hours in duration is contraindicated due to the possibility of developing blood clots from immobility. Any travel, needs to include periods of ambulation of 10 minutes in duration every 2 hours.? The patient was instructed to discuss any plans for travel during this period with their bariatric surgeon. Assessment: s/p laparoscopic sleeve gastrectomy with hiatal hernia repair Discharge Date/Time: 08/12/23 09:53
[2023-08-11] MEDS: HYDROmorphone HCl 0.5 MG/0.5 ML SYRINGE 0.25 MG IVPUSH ×3 (14:35→15:45)
[2023-08-11] MEDS: ceFAZolin Sodium/Dextrose,Iso 2 GM/50 ML PIGGYBACK IV (16:14)
[2023-08-11] MEDS: 0.9 % Sodium Chloride Flush 3 ML SYRINGE IVFLUSH (16:14)
--- NOTE | 2023-08-11 16:31 | PC.NURSE ---
Pt voided in PACU after surgery
[2023-08-11] MEDS: Acetaminophen 1,000 MG/100 ML PIGGYBACK 16.7 MG IV ×2 (17:01→23:33)
--- NOTE | 2023-08-11 17:36 | PC.NURSE ---
Pt c/o numbness to her left Thumb and 1st and 2nd digits. MD Martinez notified. No new orders at this time. No swelling, strong pulse, no discoloration. Able to feel 4th and 5th finger.
[2023-08-11 17:44] LABS: Hematocrit 40.6 % (37.0-47.0); Hemoglobin 13.6 g/dl (12.0-16.0)
[2023-08-11 18:07] LABS: Anion Gap 21 (12-20); Blood Urea Nitrogen 8 mg/dL (9-16); Calcium 8.8 mg/dL (8.4-10.2); Carbon Dioxide 16 mmol/L (22-29); Chloride 105 mmol/L (96-108); Creatinine Clr Calc Pharmacy 114.2; Estimated Glomerular Filt Rate > 60; Glucose Random 123 mg/dL (60-115); Potassium 3.9 mmol/L (3.3-5.1); Sodium 138 mmol/L (135-145)
[2023-08-11] MEDS: ondansetron HCL 4 MG/2 ML VIAL IVPUSH (19:24)
[2023-08-11] MEDS: Famotidine/PF 20 MG/2 ML VIAL IVPUSH (21:24)
[2023-08-12] MEDS: Lactated Ringers 1,000 ML 100 ML IVCONT (01:13)
[2023-08-12] MEDS: ondansetron HCL 4 MG/2 ML VIAL IVPUSH (02:41)
[2023-08-12 03:28] VITALS: BP 116/57; PULSE 73; RESP 20; TEMP 36.4; O2SAT 97
[2023-08-12] MEDS: Acetaminophen 1,000 MG/100 ML PIGGYBACK 16.7 MG IV (05:51)
[2023-08-12 06:25] LABS: MANUAL DIFF FLAG NO
[2023-08-12 06:49] LABS: Anion Gap 16 (12-20); Blood Urea Nitrogen 7 mg/dL (9-16); Calcium 8.9 mg/dL (8.4-10.2); Carbon Dioxide 17 mmol/L (22-29); Chloride 106 mmol/L (96-108); Creatinine Clr Calc Pharmacy 129.3; Estimated Glomerular Filt Rate > 60; Glucose Random 105 mg/dL (60-115); Sodium 135 mmol/L (135-145)
[2023-08-12 06:51] LABS: Basophils Percent Auto 0.1 % (0-2); Hematocrit 37.4 % (37.0-47.0); Hemoglobin 12.4 g/dl (12.0-16.0); Imm Gran Abs Auto 0.05 X10*3/uL (0.00-0.03); Imm Gran Pct Auto 0.6 % (0.0-0.4); Lymphocytes Absolute Auto 0.7 X10*3/uL (1.2-4.9); Lymphocytes Percent Auto 8.7 % (20-40); Mean Corpuscular HGB Conc 33.2 g/dl (31.0-35.0); Mean Corpuscular Hemoglobin 30.7 pg (27.0-33.0); Mean Corpuscular Volume 92.6 fL (80.0-98.0); Mean Platelet Volume 11.9 fL (9.4-12.3); Monocytes Absolute Auto 0.6 X10*3/uL (0.1-1.2); Monocytes Percent Auto 7.4 % (2-11); Neutrophils Absolute Auto 6.7 x10*3/uL (2.0-8.3); Neutrophils Percent Auto 83.2 % (45-73); Platelet Count 246 X10*3/uL (160-400); Red Blood Count 4.04 X10*6/uL (4.20-5.50); Red Cell Distribution Width 14.9 % (11.0-16.0); White Blood Count 8.1 X10*3/uL (4.8-10.8)
[2023-08-12 07:14] VITALS: BP 112/56; PULSE 71; RESP 14; TEMP 36.3; O2SAT 96
[2023-08-12] MEDS: Famotidine/PF 20 MG/2 ML VIAL IVPUSH (08:29)
--- NOTE | 2023-08-12 09:08 | MHC.CM.PN ---
pt dcd home self care
--- NOTE | 2023-08-12 12:17 | HO.POSTANES ---
Post Anesthesia Evaluation Post Anesthesia Evaluation Date of Service: 08/11/23 Vital Signs: Vital Signs Temp Pulse Resp BP Pulse Ox O2 Del Method 08/12/23 07:14 97.3 F 71 14 112/56 L 96 Room Air 08/12/23 03:28 97.5 F 73 20 116/57 L 97 CPAP Anesthesia: General Endotracheal-GETA Mental Status: Awake Pain Control: Satisfactory Nausea/Vomiting: None Hydration: Adequate Anesthesia-Related Issues: No Anes. Related Issues
== END 2023-08-12 09:53 | disposition home or self-care (01) | DRG 620 ==
LOC: HO.SSSA 13:44 → HO.S3 14:17
PROVIDERS: Nurse Practitioner; Physician Assistant Surgical; Admitting Provider Surgery; PCP Nurse Practitioner Family; Visit Provider Surgery
PROC: 0DB64Z3 Excision of Stomach, Percutaneous Endoscopic Approach, Vertical (ICD-10-PCS; CPT 43845; principal; 2023-08-11 10:10)
DX: E66.01 Morbid (severe) obesity due to excess calories (principal); K44.0 Diaphragmatic hernia with obstruction, without gangrene; F41.1 Generalized anxiety disorder; G47.33 Obstructive sleep apnea (adult) (pediatric); K80.20 Calculus of gallbladder without cholecystitis without obstruction; N92.0 Excessive and frequent menstruation with regular cycle; Z68.30 Body mass index [BMI] 30.0-30.9, adult; Z87.891 Personal history of nicotine dependence; Z79.899 Other long term (current) drug therapy
CPT/HCPCS: 36415; 80048; 81025; 85014; 85018; 85025; 86850; 86900; 86901; 88307; 88342; A4649; C9088; C9145; J0131; J0690; J1100; J1170; J2250; J2371; J2405; J2704; J2795; J3010; J7120

== ENCOUNTER → 2023-08-11 08:04 | Outpatient (BNV) | payer OTHER, MEDICAID, SELFPAY | PROVIDERS: Admitting Provider Surgery; PCP Internal Medicine; Visit Provider Surgery | DX: E66.01 Morbid (severe) obesity due to excess calories (principal); Z68.36 Body mass index [BMI] 36.0-36.9, adult; G47.30 Sleep apnea, unspecified; N92.0 Excessive and frequent menstruation with regular cycle; K80.20 Calculus of gallbladder without cholecystitis without obstruction; F41.1 Generalized anxiety disorder | CPT/HCPCS: 43281; 43659; 43775; 99024 ==

== ENCOUNTER 2023-08-18 10:26 | Outpatient (AMB) | payer OTHER, SELFPAY ==
[2023-08-18 11:15] VITALS: BP 108/55; PULSE 74; TEMP 36.8; O2SAT 94
--- NOTE | 2023-08-18 11:15 | MHC.OFFVISWM ---
VS Expanded 08/18/23 11:15 BP 108/55 L Blood Pressure Location Rt brachial Blood Pressure Position Sitting Pulse 74 Pulse Source Pulse Oximeter Temp 98.2 F Temperature Source Tympanic Pulse Oximetry 94 Oxygen Delivery Method Room Air Height 5 ft 7 in Weight 191 lb 6.4 oz BMI 30.0 Body Fat % 33.6 Body Fat Mass 64.4 Fat Free Mass 127.0 Visceral Fat Rating 7.0 Body Water % 47.4 Body Water Mass 90.6 Muscle Mass/Score 120.6 Basal Metabolic Rate/Score 1,722 Intake Visit Reasons: (OV) PO LSG 08/11/23 Allergies steri strips-adhesive Allergy (Intermediate, Uncoded 08/18/23 11:17) Blister HPI Comments Details: Patient is a pleasant 42-year-old female who returns to the office today in follow-up. She is 7 days status post sleeve gastrectomy with hiatal hernia repair performed on 08/11/2023. She had an intolerance to the celebrate 4 in 1 shakes and has switch to Isopure 1 scoop each, x3 shakes with an additional 32 oz of fluids. She has moved her bowels. Her only complaint is of afternoon fatigue. 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 She was enquiring about the addition of a caffeinated beverage. I suggested she discuss this with Dr. Leavitt which she will do. [facility] Medical History (Updated 08/12/23 @ 00:01 by Natan Nicole) BMI 36.0-36.9,adult Heavy menses Sleep apnea with use of continuous positive airway pressure (CPAP) Surgical History (Updated 08/18/23 @ 11:18 by Kirstin Obregon CMA) Hx of laparoscopic partial gastrectomy History of esophagogastroduodenoscopy (EGD) Hx of dilation and curettage History of wisdom tooth extraction Hx of breast biopsy Family History Maternal Aunt Breast CA Social History Household Members: Spouse Housing: House Are you a primary home health care social worker to a significant other at home: No Do you presently have visiting nurse or other home services: No Alcohol intake: current Alcohol intake frequency: does not drink Comment: once a week Patient Tobacco Use Status: Former Tobacco user Quit Date: >10 years ago-smoked very occasionally Tobacco use type: Cigarette service: No Physical Exam Vital Signs: Last Vital Signs Temp 98.2 F 08/18/23 11:15 Pulse 74 08/18/23 11:15 BP 108/55 L 08/18/23 11:15 Pulse Ox 94 08/18/23 11:15 Oxygen Delivery Method Room Air 08/18/23 11:15 BMI result Body Mass Index 30.0 GI Inspection: Yes incision (Clean, dry, intact.) Assessment & Plan Assessment & Plan (1) S/P laparoscopic sleeve gastrectomy: Code(s): Z98.84 - Bariatric surgery status Category: Surgical Plan: POD 7 s/p LSG with hiatal hernia repair on 08/11/[address] Leavitt Weight loss prior to surgery was 33.9 pounds or 14.5 % TBWL. Original weight on 06/23/2023 was 233.4 pounds and op weight was 199.5 pounds. Be sure to text Dr Leavitt exactly 1 week after surgery your weight from your home scale so he can adjust your meal plan. Continue meal plan until f/u w Amira in 2 weeks May shower, no submersion in bath for another week Continue abdominal binder with activity and exercise for the next 2 weeks. Exercise prior to surgery was treadmill and may resume No abdominal exercises for 6 weeks post operatively Will be emailed link to post op video for review Reminded of the pace of drinking, 2 mL per minute, 1 oz/15 min.
== END 2023-08-18 11:59 | disposition home or self-care (01) ==
PROVIDERS: PCP Internal Medicine; Visit Provider Physician Assistant Surgical
DX: Z98.84 Bariatric surgery status (principal)
CPT/HCPCS: 99024

== ENCOUNTER → 2023-08-18 10:26 | Outpatient (BNVA) | payer OTHER, SELFPAY | PROVIDERS: PCP Internal Medicine; Visit Provider Physician Assistant Surgical ==

== ENCOUNTER 2023-08-24 12:20 | Outpatient (AMB) | payer OTHER, MEDICAID, SELFPAY ==
[2023-08-24 12:24] VITALS: BMI 29.9
--- NOTE | 2023-08-24 12:24 | MHC.OFFVIS ---
Vital Signs 08/24/23 12:24 Height 5 ft 7 in Weight 191 lb BMI 29.9 Intake Visit Reasons: New patient Vaginal bleeding Intake Note: hx heavy periods, clots [facility]: [facility] Present ([facility]rina) Allergies steri strips-adhesive Allergy (Intermediate, Uncoded 08/24/23 12:27) Blister Is last menstrual period known: Yes Last menstrual period: 08/24/23 HPI Comments Details: Presenting for a 2nd opinion regarding heavy menstrual cycles associated with passage of blood clots. The patient gives a history of hemoglobin around 8 status post 2 iron transfusion last H&H recent was 12.4/37.4, TSH within normal. According to the patient, the following workup was done recently, no records are available: H&H, TSH within normal Pelvic ultrasound no pathology Endometrial normal Co testing done in 12/10 negative Mammogram done in 02/09 was normal The patient had Mirena IUD and did not respond to it, was prescribed Lysteda which helped reduce the menstrual cycles but not to an acceptable level. The patient was counseled about different options of treatment and hysterectomy was recommended at [facility], the patient is still waiting for the procedure to be scheduled. [facility] Medical History BMI 36.0-36.9,adult Heavy menses Sleep apnea with use of continuous positive airway pressure (CPAP) Surgical History Hx of laparoscopic partial gastrectomy History of esophagogastroduodenoscopy (EGD) Hx of dilation and curettage History of wisdom tooth extraction Hx of breast biopsy Family History Maternal Aunt Breast CA Social History Household Members: Spouse Housing: House Are you a primary career center director to a significant other at home: No Do you presently have visiting nurse or other home services: No Alcohol intake: current Alcohol intake frequency: does not drink Comment: once a week Patient Tobacco Use Status: Former Tobacco user Quit Date: >10 years ago-smoked very occasionally Tobacco use type: Cigarette service: No Female Reproductive History Menstrual Date of last menstrual period: 08/24/23 Review of Systems Const All systems reviewed & are unremarkable except as noted in HPI and below Physical Exam Vital Signs: BMI result Body Mass Index 29.9 General: Yes no CVA tenderness External Female Exam: normal external appearance and normal appearance of the urethra Speculum Exam - Vagina: normal appearance of the vagina, normal palpation, no lesions and no masses Speculum Exam - Cervix: normal appearance of the cervix, normal palpation, no lesions, no masses and nontender Bimanual exam- vagina & uterus: normal bimanual exam, normal palpation, uterine size normal, normal palpation, uterine shape normal, No Cervical tenderness present and non-tender Bimanual Exam- Adnexa, other: normal adnexae Back/Spine/Pelvis Back: no CVA tenderness Results AMB Test Urine AMB Test Urine Negative Last Edit by MANA Muir on 08/24/23 12:36 Results Reviewed Results Reviewed: Laboratory Last Values [facility]st Clinic Negative 08/24/23 12:35 Assessment & Plan Assessment & Plan (1) Abnormal uterine bleeding (AUB): Code(s): N93.9 - Abnormal uterine and vaginal bleeding, unspecified Category: Medical Plan: Discussed with the patient the options of treatment including Lysteda, BCP's, Mirena IUD, endometrial ablation and hysterectomy. All pros, cons, risks and benefits if each option was discussed with the patient and recommended to the patient decided to stay with [facility] for a hysterectomy. All questions answered the patient verbalized understanding. Orders: Orders AMB HCG Urine Test Today N92.0 - Excessive and frequent menstruation with regular cycle CT NG by PCR Today N92.0 - Excessive and frequent menstruation with regular cycle Coding Level of Care Code New Pt Level 3 (59257) Diagnoses Abnormal uterine bleeding (AUB) N93.9
== END 2023-08-24 13:41 | disposition home or self-care (01) ==
PROVIDERS: PCP Internal Medicine; Visit Provider Obstetrics & Gynecology
DX: N93.9 Abnormal uterine and vaginal bleeding, unspecified (principal); N92.0 Excessive and frequent menstruation with regular cycle
CPT/HCPCS: 99203

== ENCOUNTER 2023-08-24 12:20 | Outpatient (REF) | payer OTHER, MEDICAID, SELFPAY ==
[2023-08-24 15:16] LABS: CT PCR NOT DETECTED (Not Detect.); NG PCR NOT DETECTED (Not Detect.)
== END 2023-08-24 12:21 | disposition home or self-care (01) ==
LOC: HO.LNP 12:20
PROVIDERS: PCP Internal Medicine; Visit Provider Obstetrics & Gynecology
DX: N92.0 Excessive and frequent menstruation with regular cycle (principal); N93.9 Abnormal uterine and vaginal bleeding, unspecified; Z20.2 Contact with and (suspected) exposure to infections with a predominantly sexual mode of transmission
CPT/HCPCS: 0353U; 81025

== ENCOUNTER 2023-09-25 09:14 | Outpatient (AMB) | payer OTHER, SELFPAY ==
--- NOTE | 2023-09-25 09:17 | MHC.OFFVISWM ---
VS Expanded 09/25/23 09:23 BP 114/76 Blood Pressure Location Rt brachial Blood Pressure Position Sitting Pulse 77 Pulse Source Pulse Oximeter Temp 97.1 F Temperature Source Temporal Artery Scan Pulse Oximetry 100 Oxygen Delivery Method Room Air Height 5 ft 7 in Weight 173 lb 6.4 oz BMI 27.2 Body Fat % 28.9 Body Fat Mass 50.0 Fat Free Mass 123.2 Visceral Fat Rating 5.0 Body Water % 50.8 Body Water Mass 88.0 Muscle Mass/Score 117.0 Basal Metabolic Rate/Score 1,651 Intake Visit Reasons: (OV) PO LSG 08/11/23 Cpr Instructor Required: No Allergies steri strips-adhesive Allergy (Intermediate, Uncoded 09/25/23 09:26) Blister Medication List - Last Reconciled 09/25/23 by CRISTY Owens clonazepam 1 mg PO DAILY PRN CPAP (CPAP Machine/Device) As directed pantoprazole 40 mg PO DAILY@0630 sucralfate 10 mL PO BID HPI Comments Details: This?a?42?yo female who is s/p LSG with hiatal hernia repair on?08/11/2023. Presents for 6 week post op visit. Weight today is 173.4 pounds, with a BMI of 27.2. There has been a 60 pound weight loss,(initial weight 233.4 pounds) since starting the program on 06/23/2023 reflecting a 25.7 % total body weight loss and a weight loss of 26.1 pounds since surgery (operative weight 199.5 pounds) reflecting a 13 % TBWL since surgery. No complaints of nausea, emesis, abdominal pain or reflux. Reports infrequent but normal bowel movements every 1-2 days and uses stool softeners regularly. Taking Bariatric fusion mvi and rad + D States she is tired of the bars and wants something savory. Present meal plan includes: Isopure infusion 1 scoop in 8 oz water x 6, 630 am-8 pm ZP bar 4-5 pm 96 oz water total daily ? Exercise routine includes: treadmill 3-3.2 speed incline 2-8, 350 calories, 7 days per week. [facility] Medical History BMI 36.0-36.9,adult Heavy menses Sleep apnea with use of continuous positive airway pressure (CPAP) Surgical History Hx of laparoscopic partial gastrectomy History of esophagogastroduodenoscopy (EGD) Hx of dilation and curettage History of wisdom tooth extraction Hx of breast biopsy Family History Maternal Aunt Breast CA Social History Household Members: Spouse Housing: House Are you a primary client care representative to a significant other at home: No Do you presently have visiting nurse or other home services: No Alcohol intake: current Alcohol intake frequency: does not drink Comment: once a week Patient Tobacco Use Status: Former Tobacco user Tobacco use type: Cigarette service: No Physical Exam Vital Signs: Last Vital Signs Temp 97.1 F 09/25/23 09:23 Pulse 77 09/25/23 09:23 BP 114/76 09/25/23 09:23 Pulse Ox 100 09/25/23 09:23 Oxygen Delivery Method Room Air 09/25/23 09:23 BMI result Body Mass Index 27.2 Const General: healthy appearing and no acute distress Resp Effort & Inspection: normal respiratory effort Auscultation: clear to auscultation bilaterally Cardio Rate: regular rate Rhythm: regular rhythm GI Auscultation: normal bowel sounds Extrem General: Yes normal to inspection Assessment & Plan Assessment & Plan (1) S/P laparoscopic sleeve gastrectomy: Code(s): Z98.84 - Bariatric surgery status Category: Surgical Plan: Change meal plan per patient request. A superior infusion, 1 scoop in 8 oz of water, x5, meal with 4 forks of protein and 2 forks of vegetables. Return to clinic 6 weeks. Encouraged to text weekly with any questions or concerns.
[2023-09-25 09:23] VITALS: BP 114/76; PULSE 77; TEMP 36.2; O2SAT 100; BMI 27.2
== END 2023-09-25 09:59 | disposition home or self-care (01) ==
PROVIDERS: PCP Internal Medicine; Visit Provider Physician Assistant Surgical
DX: Z90.3 Acquired absence of stomach [part of] (principal); Z98.84 Bariatric surgery status
CPT/HCPCS: 99024

== ENCOUNTER → 2023-09-25 09:14 | Outpatient (BNVA) | payer OTHER, SELFPAY | PROVIDERS: PCP Internal Medicine; Visit Provider Physician Assistant Surgical ==

== ENCOUNTER 2023-11-16 08:43 | Outpatient (AMB) | payer OTHER, SELFPAY ==
[2023-11-16 08:41] VITALS: BMI 24.6
--- NOTE | 2023-11-16 08:41 | MHC.OFFVISWM ---
VS Expanded 11/16/23 08:41 Height 5 ft 7 in Weight 156 lb 12.8 oz BMI 24.6 Body Fat % 35.3 Body Fat Mass 55.3 Fat Free Mass 101.4 Visceral Fat Rating 6.6 Body Water % 46.2 Body Water Mass 72.4 Muscle Mass/Score 95.2 Basal Metabolic Rate/Score 1,385 Intake Visit Reasons: (TV) PO LSG 08/11/23 Vehicle Leasing And Rental Manager Required: No Allergies steri strips-adhesive Allergy (Intermediate, Uncoded 09/25/23 09:26) Blister Medication List - Last Reconciled 11/16/23 by CRISTY Owens clonazepam 1 mg PO DAILY PRN CPAP (CPAP Machine/Device) As directed HPI Comments Details: This?a?42?yo female who is s/p LSG with hiatal hernia repair on?08/11/2023. Presents for 3 month post op visit. Weight today is 156.8 pounds, with a BMI of 24.6. There has been a 76.6 pound weight loss,(initial weight 233.4 pounds) since starting the program on 06/23/2023 reflecting a 32.8 % total body weight loss and a weight loss of 42.7 pounds since surgery (operative weight 199.5 pounds) reflecting a 21.4 % TBWL since surgery. No complaints of nausea, emesis, abdominal pain or reflux. Reports infrequent but normal bowel movements every 1-2 days and uses stool softeners regularly. Taking Bariatric fusion mvi and rad + D States she is recovering from Covid. She has changed her meal plan to 3 meals per day and supplementing with protein protein coffee (5 oz rtd fairlife (9 gm) or 1 scoop of isopure (26 gm w fairlife milk approx 28 gm total) 1 egg and 1/2 chicken sausage (10 gm) tuna w FF givens or 1/2 c cottage cheese (14 gm) beef stick (10 gm) 6 forks protein 2 forks veg (21 gm) sudanese yogurt bar (12 gm) 60 oz water ? Exercise routine includes: treadmill 3-3.2 speed incline 2-8, 350 calories, 7 days per week. [facility] Medical History BMI 36.0-36.9,adult Heavy menses Sleep apnea with use of continuous positive airway pressure (CPAP) Surgical History Hx of laparoscopic partial gastrectomy History of esophagogastroduodenoscopy (EGD) Hx of dilation and curettage History of wisdom tooth extraction Hx of breast biopsy Family History Maternal Aunt Breast CA Social History Household Members: Spouse Housing: House Are you a primary dialysis patient care technician to a significant other at home: No Do you presently have visiting nurse or other home services: No Alcohol intake: current Alcohol intake frequency: does not drink Comment: once a week Patient Tobacco Use Status: Former Tobacco user Tobacco use type: Cigarette service: No Telehealth Telehealth Telehealth Platform: Telephone Location of provider rendering services: practice address Location of patient: address on file Patient Identification confirmed using: Name, : Yes Telehealth method: voice only Patient verbally consented to treatment: Yes Patient verbally consented to billing insurance company: Yes Patient informed of any privacy concerns related to visit: Yes Minutes spent on Phone/Video with Pt.: 20 Assessment & Plan Assessment & Plan (1) S/P laparoscopic sleeve gastrectomy: Code(s): Z98.84 - Bariatric surgery status Category: Surgical Plan: Patient will continue exercise once she recovers from COVID. Recommend decreasing her morning scoop of protein to half or removal of the beef stick or removal of the yogurt. She has achieved a healthy weight. She will continue her multivitamin and calcium plus D. Discussed adding weight training for weight-bearing exercises. We will have her return to the office as scheduled. She will text with any questions or concerns.
== END 2023-11-16 09:14 | disposition home or self-care (01) ==
LOC: HO.HBS 08:43
PROVIDERS: Visit Provider Physician Assistant Surgical
DX: Z71.3 Dietary counseling and surveillance (principal); Z90.3 Acquired absence of stomach [part of]; Z98.84 Bariatric surgery status
CPT/HCPCS: 99442

== ENCOUNTER → 2023-11-16 08:43 | Outpatient (BNVA) | payer OTHER, SELFPAY | PROVIDERS: Visit Provider Physician Assistant Surgical ==